=== PATIENT | female | born 1965 | race Caucasian/White ===

== ENCOUNTER 2019-01-01 09:15 | Emergency (ER) | payer MEDICARE, MEDICAID ==
[~2019-01-01] VITALS: Ht 149.9 cm; Wt 70.3 kg
[~2019-01-01 09:15] MED LIST: ACYC200C PO; ASP81TEC PO; ATEN25TA PO; NTR.4SL SL; QUIN1TAB3 PO
--- NOTE | 2019-01-01 09:38 | ED General ---
General Chief Complaint: Respiratory Problems Stated Complaint: SOB,NAUSEA - HAS GAINED 6 LBS SINCE YESTERDAY Source of Information: Patient History of Present Illness Date Seen by Provider: January 01, 2019 Time Seen by Provider: 09:38 Initial Comments Patient presents emergency department for evaluation of shortness of breath and weight gain. Patient says she has gained approximately 20 pounds since July and she said she has gained 6 pounds overnight. She has a history of stage II diastolic congestive heart failure and follows with a electronic page makeup system operator at [facility]. She is on torsemide currently as the furosemide stopped working for her. She said she took 80 mg of her Lasix this morning. She says the shortness of breath can happen at rest and exertion is worse when she lies flat. She was able to walk to a room from the front with no noticeable dyspnea. She has had a heart catheterization in 2012 that showed no signs of ischemia. She says that she has felt achy in all her joints and muscles and tired since yesterday along with nausea. She does have chronic back pain issues and says her back is hurting more as well. She has had no incontinence weakness numbness tingling. She is in no obvious distress with normal vital signs including conduction saturation 100% and a normal blood pressure. Allergies and Home Medications Allergies Coded Allergies: Codeine (Verified Allergy, 04/21/13) meperidine (Verified Allergy, 04/21/13) Home Medications Acyclovir 200 Mg Cap, 200 MG PO BID PRN, (Reported) Aspirin 81 Mg Tabec, 81 MG PO DAILY, (Reported) Atenolol 25 Mg Tablet, 25 MG PO DAILY, (Reported) Nitroglycerin 0.4 Mg Subl, 0.4 MG SL NEEDED, (Reported) for chest pain Quinapril/Hydrochlorothiazide 1 Tab Tablet, 1 TAB PO DAILY, (Reported) Patient Home Medication List Home Medication List Reviewed: Yes Review of Systems Review of Systems Constitutional: No chills, No fever EENTM: No blurred vision Respiratory: No cough; dyspnea on exertion, short of breath Cardiovascular: No chest pain; edema Gastrointestinal: No abdominal pain Genitourinary: No dysuria Musculoskeletal: joint pain, muscle pain Skin: No rash Psychiatric/Neurological: Denies Headache All Other Systems Reviewed Negative Unless Noted: Yes Physical Exam Vital Signs Vital Signs - First Documented 01/01/19 09:22 Temp 97.8 Pulse 89 Resp 20 B/P (MAP) 151/85 (107) Pulse Ox 98 O2 Delivery Room Air Capillary Refill : Height, Weight, BMI Height: '" Weight: 153lbs. oz. 69.069954cs; BMI Method: General Appearance: No Apparent Distress, WD/WN HEENT: PERRL/EOMI Neck: Full Range of Motion Respiratory: Chest Non Tender, No Accessory Muscle Use, No Respiratory Distress , Other (breath sounds slightly diminished but no crackles or wheezing noted) Cardiovascular: Regular Rate, Rhythm, No Gallop, No JVD, No Murmur, Normal Peripheral Pulses, Other (1+ edema in bilateral lower extremities) Gastrointestinal: Non Tender, Soft Back: Normal Inspection, No Vertebral Tenderness Extremity: Normal Capillary Refill Neurologic/Psychiatric: Alert, Oriented x3 Skin: Normal Color, Warm/Dry Progress/Results/Core Measures Suspected Sepsis SIRS Temperature: Pulse: Respiratory Rate: Laboratory Tests 01/01/19 09:27: White Blood Count 6.1 Blood Pressure / Mean: Laboratory Tests 01/01/19 09:27: Creatinine 0.72, INR Comment 0.9, Platelet Count 289, Total Bilirubin 0.4 Results/Orders Lab Results Laboratory Tests Test 01/01/19 09:27 01/01/19 09:53 Range/Units White Blood Count 6.1 4.3-11.0 10^3/uL Red Blood Count 4.40 4.35-5.85 10^6/uL Hemoglobin 13.5 11.5-16.0 G/DL Hematocrit 40 35-52 % Mean Corpuscular Volume 90 80-99 FL Mean Corpuscular Hemoglobin 31 25-34 PG Mean Corpuscular Hemoglobin Concent 34 32-36 G/DL Red Cell Distribution Width 12.4 10.0-14.5 % Platelet Count 289 130-400 10^3/uL Mean Platelet Volume 9.3 7.4-10.4 FL Neutrophils (%) (Auto) 44 42-75 % Lymphocytes (%) (Auto) 46 H 12-44 % Monocytes (%) (Auto) 8 0-12 % Eosinophils (%) (Auto) 1 0-10 % Basophils (%) (Auto) 1 0-10 % Neutrophils # (Auto) 2.7 1.8-7.8 X 10^3 Lymphocytes # (Auto) 2.8 1.0-4.0 X 10^3 Monocytes # (Auto) 0.5 0.0-1.0 X 10^3 Eosinophils # (Auto) 0.1 0.0-0.3 10^3/uL Basophils # (Auto) 0.0 0.0-0.1 10^3/uL Prothrombin Time 12.4 12.2-14.7 SEC INR Comment 0.9 0.8-1.4 Activated Partial Thromboplast Time 26 24-35 SEC Sodium Level 145 135-145 MMOL/L Potassium Level 4.0 3.6-5.0 MMOL/L Chloride Level 104 98-107 MMOL/L Carbon Dioxide Level 21 21-32 MMOL/L Anion Gap 20 H 5-14 MMOL/L Blood Urea Nitrogen 22 H 7-18 MG/DL Creatinine 0.72 0.60-1.30 MG/DL Estimat Glomerular Filtration Rate > 60 BUN/Creatinine Ratio 31 Glucose Level 92 70-105 MG/DL Calcium Level 9.4 8.5-10.1 MG/DL Corrected Calcium 9.2 8.5-10.1 MG/DL Magnesium Level 2.1 1.8-2.4 MG/DL Total Bilirubin 0.4 0.1-1.0 MG/DL Aspartate Amino Transf (AST/SGOT) 15 5-34 U/L Alanine Aminotransferase (ALT/SGPT) 17 0-55 U/L Alkaline Phosphatase 76 40-136 U/L Troponin T 10 <=10 NG/L Pro-B-Type Natriuretic Peptide 225.0 H <75.0 PG/ML Total Protein 6.8 6.4-8.2 GM/DL Albumin 4.3 3.2-4.5 GM/DL Urine Color YELLOW Urine Clarity CLEAR Urine pH 6.0 5-9 Urine Specific [place] <1.005 1.016-1.022 Urine Protein NEGATIVE NEGATIVE Urine Glucose (UA) NEGATIVE NEGATIVE Urine Ketones NEGATIVE NEGATIVE Urine Nitrite NEGATIVE NEGATIVE Urine Bilirubin NEGATIVE NEGATIVE Urine Urobilinogen 0.2 NORMAL MG/DL Urine Leukocyte Esterase TRACE NEGATIVE Urine RBC (Auto) 1+ H NEGATIVE Urine RBC 0-2 /HPF Urine WBC RARE /HPF Urine Squamous Epithelial Cells 0-2 /HPF Urine Crystals NONE /LPF Urine Bacteria NONE /HPF Urine Casts NONE /LPF Urine Mucus NEGATIVE /LPF Urine Culture Indicated NO My Orders Orders - DOUG SNEED DO Chest 1 View Ap/Pa Only (01/01/19 09:38) Ua Culture If Indicated (01/01/19 09:38) Troponin T (01/01/19 09:38) Cbc With Automated Diff (01/01/19 09:38) Comprehensive Metabolic Panel (01/01/19 09:38) Magnesium (01/01/19 09:38) Partial Thromboplastin Time (01/01/19 09:38) Probnp Fs (01/01/19 09:38) Protime With Inr (01/01/19 09:38) Morphine Injection (Morphine Injection (01/01/19 09:47) Ondansetron Injection (Zofran Injectio (01/01/19 10:00) Furosemide Injection (Lasix Injection) (01/01/19 10:00) Ekg Tracing (01/01/19 09:26) Medications Given in ED Current Medications Medications Dose Ordered Sig/Nalini Route Start Time Stop Time Status Last Admin Dose Admin Furosemide 40 mg ONCE ONCE IVP 01/01/19 10:00 01/01/19 10:01 DC 01/01/19 09:57 40 MG Ondansetron HCl 4 mg ONCE ONCE IVP 01/01/19 10:00 01/01/19 10:01 DC 01/01/19 09:58 4 MG Vital Signs/I&O 01/01/19 09:22 Temp 97.8 Pulse 89 Resp 20 B/P (MAP) 151/85 (107) Pulse Ox 98 O2 Delivery Room Air Capillary Refill : Progress Note : Progress Note Patient does not look particularly ill as her vital signs are normal and she has no respiratory distress even with exertion or walking to the x-ray machine and back. Her workup is rather benign as well as she has a normal chest x-ray and her BNP is slightly elevated at 225 which she thinks her baseline is around 150. In my opinion she has a mild CHF exacerbation as well as likely viral syndrome given the diffuse myalgias arthralgias and nausea. Given she appears well with benign workup I told her that she could be treated as an outpatient after getting IV Lasix here. I told her she should contact her electronic page makeup system operator to see if there is any further medication adjustments can be made to help her congestive heart failure or further testing such as an echocardiogram may be indicated. I do not see any reason for emergent transfer or further workup she' ll be discharged in stable condition told to use her albuterol every 4 hours take her Zofran for nausea and continue taking her medications as prescribed. Patient aware and agreeable with plan for discharge and verbalized understanding of the need for short-term follow-up and strict ED return precautions discussed as above. Departure Impression Primary Impression: CHF exacerbation Additional Impression: Viral syndrome Disposition: 01 HOME, SELF-CARE Condition: Stable Departure-Patient Inst. Decision time for Depature: 10:47 Referrals: RAMONA CLEMENT MD (PCP) Primary Care Physician DOUG SNEED DO January 01, 2019 09:38
[2019-01-01 09:46] LABS: BASOPHILS % (AUTO) 1 % (0-10); EOSINOPHILS % (AUTO) 1 % (0-10); HEMATOCRIT 40 % (35-52); HEMOGLOBIN 13.5 G/DL (11.5-16.0); LYMPHOCYTES # (AUTO) 2.8 X 10^3 (1.0-4.0); LYMPHOCYTES % (AUTO) 46 % (12-44); MEAN CORPUSCULAR HEMOGLOBIN 31 PG (25-34); MEAN CORPUSCULAR HGB CONC 34 G/DL (32-36); MEAN CORPUSCULAR VOLUME 90 FL (80-99); MEAN PLATELET VOLUME 9.3 FL (7.4-10.4); MONOCYTES % (AUTO) 8 % (0-12); NEUTROPHILS # (AUTO) 2.7 X 10^3 (1.8-7.8); NEUTROPHILS % (AUTO) 44 % (42-75); PLATELET COUNT 289 10^3/uL (130-400); RED CELL DISTRIBUTION WIDTH 12.4 % (10.0-14.5); WHITE BLOOD COUNT 6.1 10^3/uL (4.3-11.0)
[2019-01-01 09:47] LABS: EOSINOPHILS # (AUTO) 0.1 10^3/uL (0.0-0.3); MONOCYTES # (AUTO) 0.5 X 10^3 (0.0-1.0)
[2019-01-01] MEDS ORDERED: morphine INJ 10 MG/ML 1ML (SYR OR VIAL) IVP STA (09:47)
[2019-01-01 09:55] LABS: INR 0.9 (0.8-1.4); PROTHROMBIN TIME PATIENT 12.4 SEC (12.2-14.7)
[2019-01-01] MEDS ORDERED: ONDANSETRON 4 MG/2 ML (SDV) Z0FRAN IVP ONE (10:00)
[2019-01-01] MEDS ORDERED: FUROSEMIDE 40 MG/4 ML INJ (LASIX) IVP ONE ×2 (10:00→10:45)
--- NOTE | 2019-01-01 10:04 | Diagnostic Imaging Report ---
EXAM: CHEST 1 VIEW AP/PA ONLY INDICATION: Nausea. Shortness of breath. COMPARISON: None FINDINGS: Normal heart size and central pulmonary vascularity. No focal pulmonary opacity, pleural effusion or pneumothorax. No acute osseous findings. Right apex thoracic scoliosis. Partially visualized postoperative changes in the lumbar spine. IMPRESSION: No acute cardiopulmonary findings. Dictated by: Dictated on workstation # [id number]
[2019-01-01 10:07] LABS: BILIRUBIN,URINE NEGATIVE (NEGATIVE); CLARITY,URINE CLEAR; COLOR,URINE YELLOW; GLUCOSE, URINE (UA) NEGATIVE (NEGATIVE); KETONES,URINE NEGATIVE (NEGATIVE); LEUKOCYTE ESTERASE ,URINE TRACE (NEGATIVE); NITRITE,URINE NEGATIVE (NEGATIVE); PROTEIN,URINE NEGATIVE (NEGATIVE); RBC,URINE 0-2 /HPF; SQUAMOUS EPITHELIAL CELL,UR 0-2 /HPF; UROBILINOGEN,URINE 0.2 MG/DL (NORMAL); WBC,URINE RARE /HPF
[2019-01-01 10:14] LABS: BUN/CREATININE RATIO 31; CARBON DIOXIDE 21 MMOL/L (21-32); CHLORIDE 104 MMOL/L (98-107); CREATININE SERUM 0.72 MG/DL (0.60-1.30); GFR ESTIMATED > 60; GLUCOSE 92 MG/DL (70-105); SODIUM 145 MMOL/L (135-145)
[2019-01-01 10:15] LABS: ALANINE AMINOTRANSFERASE 17 U/L (0-55); ALBUMIN 4.3 GM/DL (3.2-4.5); BILIRUBIN,TOTAL 0.4 MG/DL (0.1-1.0); CALCIUM 9.4 MG/DL (8.5-10.1); MAGNESIUM 2.1 MG/DL (1.8-2.4); TOTAL PROTEIN 6.8 GM/DL (6.4-8.2)
[2019-01-01 10:35] LABS: ALKALINE PHOSPHATASE 76 U/L (40-136)
[2019-01-01] MEDS ORDERED: RT-ALBUTEROL/IPRATROPIUM 3 ML (DUONEB) VIAL INH ONE (10:45)
[2019-01-01 11:12] VITALS: BP 121/81
== END 2019-01-01 11:12 | disposition home or self-care (01) ==
LOC: EDUNIT# 09:15 → ER FS 09:19
DX: I50.30 Unspecified diastolic (congestive) heart failure (principal); B34.9 Viral infection, unspecified; Z88.5 Allergy status to narcotic agent; Z88.8 Allergy status to other drugs, medicaments and biological substances; Z79.82 Long term (current) use of aspirin; Z95.9 Presence of cardiac and vascular implant and graft, unspecified
CPT/HCPCS: 36415; 71045; 80053; 81000; 83735; 83880; 84484; 85025; 85610; 85730; 93005

== ENCOUNTER 2019-01-10 20:24 | Emergency (ER) | payer MEDICARE, MEDICAID ==
[~2019-01-10] VITALS: Ht 149.9 cm; Wt 71.7 kg
--- OUTSIDE RECORDS SUMMARY | 2019-01-10 20:30 | XMS REPORT | Clinical Summary ---
Author Author [facility] Organization [facility] Address Unknown Phone Unavailable Care Team Providers Care Cake Puncher Name Role Phone Ralph Lukeryan HOLLI PCP Source Comments Some departments are not documenting in the electronic medical record. If you do not see the information that you expected, contact Release of Information in the Health Information Management department at [phone] for further assistance in locating additional records.[facility] Allergies Comments Active Allergy Reactions Severity Noted Date Codeine HIVES Medium 06/17/2018 Meperidine ANAPHYLAXIS High 06/17/2018 Medications End Date Status Medication Sig Dispensed Refills Start Date Active gabapentin (NEURONTIN) Take two 180 capsule 3 300 mg capsule capsules by 8 mouth three times daily. Active duloxetine DR (CYMBALTA) Take two 60 capsule 5 30 mg capsule capsules by 8 mouth daily. 30mg 1 by mouth daily x 1 week, then 2 by mouth daily. Active pregabalin (LYRICA) 150 Take one 90 capsule 5 201 mg capsule capsule by 8 mouth three times daily. Active furosemide (LASIX) 40 mg Take 40 mg by 0 tablet mouth every morning. Active tamsulosin HCl Take 30 mg by 0 (TAMSULOSIN PO) mouth. Active metoprolol XL (TOPROL XL) Take 50 mg by 0 50 mg extended release mouth twice tablet daily. Active ALPRAZolam (XANAX) 1 mg Take 1 mg by 0 tablet mouth at bedtime as needed for Anxiety. Active diltiazem CD (CARTIA XT) Take 150 mg 0 120 mg capsule by mouth daily. Active acyclovir (ZOVIRAX) 200 Take 200 mg 0 mg capsule by mouth twice daily. Active ASPIRIN PO Take 81 mg by 0 mouth. Active tiZANidine (ZANAFLEX) 4 Take one 90 tablet 1 mg tablet tablet by 9 mouth three times daily as needed. For muscle spasms. Active HYDROcodone/acetaminophen Take one 8 tablet 0 (NORCO) 5/325 mg tablet tablet by 9 mouth every 6 hours as needed for Pain Active Problems Problem Noted Date Failed back syndrome, lumbar 01/07/2019 Thoracic back pain 01/07/2019 Encounters Care Team Description Date Type Specialty Jimmy Lau MD Patient Questions 01/10/2019 Telephone Anesthesia Pain Jimmy Lau MD 01/07/2019 Anesthesia Event Jimmy Lau MD NEVRO SPINAL CORD STIMULATOR IMPLANT 01/07/2019 Surgery Jimmy Lau MD Failed back syndrome, lumbar 01/07/2019 Hospital Encounter Jimmy Lau MD Medication Question 01/07/2019 Telephone Anesthesia Pain Marlene Anika Records Request 01/03/2019 Telephone Cardiology Adrienne Butler Diastolic congestive heart failure, unspecified HF chronicity (HCC) (Primary Dx); Essential hypertension 01/03/2019 Orders Only Cardiology Jimmy Lau MD Care Coordination 12/29/2018 Telephone Anesthesia Pain Anshu Lyon MD General Question 12/16/2018 Telephone Orthopedic Surgery Jimmy Lau MD 12/14/2018 Prep for Case Anesthesia Pain Jimmy Lau MD Failed back syndrome of lumbar spine (Primary Dx) 12/13/2018 Prep for Case Anesthesia Pain Lorena Cotton APRN Encounter for other preprocedural examination 12/10/2018 Hospital Lab Encounter Lorena Cotton APRN 12/10/2018 Hospital Radiology Encounter Lorena Cotton APRN 12/10/2018 Hospital Radiology Encounter Lorena Cotton APRN Failed back syndrome of lumbar spine (Primary Dx); Lumbar radiculopathy; Spinal cord stimulator status; Preop testing; Lumbar spondylosis 12/10/2018 Office Visit Anesthesia Pain Jimmy Lau MD 12/03/2018 Hospital Radiology Encounter Odette Galarza PTSD (post-traumatic stress disorder) (Primary Dx); Encounter for counseling for care management of patient with chronic conditions and complex health needs using nurse-based model 11/05/2018 Office Visit Psychiatry Jimmy Lau MD Failed back syndrome of lumbar spine (Primary Dx); Lumbar radiculopathy 10/27/2018 Orders Only Anesthesia Pain Jimmy Lau MD Failed back syndrome of lumbar spine (Primary Dx); Lumbar radiculopathy 10/22/2018 Office Visit Pain Management from Last 3 Months Family History Medical History Relation Name Comments Melanoma Brother Cirrhosis Father Cancer-Lung Mother Relation Name Status Comments Brother Alive Father Mother Social History Date Tobacco Use Types Packs/Day Years Used Never Smoker Smokeless Tobacco: Never Used Sex Assigned at Date Recorded Not on file Industry Job Start Date Occupation Not on file Not on file Not on file Travel End Travel History Travel Start No recent travel history available. Last Filed Vital Signs Time Taken Vital Sign Reading 01/07/2019 4:30 PM CDT Blood Pressure 104/79 01/07/2019 4:30 PM CDT Pulse 68 01/07/2019 4:30 PM CDT Temperature 36.4 C (97.6 F) 06/17/2018 12:43 PM CDT Respiratory Rate 16 01/07/2019 4:30 PM CDT Oxygen Saturation 98% - Inhaled Oxygen - Concentration 01/07/2019 1:00 PM CDT Weight 70.1 kg (154 lb 9.6 oz) 01/07/2019 1:00 PM CDT Height 149.9 cm (4' 11") 01/07/2019 1:00 PM CDT Body Mass Index 31.23 Plan of Treatment Health Maintenance Due Date Last Done Comments HEPATITIS C SCREENING 1964 PHYSICAL (COMPREHENSIVE) 1971 EXAM HIV SCREENING 1979 DTAP/TDAP VACCINES (1 - 1982 Tdap) CERVICAL CANCER SCREENING 1994 BREAST CANCER SCREENING 2004 COLORECTAL CANCER 2014 SCREENING SHINGLES RECOMBINANT 2014 VACCINE (1 of 2) INFLUENZA VACCINE 05/31/2019 Implants Device Identifier Shelf Expiration Date Model / Serial / Lot Implanted Type Area Manufactur er 07/16/2021 [id number] / [id number] / [id number] Blue Perc Lead Kit - [id number] N/A: Back UNIDENTIFI Implanted: Qty: 2 on 01/07/2019 by ED MFG Jimmy Lau MD 08/12/2021 [id number] / [id number] / [id number] Kit Lead [place] [id number] - [id number] N/A: Back NEVRO Implanted: Qty: 1 on 01/07/2019 by Jimmy Bravo MD N 10/20/2020 [id number] / [id number] / [id number] Ipg Kit - [id number] N/A: Back NEVRO Implanted: Qty: 1 on 01/07/2019 by Jimmy Bravo MD N Procedures Comments Procedure Name Priority Date/Time Associated Diagnosis FLUORO MOBILE IN OR Routine 01/07/2019 3:11 PM CDT PERCUTANEOUS IMPLANTATION 01/07/2019 Failed back syndrome of EPIDURAL NEUROSTIMULATOR 1:59 PM CDT lumbar spine ELECTRODE ARRAY INSERTION/ REPLACEMENT 01/07/2019 Failed back syndrome of SPINAL NEUROSTIMULATOR 1:59 PM CDT lumbar spine 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 BASIC METABOLIC PANEL STAT 01/07/2019 1:45 PM CDT MRSA SCREEN Routine 12/10/2018 Preop testing 9:30 AM CDT T SPINE AP & LAT 2 VIEWS Routine 12/10/2018 Failed back syndrome of 8:58 AM CDT lumbar spine Lumbar radiculopathy Spinal cord stimulator status L SPINE AP & LATERAL Routine 12/10/2018 Failed back syndrome of 8:57 AM CDT lumbar spine Lumbar radiculopathy Spinal cord stimulator status FLUORO MOBILE IN OR Routine 12/03/2018 Thoracic radiculopathy 2:08 PM CDT from Last 3 Months Results * FLUORO MOBILE IN OR (01/07/2019 3:11 PM CDT) Only the most recent of 2 results within the time period is included. Narrative Performed At This order has been auto finalized and does not contain a result. MIRNA NISA Performing Organization Address City/State/Zipcode Phone Number MIRNA PAULA * BASIC METABOLIC PANEL (01/07/2019 1:45 PM CDT) Sodium 139 137 - 147 MMOL/L [facility] Potassium 4.0Comment: SLT HEMOLYSIS 3.5 - 5.1 MMOL/L [facility] Chloride 105 98 - 110 MMOL/L [facility] CO2 26 21 - 30 MMOL/L [facility] Anion Gap 8 3 - 12 [facility] Glucose 90 70 - 100 MG/DL [facility] Blood Urea 20 7 - 25 MG/DL [facility] Nitrogen Creatinine 0.73 0.4 - 1.00 MG/DL [facility] Calcium 9.4 8.5 - 10.6 MG/DL MA[facility] eGFR Non >60 >60 mL/min [facility] Comment: [place] The eGFR is not validated for use in drug dosing adjustments.Continue to use estimated creatinine clearance per dosing reference text.Please contact the Clinical Pharmacist for questions. eGFR >60 >60 mL/min [facility] [place] Comment: The eGFR is not validated for use in drug dosing adjustments.Continue to use estimated creatinine clearance per dosing reference text.Please contact the Clinical Pharmacist for questions. Specimen Blood Performing Organization Address City/State/Zipcode Phone Number [facility] [address] [place] [address] * MRSA SCREEN (12/10/2018 9:30 AM CDT) Battery Name MRSA SCREEN MAIN LAB Specimen NASAL MAIN LAB Description Special NONE MAIN LAB Requests Culture NO MRSA ISOLATED MAIN LAB Report Status FINAL [facility] 12/12/2018 Specimen Nasal Performing Organization Address City/[facility]/Zipcode Phone Number [facility] [address] [place] [address] * T SPINE AP & LAT 2 VIEWS (12/10/2018 8:58 AM CDT) Impressions Performed At Findings/impression: [facility] 1. A left convexity upper thoracic scoliotic curvature measures 42 degrees from T3 to T8. A right convexity thoracolumbar scoliosis measures 21 degrees from T8 to L1. 2. Spinal stimulator electrodes overlie the posterior aspect of the thoracic spinal canal. One electrode has its tip at the level of T2. A second electrode has its tip at the level of T9. Electrodes appear to enter the spinal canal at the T11-12 level. 3. Thoracic vertebral body heights appear well-maintained. Small osteophytes are present involving the mid and lower thoracic spine. Finalized by Torey Orozco M.D. on 12/10/2018 9:45 AM. Dictated by Torey Orozco M.D. on 12/10/2018 9:39 AM. Narrative Performed At Thoracic spine [facility] Clinic data: Failed back syndrome of lumbar spine Two projections of the thoracic spine were obtained. Procedure Note Interface, Radiant Results - 12/10/2018 9:48 AM CDT Thoracic spine Clinic data: Failed back syndrome of lumbar spine Two projections of the thoracic spine were obtained. IMPRESSION Findings/impression: 1. A left convexity upper thoracic scoliotic curvature measures 42 degrees from T3 to T8. A right convexity thoracolumbar scoliosis measures 21 degrees from T8 to L1. 2. Spinal stimulator electrodes overlie the posterior aspect of the thoracic spinal canal. One electrode has its tip at the level of T2. A second electrode has its tip at the level of T9. Electrodes appear to enter the spinal canal at the T11-12 level. 3. Thoracic vertebral body heights appear well-maintained. Small osteophytes are present involving the mid and lower thoracic spine. Finalized by Torey Orozco M.D. on 12/10/2018 9:45 AM. Dictated by Torey Orozco M.D. on 12/10/2018 9:39 AM. Performing Organization Address City/State/Zipcode Phone Number [facility] * L SPINE AP & LATERAL (12/10/2018 8:57 AM CDT) Impressions Performed At Findings/impression: [facility] 1. Posterior surgical construct is noted extending from L3 to S1. Interbody fusion material is present at the L5-S1 level. The L5-S1 level is partially obscured on the lateral projection from the powerpack from the spinal stimulator electrodes. Spinal stimulator electrodes appear to enter the spinal canal at the T11-12 level. 2. Vertebral body heights appear fairly well maintained. 3. The SI joints appear unremarkable. Finalized by Torey Orozco M.D. on 12/10/2018 9:48 AM. Dictated by Torey Orozco M.D. on 12/10/2018 9:45 AM. Narrative Performed At Lumbar spine [facility] CLINICAL DATA: Two projections were obtained. This is made to patient's prior studies. Procedure Note Interface, Radiant Results - 12/10/2018 9:51 AM CDT Lumbar spine CLINICAL DATA: Two projections were obtained. This is made to patient's prior studies. IMPRESSION Findings/impression: 1. Posterior surgical construct is noted extending from L3 to S1. Interbody fusion material is present at the L5-S1 level. The L5-S1 level is partially obscured on the lateral projection from the powerpack from the spinal stimulator electrodes. Spinal stimulator electrodes appear to enter the spinal canal at the T11-12 level. 2. Vertebral body heights appear fairly well maintained. 3. The SI joints appear unremarkable. Finalized by Torey Orozco M.D. on 12/10/2018 9:48 AM. Dictated by Torey Orozco M.D. on 12/10/2018 9:45 AM. Performing Organization Address City/State/Zipcode Phone Number [facility] RES[facility] from Last 3 Months Insurance Type Payer Benefit Subscriber ID Effective Phone Address Plan / Dates Group Medicare MEDICARE MEDICARE xxxxxxxxxx 2018- PART A AND Present B Medicaid [place] [employer] xxxxxxxxxxx 2010- STATE Present HEALTH Advance Directives Patient has advance care planning documents on file. For more information, please contact: [address] [address]
--- OUTSIDE RECORDS SUMMARY | 2019-01-10 20:30 | XMS REPORT | Encounter Summary ---
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] P rocedures FL INSJ/RPLCMT SPI NPGR DIR/INDUXIVE COUPLING FL PRQ IMPLTJ NSTIM ELECTRODE ARRAY EPIDURAL FL PRQ IMPLTJ NSTIM ELECTRODE ARRAY EPIDURAL FL INSJ/RPLCMT SPI NPGR DIR/INDUXIVE COUPLING FL ELEC EMA IMPLT NPGT CPLX SP/PN PRGRMG FL IMPLT NEUROSTIM ELCTR EACH NEVRO SPINAL CORD STIMULATOR IMPLANT PERCUTANEOUS IMPLANTATION EPIDURAL NEUROSTIMULATOR ELECTRODE ARRAY Encounter Details Care Team Description Date Type Department Jimmy Lau MD [address] [place] [address] [phone] 01/07/2019 Anesthesia [facility] [place] [address] [address] Anesthesia Record Responsible Anesthesiologist Anesthesia Start Time Anesthesia Stop Time Procedure Name Marco Stokes MD 01/07/19 1420 01/07/19 1544 NEVRO SPINAL CORD STIMULATOR IMPLANT (N/A Back) Date Time Event Comment 1323 2019 1354 AN Equip Check 1419 Out of Pre Procedure 1420 Anes Start 1420 In Room 1421 An Start Data 1421 Start Supplemental O2 1421 Anesthesia Ready 1440 Proc Start 1541 an stop data 1543 Handoff to RN I completed my SBAR handoff to the receiving nurse. 1544 An Stop Meds Name Total midazolam (VERSED) 1 mg/mL injection 2 mg fentaNYL PF (SUBLIMAZE) injection 100 mcg lidocaine (2%) 200 mg/10mL Injection 60 mg syringe propofol (DIPRIVAN) 200 mg/ 20 mL 90 mg injection (VIAL) propofol (DIPRIVAN) infusion 423.4 mg ceFAZolin (ANCEF) IVP 2 g 2 g phenylephrine (GARCAÍ-SYNEPHRINE) 0.1 mg/mL 100 mcg injection (SYRINGE) ketamine (KETALAR) 10 mg/mL injection 30 mg ondansetron (ZOFRAN) injection 4 mg lactated ringers infusion (1000 mL bag) 600 mL * Name O2 N2O Inspired N2O * No blood administrations on file. Removal Type Details Placement Wounds 01/07/19; 1446; Mid; Surgical Incision 01/07/19 1446 by (NOT for Valerie Liao RN Pressure Injuries) 01/07/19 1658 by Ruth Allen RN Peripheral 01/07/19; 1315; RN; L; Hand; 20 G; No; 01/07/19 1315 by IV 1; Therapy completed; 01/07/19; 1658 Teena Xiong RN documented in this encounter Social History Date Tobacco Use Types Packs/Day Years Used Never Smoker Smokeless Tobacco: Never Used Sex Assigned at Date Recorded Not on file Industry Job Start Date Occupation Not on file Not on file Not on file Travel End Travel History Travel Start No recent travel history available. documented as of this encounter Functional Status Date of Assessment Functional Status Response 06/18/2018 Does the patient have a hearing impairment: No 06/18/2018 Does the patient have a visual impairment: No 06/18/2018 Does the patient have impaired ambulation: No 06/18/2018 Does the patient have an activity of daily living No (ADL) impairment: 06/17/2018 Does the patient have an instrumental activity of No daily living (IADL) impairment: Date of Assessment Cognitive Status Response 06/18/2018 Does the patient have a cognitive impairment: No documented as of this encounter OR Notes * Anesthesia Postprocedure Evaluation - Odilon Oneill MD - 01/07/2019 4: 44 PM CDT Post-Anesthesia Evaluation Name: Millie Ruelas : 1965 Age: 53 y.o. Sex: female Procedure Date: 01/07/2019 Procedure: Procedure(s) with comments: NEVRO SPINAL CORD STIMULATOR IMPLANT - CASE LENGTH 1.25 HOURS, MINGO TABLE, C- ARM, JURGEN REP NOTIFIED PERCUTANEOUS IMPLANTATION EPIDURAL NEUROSTIMULATOR ELECTRODE ARRAY Surgeon: Surgeon(s): Jimmy Lau MD Post-Anesthesia Vitals BP: 100/72 (01/07 1615) Temp: 36.6 C (97.9 F) (01/07 1549) Pulse: 68 (01/07 1630) Respirations: 19 PER MINUTE (01/07 1630) SpO2: 98 % (01/07 1630) O2 Delivery: None (Room Air) (01/07 1630) SpO2 Pulse: 69 (01/07 1630) Post Anesthesia Evaluation Note Evaluation location: pre/post Patient participation: recovered; patient participated in evaluation Level of consciousness: alert Pain score: 2 Pain management: adequate Hydration: normovolemia Temperature: 36.0C - 38.4C Airway patency: adequate Perioperative Events Perioperative events: no Post-op nausea and vomiting: no PONV Postoperative Status Cardiovascular status: hemodynamically stable Respiratory status: spontaneous ventilation Perioperative Events Perioperative Event: No Emergency Case Activation: No * Anesthesia Preprocedure Evaluation - Marco Stokes MD - 01/07/2019 1:21 PM CDT Anesthesia Pre-Procedure Evaluation Name: Millie Ruelas : 1965 Age: 53 y.o. Sex: female Procedure Date: 01/07/2019 Procedure: Procedure(s) with comments: NEVRO SPINAL CORD STIMULATOR IMPLANT - CASE LENGTH 1.25 HOURS, MINGO TABLE, C- ARM, JURGEN REP NOTIFIED PERCUTANEOUS IMPLANTATION EPIDURAL NEUROSTIMULATOR ELECTRODE ARRAY Physical Assessment Vital Signs (last filed in past 24 hours): Temp: 36.4 C (97.5 F) (01/07 1300) Pulse: 64 (01/07 1300) Respirations: 12 PER MINUTE (01/07 1300) O2 Delivery: None (Room Air) (01/07 1300) Height: 149.9 cm (59") (01/07 1300) Weight: 70.1 kg (154 lb 9.6 oz) (01/07 1300) Patient History Allergies Allergen Reactions Demerol [Meperidine] ANAPHYLAXIS Codeine HIVES Current Medications Medication Directions acyclovir (ZOVIRAX) 200 mg capsule Take 200 mg by mouth twice daily. ALPRAZolam (XANAX) 1 mg tablet Take 1 mg by mouth at bedtime as needed for Anxiety. ASPIRIN PO Take 81 mg by mouth. diltiazem CD (CARTIA XT) 120 mg capsule Take 150 mg by mouth daily. duloxetine DR (CYMBALTA) 30 mg capsule Take two capsules by mouth daily. 30mg 1 by mouth daily x 1 week, then 2 by mouth daily. furosemide (LASIX) 40 mg tablet Take 40 mg by mouth every morning. gabapentin (NEURONTIN) 300 mg capsule Take two capsules by mouth three times daily. metoprolol XL (TOPROL XL) 50 mg extended release tablet Take 50 mg by mouth twice daily. pregabalin (LYRICA) 150 mg capsule Take one capsule by mouth three times daily. tamsulosin HCl (TAMSULOSIN PO) Take 30 mg by mouth. tiZANidine (ZANAFLEX) 4 mg tablet Take one tablet by mouth three times daily as needed. For muscle spasms. Review of Systems/Medical History PONV Screening: Female gender and Non-smoker Airway - negative Pulmonary - negative Cardiovascular Exercise tolerance: <4 METS Beta Kyle therapy: Yes Beta blockers within 24 hours: Yes Hypertension, well controlled GI/Hepatic/Renal - negative Neuro/Psych Headaches Psychiatric history Depression Musculoskeletal Back pain (Failed back syndrome of lumbar spine.) Physical Exam Airway Findings Mallampati: II TM distance: >3 FB Neck ROM: full Mouth opening: good Airway patency: adequate Cardiovascular Findings: Negative Pulmonary Findings: Negative Abdominal Findings: Negative Neurological Findings: Negative Diagnostic Tests Hematology: No results found for: HGB, HCT, PLTCT, WBC, NEUT, ANC, LYMPH, ALC, ABSLYMPHCT, NATACHA, AMC, EOSA, ABC, BASOPHILS, MCV, MCH, MCHC, MPV, RDW General Chemistry: No results found for: NA, K, CL, CO2, GAP, BUN, CR, GLU, CA, KETONES, ALBUMIN, LACTIC, OBSCA, MG, TOTBILI, TOTBILCB, PO4 Coagulation: No results found for: PT, PTT, INR Anesthesia Plan ASA score: 3 Induction method: intravenous NPO status: acceptable Informed Consent Anesthetic plan and risks discussed with patient. Use of blood products discussed with patient Blood Consent: consented Plan discussed with: anesthesiologist. documented in this encounter Plan of Treatment Not on filedocumented as of this encounter Visit Diagnoses Not on filedocumented in this encounter Administered Medications Action Date Dose Rate Site Medication Order MAR Action 01/07/2019 2:33 PM CDT 2 g ceFAZolin (ANCEF) IVP 2 g Given 2 g, Intravenous, ONCE, 1 dose, Thu01/07/19 at 1300, Give Pre-Op < 60 minutes prior to first incision. (Given in OR) IV PUSH -- RECONSTITUTE each 1 g vial by adding 10 mL 0.9% NACL, patients < 120 kg, Pre-Op 01/07/2019 3:35 PM CDT 25 mcg fentaNYL citrate PF (SUBLIMAZE) Given injection INTRA-PROCEDURE MED, Starting Thu01/07/19 at 1425, Until Thu01/07/19 at 1551, Anesthesia Intra-op 25 mcg Given 01/07/2019 2:40 PM CDT 50 mcg Given 01/07/2019 2:25 PM CDT 01/07/2019 3:11 PM CDT 10 mg ketamine (KETALAR) injection Given INTRA-PROCEDURE MED, Starting Thu01/07/19 at 1507, Until Thu01/07/19 at 1551, Anesthesia Intra-op 20 mg Given 01/07/2019 3:07 PM CDT 01/07/2019 1:35 PM CDT lactated ringers infusion Given - New INTRA-PROCEDURE MED(CONT), Starting Thu Bag 01/07/19 at 1335, Until Thu01/07/19 at 1551, Anesthesia Intra-op 01/07/2019 2:26 PM CDT 60 mg lidocaine (PF) injection Given INTRA-PROCEDURE MED, Starting Thu01/07/19 at 1426, Until Thu01/07/19 at 1551, Anesthesia Intra-op 01/07/2019 2:18 PM CDT 2 mg midazolam (VERSED) injection Given Intravenous, INTRA-PROCEDURE MED, Starting Thu01/07/19 at 1418, Until Thu01/07/19 at 1551, Anesthesia Intra-op 01/07/2019 3:23 PM CDT 4 mg ondansetron (ZOFRAN) injection Given INTRA-PROCEDURE MED, Starting Thu01/07/19 at 1523, Until Thu01/07/19 at 1551, Anesthesia Intra-op 01/07/2019 2:47 PM CDT 100 mcg phenylephrine in NS injection syringe Given INTRA-PROCEDURE MED, Starting Thu01/07/19 at 1447, Until Thu01/07/19 at 1551, Anesthesia Intra-op 01/07/2019 2:58 PM CDT 80 mcg/kg/min 33.6 mL/hr propofol (DIPRIVAN) infusion Dose/Rate 50 mL, Intravenous, INTRA-PROCEDURE Change MED(CONT), Starting Thu01/07/19 at 1426, Until Thu01/07/19 at 1551, Anesthesia Intra-op 100 mcg/kg/min 42.1 mL/hr Dose/Rate Change 01/07/2019 2:40 PM CDT 80 mcg/kg/min 33.6 mL/hr Given - New Bag 01/07/2019 2:26 PM CDT 01/07/2019 3:28 PM CDT 20 mg propofol (DIPRIVAN) injection Given INTRA-PROCEDURE MED, Starting Thu01/07/19 at 1426, Until Thu01/07/19 at 1551, Anesthesia Intra-op 10 mg Given 01/07/2019 2:40 PM CDT 10 mg Given 01/07/2019 2:39 PM CDT documented in this encounter
--- OUTSIDE RECORDS SUMMARY | 2019-01-10 20:30 | XMS REPORT | Encounter Summary ---
Author Author [facility] Organization [facility] Address Unknown Phone Unavailable Care Team Providers Care Chicken Raiser Name Role Phone RosasLuke sanz HOLLI PCP Reason for Visit * Reason Comments Patient Questions Encounter Details Care Team Description Date Type Department Jimmy Lau MD [address] [facility] [place], [place] [id number] Patient Questions 01/10/2019 Telephone The [facility] [address] [id number] Social History Date Tobacco Use Types Packs/Day [...] impairment: No documented as of this encounter Miscellaneous Notes * Telephone Encounter - Carlos Kruger RN - 01/10/2019 2:27 PM CDT Rec'd response from Dr Lau stating, "Thigh pain is probably nerve irritation from the procedure and should improve over 3-5 days from the implant. Weight gain is unlikely related to the procedure- she should contact her lieutenant general or PCP." Call placed to pt with update. * Telephone Encounter - Carlos Kruger RN - 01/10/2019 9:12 AM CDT Pt called reporting she had SCS implant on Thursday. She had to call the fermentation manager doctor yesterday due to severe pain in her left thigh. She continues to have the thigh pain, and noticed she had 9lb weight gain over night. Reports her abd is distended. She also has a call out to her lieutenant general about the weight gain as she feels it's her heart, but she wants Dr. Calderon opinion as well. Message routed to Dr. Lau. documented in this encounter Plan of Treatment Not on filedocumented as of this encounter Visit Diagnoses Not on filedocumented in this encounter
--- OUTSIDE RECORDS SUMMARY | 2019-01-10 20:30 | XMS REPORT | Encounter Summary ---
Author Author [facility] Organization [facility] Address Unknown Phone Unavailable Care Team Providers Care Air Traffic Control Specialist Name Role Phone RosasLuke sanz SPECIAL SHOPPER PCP Reason for Visit * Auth/Cert Referred By Contact Referred To Contact Status Reason Specialty Diagnoses / Procedures Diagnoses Failed back syndrome of lumbar spine Failed back syndrome of lumbar spine [M96.1] P rocedures ID INSJ/RPLCMT SPI NPGR DIR/INDUXIVE COUPLING ID PRQ IMPLTJ NSTIM ELECTRODE ARRAY EPIDURAL ID PRQ IMPLTJ NSTIM ELECTRODE ARRAY EPIDURAL ID INSJ/RPLCMT SPI NPGR DIR/INDUXIVE COUPLING ID ELEC EMA IMPLT NPGT CPLX SP/PN PRGRMG ID IMPLT NEUROSTIM ELCTR EACH NEVRO SPINAL CORD STIMULATOR IMPLANT PERCUTANEOUS IMPLANTATION EPIDURAL NEUROSTIMULATOR ELECTRODE ARRAY Encounter Details Care Team Description Date Type Department Jimmy Lau MD [address] [place] [address] [phone] Failed back syndrome, lumbar 01/07/2019 [facility] [place] [address] [address] Social History Date Tobacco Use Types Packs/Day Years Used Never Smoker Smokeless Tobacco: Never Used Sex Assigned at Date Recorded Not on file Industry Job Start Date Occupation Not on file Not on file Not on file Travel End Travel History Travel Start No recent travel history available. documented as of this encounter Last Filed Vital Signs Time Taken Vital Sign Reading 01/07/2019 4:30 PM CDT Blood Pressure 104/79 01/07/2019 4:30 PM CDT Pulse 68 01/07/2019 4:30 PM CDT Temperature 36.4 C (97.6 F) - Respiratory Rate - 01/07/2019 4:30 PM CDT Oxygen Saturation 98% - Inhaled Oxygen - Concentration 01/07/2019 1:00 PM CDT Weight 70.1 kg (154 lb 9.6 oz) 01/07/2019 1:00 PM CDT Height 149.9 cm (4' 11") 01/07/2019 1:00 PM CDT Body Mass Index 31.23 documented in this encounter Functional Status Date of Assessment [...] impairment: No documented as of this encounter Discharge Instructions * Patient Instructions* Ruth Allen RN - 01/07/2019 4:05 PM CDT Discharge Instructions: After Your Surgery Youve just had surgery. During surgery, you were given medicine called anesthesia to keep you relaxed and free of pain. After surgery, you may have some pain or nausea. This is common. Here are some tips for feeling better and getting well after surgery. Stay on schedule with your medicine. Going home Your healthcare provider will show you how to take care of yourself when you go home. He or she will also answer your questions. Have an adult family member or friend drive you home. For the first 24 hours after your surgery: Do not drive or use heavy equipment. Do not make important decisions or sign legal papers. Do not drink alcohol. Have someone stay with you, if needed. He or she can watch for problems and help keep you safe. Be sure to go to all follow-up visits with your healthcare provider. And rest after your surgery for as long as your healthcare provider tells you to. Coping with pain If you have pain after surgery, pain medicine will help you feel better. Take it as told, before pain becomes severe. Also, ask your healthcare provider or pharmacist about other ways to control pain. This might be with heat, ice, or relaxation. And follow any other instructions your surgeon or nurse gives you. Tips for taking pain medicine To get the best relief possible, remember these points: Pain medicines can upset your stomach. Taking them with a little food may help. Most pain relievers taken by mouth need at least 20 to 30 minutes to start to work. Taking medicine on a schedule can help you remember to take it. Try to time your medicine so that you can take it before starting an activity. This might be before you get dressed, go for a walk, or sit down for dinner. Constipation is a common side effect of pain medicines. Call your healthcare provider before taking any medicines such as laxatives or stool softeners to help ease constipation. Also ask if you should skip any foods. Drinkinglots of fluids andeating foodssuch as fruits and vegetables that are high in fiber can also help. Remember, do not take laxatives unless your surgeon has prescribed them. Drinking alcohol and taking pain medicine can cause dizziness and slow your breathing. It can even be deadly. Do not drink alcohol while taking pain medicine. Pain medicine can make you react more slowly to things. Do not drive or run machinery while taking pain medicine. Your healthcare providermay tell you to take acetaminophen to help ease your pain. Ask him or her how much you are supposed to take each day. Acetaminophen or other pain relievers may interact with your prescription medicines or other kofk-qli-ztfrbmy (OTC) medicines. Some prescription medicines have acetaminophen and other ingredients.Using both prescription and OTC acetaminophenfor paincan cause you to overdose. Readthe labels on your OTC medicineswith care. This will help youto clearly know the list of ingredients, how much to take, and anywarnings. It may also help you not take too muchacetaminophen.If you have questions or do not understand the information, ask your pharmacist or healthcare provider to explain it to you before you take the OTC medicine. Managing nausea Some people have an upset stomach after surgery. This is often because of anesthesia, pain, or pain medicine, or the stress of surgery. These tips will help you handle nausea and eat healthy foods as you get better. If you were on a special food plan before surgery, ask your healthcare provider if you should follow it while you get better. These tips may help: Do not push yourself to eat. Your body will tell you when to eat and how much. Start off with clear liquids and soup. They are easier to digest. Next try semi-solid foods, such as mashed potatoes, applesauce, and gelatin, as you feel ready. Slowly move to solid foods. Dont eat fatty, rich, or spicy foods at first. Do not force yourself to have 3 large meals a day. Instead eat smaller amounts more often. Take pain medicines with a small amount of solid food, such as crackers or toast, to avoid nausea. Call your surgeon if You still have pain an hour after taking medicine. The medicine may not be strong enough. You feel too sleepy, dizzy, or groggy. The medicine may be too strong. You have side effects like nausea, vomiting, or skin changes, such as rash, itching, or hives. If you have obstructive sleep apnea You were given anesthesia medicine during surgery to keep you comfortable and free of pain. After surgery, you may have more apnea spells because of this medicine and other medicines you were given. The spells may last longer than usual. At home: Keep using the continuous positive airway pressure (CPAP) device when you sleep. Unless your healthcare provider tells you not to, use it when you sleep, day or night. CPAP is a common device used to treat obstructive sleep apnea. Talk with your provider before taking any pain medicine, muscle relaxants, or sedatives. Your provider will tell you about the possible dangers of taking these medicines. Date Last Reviewed: 07/31/201619994193-3361 [employer]. [address] [place] [address], [place] [address]. All rights reserved. This information is not intended as a substitute for professional medical care. Always follow your healthcare professional's instructions. documented in this encounter Medications at Time of Discharge Start Date End Date Medication Sig Dispensed Refills acyclovir (ZOVIRAX) 200 Take 200 mg 0 mg capsule by mouth twice daily. ALPRAZolam (XANAX) 1 mg Take 1 mg by 0 tablet mouth at bedtime as needed for Anxiety. ASPIRIN PO Take 81 mg by 0 mouth. diltiazem CD (CARTIA XT) Take 150 mg 0 120 mg capsule by mouth daily. 06/30/[address] (CYMBALTA) Take two 60 capsule 5 30 mg capsule capsules by mouth daily. 30mg 1 by mouth daily x 1 week, then 2 by mouth daily. furosemide (LASIX) 40 mg Take 40 mg by 0 tablet mouth every morning. 06/17/2018 gabapentin (NEURONTIN) Take two 180 capsule 3 300 mg capsule capsules by mouth three times daily. 01/07/2019 HYDROcodone/acetaminophen Take one 8 tablet 0 (NORCO) 5/325 mg tablet tablet by mouth every 6 hours as needed for Pain metoprolol XL (TOPROL XL) Take 50 mg by 0 50 mg extended release mouth twice tablet daily. 08/23/2018 pregabalin (LYRICA) 150 Take one 90 capsule 5 mg capsule capsule by mouth three times daily. tamsulosin HCl Take 30 mg by 0 (TAMSULOSIN PO) mouth. 10/22/2018 tiZANidine (ZANAFLEX) 4 Take one 90 tablet 1 mg tablet tablet by mouth three times daily as needed. For muscle spasms. documented as of this encounter H&P Notes * Jimmy Lau MD - 01/07/2019 12:10 PM CDT Surgical History and Physical Examination Name: Millie Ruelas Admission Date: 01/07/2019 Assessment/Plan: Principal Problem: Failed back syndrome, lumbar Active Problems: Thoracic back pain 53 yo female with back pain due to failed back syndrome. -To OR for Nevro SCS implant, upper and mid thoracic leads - Consent signed, placed in chart - F/u in 7-10 days for staple removal, device activation __ Primary Care Physician: Luke Rosas Verified Chief Complaint: Back pain History of Present Illness: Millie Ruelas is a 53 y.o. female has mid and low back pain related to failed back syndrome. She has had 2 lumbar fusions. Her pain has been severe and functionally limiting. She has failed several medications, injections, and sessions of physical therapy. She had a spinal cord stimulator trial with 95% improvement in pain as well as functional improvement. Medical History: Diagnosis Date Diastolic congestive heart failure (HCC) 2012 Essential hypertension Headache Scoliosis Skin cancer Surgical History: Procedure Laterality Date SPINAL FUSION 2017 had two one in 2017 and 2018 BREAST BIOPSY 26 cyst in the breast HAND SURGERY TONSILLECTOMY TUBAL LIGATION Family History Problem Relation Age of Onset Cancer-Lung Mother Cirrhosis Father Melanoma Brother Social History Socioeconomic History Marital status: Spouse name: Not on file Number of children: Not on file Years of education: Not on file Highest education level: Not on file Occupational History Not on file Social Needs Financial resource strain: Not on file Food insecurity: Worry: Not on file Inability: Not on file Transportation needs: Medical: Not on file Non-medical: Not on file Tobacco Use Smoking status: Never Smoker Smokeless tobacco: Never Used Substance and Sexual Activity Alcohol use: Not on file Drug use: Not on file Sexual activity: Not on file Lifestyle Physical activity: Days per week: Not on file Minutes per session: Not on file Stress: Not on file Relationships Social connections: Talks on phone: Not on file Gets together: Not on file Attends catholic service: Not on file Active member of club or organization: Not on file Attends meetings of clubs or organizations: Not on file Relationship status: Not on file Intimate partner violence: Fear of current or ex partner: Not on file Emotionally abused: Not on file Physically abused: Not on file Forced sexual activity: Not on file Other Topics Concern Not on file Social History Narrative Not on file Immunizations (includes history and patient reported): There is no immunization history on file for this patient. Allergies: Demerol [meperidine] and Codeine Medications: Medications Prior to Admission Medication Sig acyclovir (ZOVIRAX) 200 mg capsule Take 200 [...] as needed. For muscle spasms. Review of Systems: A 14 point review of systems was negative except for: back pain. Physical Exam: Vital Signs: Last Filed In 24 Hours Vital Signs: 24 Hour Range BP: 115/78 (01/07 1300) Temp: 36.4 C (97.5 F) (01/07 1300) Pulse: 64 (01/07 1300) Respirations: 12 PER MINUTE (01/07 1300) SpO2: 99 % (01/07 1300) O2 Delivery: None (Room Air) (01/07 1300) Height: 149.9 cm (59") (01/07 1300) BP: (115)/(78) Temp: [36.4 C (97.5 F)] Pulse: [64] Respirations: [12 PER MINUTE] SpO2: [99 %] O2 Delivery: None (Room Air) General: Alert, cooperative, no acute distress. HEENT: Normocephalic, atraumatic. Neck: Supple. Lungs: Unlabored respirations, bilateral and equal chest excursion. Heart: Regular rate by palpation of pulse. Skin: Warm and dry to touch. Abdomen: Nondistended. Musculoskeletal: Lumbar scar. There is tenderness throughout the thoracic and lumbar spine. There is pain with lumbar extension. There is mild pain with lumbar flexion. No sacroiliac joint tenderness. Neurological: Strength 5/5 in the bilateral lower extremities. Sensation to light touch is is diminished throughout the entire right lower extremity but appears normal on the left. Reflexes are 2+ in bilateral patellar and achilles tendons. Straight leg raise is negative bilaterally. Lab/Radiology/Other Diagnostic Tests: Pertinent labs reviewed Pertinent radiology reviewed. Jimmy Lau MD Pager [phone] documented in this encounter Miscellaneous Notes * Discharge Instructions - Ruth Allen RN - 01/07/2019 4:57 PM CDT Discharge instructions reviewed with patient and patient's . Patient's will be driving her home, and he will be with her through the night. No questions or concerns at this time. All belongings returned. IV removed prior to discharge. * Operative Report (Direct Entry) - Jimmy Lau MD - 01/07/2019 3:42 PM CDT OPERATIVE REPORT Name: Millie Ruelas is a 53 y.o. female : 1965 DATE OF OPERATION: 01/07/2019 Surgeon(s) and Role: * Jimmy Lau MD - Primary Preoperative Diagnosis: Failed back syndrome of lumbar spine [M96.1] Post-op Diagnosis * Failed back syndrome of lumbar spine [M96.1] Procedure(s): NEVRO SPINAL CORD STIMULATOR IMPLANT PERCUTANEOUS IMPLANTATION EPIDURAL NEUROSTIMULATOR ELECTRODE ARRAY Anesthesia Type: MAC Description and Findings of Operative Procedure: After obtaining informed consent, the patient was brought to the operative suite and placed in prone position. Skin was prepped with chlorhexadine, then draped in a sterile fashion. IV cefazolin was given for antibiotic prophylaxis. Sedation was induced per anesthesia. Local anesthetic was infiltrated in the lumbar region. A vertical incision was made at the needle entry sites and dissected to the lumbodorsal fascia. A 14g Tuohy needle was inserted into the T12/L1 interspace using a left paramedian approach guided by AP and lateral fluoroscopic assistance. The epidural space was identified by a loss of resistance technique. An octad spinal cord stimulator lead was inserted through the needle and noted to be in the midline posterior epidural space by fluoroscopy. The lead was then advanced to the top of the T1 vertebral body using live fluoroscopy. Using a similar approach, a second Tuohy needle was inserted at T12/L1 and a second lead was advanced within the epidural space to the top of the T8 vertebral body. The needles were removed and the leads were anchored to the fascia with a Nevro anchoring system and 0 Ethibond. Fluoroscopy revealed no movement of the original lead positions. A horizontal incision was then made in the left posterior flank and dissected down to the fascia. A pocket was bluntly dissected at this site. Both incisions were copiously irrigated with an antibiotic solution and hemostasis was obtained. The leads were tunneled subcutaneously to the pocket site and connected to a [employer] spinal cord stimulator generator. Once adequate electrical contact was confirmed by the device rental representative, the generator was placed in the pocket. The incisions were closed in a staged manner using 2- 0 Vicryl and jose. Dressings were applied. The patient was awakened and transported to PACU in stable condition. She will discharge home and follow up in 1 week. Estimated Blood Loss: 10 ml Specimen(s) Removed/Disposition: * No specimens in log * Attestation: I performed this procedure without the involvement of a resident. Jimmy Lau MD Pager [phone] documented in this encounter Plan of Treatment Not on filedocumented as of this encounter Procedures Comments Procedure Name Priority Date/Time Associated Diagnosis FLUORO MOBILE IN OR Routine 01/07/2019 3:11 PM CDT PERCUTANEOUS IMPLANTATION 01/07/2019 Failed back syndrome of EPIDURAL NEUROSTIMULATOR 1:59 PM CDT lumbar spine ELECTRODE ARRAY INSERTION/ REPLACEMENT 01/07/2019 Failed back syndrome of SPINAL NEUROSTIMULATOR 1:59 PM CDT lumbar spine PULSE GENERATOR/ BAR TURNER BASIC METABOLIC PANEL STAT 01/07/2019 1:45 PM CDT documented in this encounter Results * FLUORO MOBILE IN OR (01/07/2019 3:11 PM CDT) Narrative Performed At This order has been auto finalized and does not contain a result. HECTORBHARGAVI PAULA Performing Organization Address City/State/Zipcode Phone Number MIRNA PAULA * BASIC METABOLIC PANEL (01/07/2019 1:45 PM CDT) Sodium 139 137 - 147 MMOL/L [facility] Potassium 4.0Comment: SLT HEMOLYSIS 3.5 - 5.1 MMOL/L [facility] Chloride 105 98 - 110 MMOL/L [facility] CO2 26 21 - 30 MMOL/L [facility] Anion Gap 8 3 - 12 [facility] Glucose 90 70 - 100 MG/DL [facility] Blood Urea 20 7 - 25 MG/DL [facility] Nitrogen Creatinine 0.73 0.4 - 1.00 MG/DL [facility] Calcium 9.4 8.5 - 10.6 MG/DL [facility] eGFR Non >60 >60 mL/min [facility] Comment: [place] The eGFR is not validated for use in drug dosing adjustments.Continue to use estimated creatinine clearance per dosing reference text.Please contact the Clinical Pharmacist for questions. eGFR >60 >60 mL/min [facility] [place] Comment: The eGFR is not validated for use in drug dosing adjustments.Continue to use estimated creatinine clearance per dosing reference text.Please contact the Clinical Pharmacist for questions. Specimen Blood Performing Organization Address City/State/Zipcode Phone Number [facility] [address] [place] [address] documented in this encounter Visit Diagnoses Diagnosis Failed back syndrome, lumbar - Primary Postlaminectomy syndrome, lumbar region Chronic bilateral thoracic back pain documented in this encounter Administered Medications Action Date Dose Rate Site Medication Order MAR Action 01/07/2019 4:31 PM CDT 25 mcg fentaNYL citrate PF (SUBLIMAZE) Given injection 25 mcg 25 mcg, Intravenous, EVERY 5 MIN PRN, Starting Thu01/07/19 at 1457, Until Thu01/07/19 at 1902, Pain Injectable, For Pain Score < 4, Maximum total dose of 200 mcg Hold for RR < 10, PACU (only) 25 mcg Given 01/07/2019 4:12 PM CDT 25 mcg Given 01/07/2019 4:04 PM CDT haloperidol (HALDOL) injection 1 mg 1 mg, Intravenous, ONCE PRN, 1 dose, Starting Thu01/07/19 at 1457, Until Thu01/07/19 at 1902, Other..., Nausea and Vomiting, Second line agent, give if first line agent ineffective. DO NOT ADMINISTER if given intraoperatively., PACU (only) 01/07/2019 1:34 PM CDT 1,000 mL 20 mL/hr lactated ringers infusion Given - New 1,000 mL, 1,000 mL, Intravenous, at 20 Bag mL/hr, ONCE, 1 dose, Thu01/07/19 at 1300, Pre-Op 01/07/2019 1:34 PM CDT 2 mL lidocaine PF 1% (10 mg/mL) injection Given 0.1-2 mL 0.1-2 mL, Injection, NEEDED, Starting Thu01/07/19 at 1354, Until Thu01/07/19 at 1902, Other..., for IV insertion, Pre-Op 01/07/2019 3:56 PM CDT 10 mg oxyCODONE (ROXICODONE, OXY-IR) tablet Given 5-10 mg 5-10 mg, Oral, ONCE PRN, 1 dose, Starting Thu01/07/19 at 1457, Until Thu01/07/19 at 1556, Pain PO, For Pain Score <4, PACU (only) documented in this encounter
--- OUTSIDE RECORDS SUMMARY | 2019-01-10 20:30 | XMS REPORT | Encounter Summary ---
Author Author [facility] Organization [facility] Address Unknown Phone Unavailable Care Team Providers Care Slab Depiler Operator Name Role Phone RosasLuke sanz SLAG MOTOR OPERATOR PCP Reason for Visit * Auth/Cert Referred By Contact Referred To Contact Status Reason Specialty Diagnoses / Procedures Diagnoses Failed back syndrome of lumbar spine Failed back syndrome of lumbar spine [M96.1] P rocedures TN INSJ/RPLCMT SPI NPGR DIR/INDUXIVE COUPLING TN PRQ IMPLTJ NSTIM ELECTRODE ARRAY EPIDURAL TN PRQ IMPLTJ NSTIM ELECTRODE ARRAY EPIDURAL TN INSJ/RPLCMT SPI NPGR DIR/INDUXIVE COUPLING TN ELEC EMA IMPLT NPGT CPLX SP/PN PRGRMG TN IMPLT NEUROSTIM ELCTR EACH NEVRO SPINAL CORD STIMULATOR IMPLANT PERCUTANEOUS IMPLANTATION EPIDURAL NEUROSTIMULATOR ELECTRODE ARRAY Encounter Details Care Team Description Date Type Department Jimmy Lau MD [address] [place] [address] NEVRO SPINAL CORD STIMULATOR IMPLANT 01/07/2019 Surgery [facility] [place] [address] [address] Social History Date Tobacco Use Types Packs/Day [...] interact with your prescription medicines or other efos-yfs-qcqmcaj (OTC) medicines. Some prescription medicines have acetaminophen [...] of taking these medicines. Date Last Reviewed: 07/31/201619990061-6042 [employer]. [address] [place] [address], [place] [address]. All rights reserved. This information is not [...] file Gets together: Not on file Attends baptism service: Not on file Active member of [...] Pertinent radiology reviewed. Jimmy Lau MD Pager [phone] documented in this encounter Miscellaneous Notes * [...] the pocket site and connected to a [employer] Sen[employer] spinal cord stimulator generator. Once adequate electrical contact was confirmed by the device sales representative [employer], the generator was placed in the pocket. [...] of a resident. Jimmy Lau MD Pager [phone] documented in this encounter Plan of Treatment Not on filedocumented as of this encounter Procedures Comments Procedure Name Priority Date/Time Associated Diagnosis FLUORO MOBILE IN OR Routine 01/07/2019 3:11 PM CDT PERCUTANEOUS IMPLANTATION 01/07/2019 Failed back syndrome of EPIDURAL NEUROSTIMULATOR 1:59 PM CDT lumbar spine ELECTRODE ARRAY INSERTION/ REPLACEMENT 01/07/2019 Failed back syndrome of SPINAL NEUROSTIMULATOR 1:59 PM CDT lumbar spine PULSE GENERATOR/ GREY TENDER BASIC METABOLIC PANEL STAT 01/07/2019 1:45 PM CDT documented in this encounter Results * FLUORO MOBILE IN OR (01/07/2019 3:11 PM CDT) Narrative Performed At This order has been auto finalized and does not contain a result. HECTORBHARGAIV PAULA Performing Organization Address City/State/Zipcode Phone Number [...] >60 >60 mL/min [facility] Comment: [place] The eGFR is not validated for use in drug dosing adjustments.Continue to use estimated creatinine clearance per dosing reference text.Please contact the Clinical Pharmacist for questions. eGFR >60 >60 mL/min [facility] [place] Comment: The eGFR is not validated for use in drug dosing adjustments.Continue to use estimated creatinine clearance per dosing reference text.Please contact the Clinical Pharmacist for questions. Specimen Blood Performing Organization Address City/State/Zipcode Phone Number [facility] [address] [place] [address] documented in this encounter Visit Diagnoses Diagnosis Failed back syndrome of lumbar spine Postlaminectomy syndrome, lumbar region documented in this encounter Administered Medications Action Date Dose Rate Site Medication Order MAR Action 01/07/2019 3:28 PM CDT 10 mL bupivacaine (MARCAINE) 0.5 % injection Given INTRA-PROCEDURE MED, Starting Thu01/07/19 at 1528, Until Thu01/07/19 at 1545, Intra-op 01/07/2019 4:31 PM CDT 25 mcg fentaNYL [...] 1 dose, Thu01/07/19 at 1300, Pre-Op 01/07/2019 3:28 PM CDT 10 mL lidocaine 1%/EPINEPHrine 1:100,000 Given injection INTRA-PROCEDURE MED, Starting Thu01/07/19 at 1528, Until Thu01/07/19 at 1545, Intra-op 01/07/2019 1:34 PM CDT 2 mL lidocaine PF 1% (10 mg/mL) injection Given 0.1-2 mL 0.1-2 mL, Injection, NEEDED, Starting Thu01/07/19 at 1354, Until Thu01/07/19 at 1902, Other..., for IV insertion, Pre-Op 01/07/2019 2:54 PM CDT 1,000 mL ortho irrigation 1 L bottle Given 1,000 mL, INTRA-PROCEDURE MED, Starting Thu01/07/19 at 1454, Until Thu01/07/19 at 1545, Intra-op 01/07/2019 3:56 PM CDT 10 mg oxyCODONE (ROXICODONE, OXY-IR) tablet Given 5-10 mg 5-10 mg, Oral, ONCE PRN, 1 dose, Starting Thu01/07/19 at 1457, Until Thu01/07/19 at 1556, Pain PO, For Pain Score <4, PACU (only) documented in this encounter
--- OUTSIDE RECORDS SUMMARY | 2019-01-10 20:30 | XMS REPORT | Encounter Summary ---
Author [facility] Address Unknown Phone Unavailable Care Team Providers Care Endocrinology Nurse Name Role Phone RosasLuke sanz HOLLI PCP Reason for Visit * Reason Comments Medication Question Encounter Details Care Team Description Date Type Department Jimmy Lau MD 4000 [facility] [place], [place] [id number] Medication Question 01/07/2019 Telephone [facility] [address] [address] Social History Date Tobacco Use [...] impairment: No documented as of this encounter Plan of Treatment Not on filedocumented as of this encounter Visit Diagnoses Not on filedocumented in this encounter
--- OUTSIDE RECORDS SUMMARY | 2019-01-10 20:31 | XMS REPORT | Encounter Summary ---
Author Author [facility] Organization [facility] Address Unknown Phone Unavailable Care Team Providers Care Sustainable Products Marketing Manager Name Role Phone India Pearce MD PCP Unavailable Reason for Visit * Reason Comments General Question Encounter Details Care Team Description Date Type Department Anshu Lyon MD 4000 [place] [address] General Question 12/16/2018 Telephone [facility] [address] [address] Social History Date Tobacco Use Types Packs/Day [...] encounter Miscellaneous Notes * Telephone Encounter - Angelika Stacy RN - 12/16/2018 3:32 PM CDT Patient called asking if it was okay it she could ride a bike. Informed patient it would be okay, but make sure the bike is properly fitted so she uses proper body mechanics. Patient also asked if it was okay if she rides on the roller coasters at [employer]. RN encouraged patient to not ride any roller coasters. documented in this encounter Plan of Treatment Not on filedocumented as of this encounter Visit Diagnoses Not on filedocumented in this encounter
--- OUTSIDE RECORDS SUMMARY | 2019-01-10 20:31 | XMS REPORT | Encounter Summary ---
Author Author [facility] Organization [facility] Address Unknown Phone Unavailable Care Team Providers Care Desolderer Name Role Phone India Pearce MD PCP Unavailable Encounter Details Care Team Description Date Type Department Lorena Cotton, HOLLI 4000 [facility] Williams Yun MD [facility] [place] [address] Encounter for other preprocedural examination 12/10/2018 Hospital [facility] En[facility] [address] [address] Social History Date Tobacco Use Types Packs/Day [...] impairment: No documented as of this encounter Medications at Time of Discharge [...] capsule capsules by mouth three times daily. metoprolol XL (TOPROL XL) Take 50 mg [...] muscle spasms. documented as of this encounter Plan of Treatment Not on filedocumented as of this encounter Procedures Comments Procedure Name Priority Date/Time Associated Diagnosis MRSA SCREEN Routine 12/10/2018 Preop testing 9:30 AM CDT documented in this encounter Results * MRSA SCREEN (12/10/2018 9:30 AM CDT) Battery Name MRSA SCREEN [facility] Specimen NASAL MAIN LAB Description Special NONE [facility] Requests Culture NO MRSA ISOLATED [facility] Report Status FINAL [facility] 12/12/2018 Specimen Nasal Performing Organization Address City/State/Zipcode Phone Number MAIN LAB [address] [place] [address] documented in this encounter Visit Diagnoses Diagnosis Preop testing Preoperative examination, unspecified documented in this encounter
--- OUTSIDE RECORDS SUMMARY | 2019-01-10 20:31 | XMS REPORT | Encounter Summary ---
Author Author [facility] Organization [facility] Address Unknown Phone Unavailable Care Team Providers Care Leather Tacker Name Role Phone India Pearce MD PCP Unavailable Reason for Referral * Pain Authorization (Routine) Referred By Contact Referred To Contact Status Reason Specialty Diagnoses / Procedures Lorena Cotton APRN 4000 Carlitos Munroe MD [facility] [place] [address] Bhg Spn Anes Pain Cl [address] [address] No Auth Needed Anesthesia Pain Diagnoses Failed back syndrome of lumbar spine Lumbar radiculopathy Lumbar spondylosis P rocedures SPINAL CORD STIMULATOR IMPLANT Reason for Visit * Reason Comments Wound Check lead pull Pain * Pain Authorization (Routine) Referred By Contact Referred To Contact Status Reason Specialty Diagnoses / Procedures Jimmy Lau MD 4000 [facility] Williams Yun [facility] [place] [address] Bhg Spn Anes Pain Cl [address] [address] No Auth Needed Anesthesia Pain Diagnoses Failed back syndrome of lumbar spine Lumbar radiculopathy P rocedures [facility] AMB SPINE ELECT ANAL PRGM NEUROSTIM Encounter Details Care Team Description Date Type Department Lorena Cotton APRN 4000 Carlitos Munroe MD [facility] [place] [address] [phone] Failed back syndrome of lumbar spine (Primary Dx); Lumbar radiculopathy; Spinal cord stimulator status; Preop testing; Lumbar spondylosis 12/10/2018 Office Visit [facility] [address] [address] Social History Date Tobacco Use Types Packs/Day Years Used Never Smoker Smokeless Tobacco: Never Used Sex Assigned at Date Recorded Not on file Industry Job Start Date Occupation Not on file Not on file Not on file Travel End Travel History Travel Start No recent travel history available. documented as of this encounter Last Filed Vital Signs Time Taken Vital Sign Reading 12/10/2018 8:27 AM CDT Blood Pressure 122/85 12/10/2018 8:27 AM CDT Pulse 70 - Temperature - - Respiratory Rate - - Oxygen Saturation - - Inhaled Oxygen - Concentration 12/10/2018 8:27 AM CDT Weight 59 kg (130 lb) 12/10/2018 8:27 AM CDT Height 152.4 cm (5') 12/10/2018 8:27 AM CDT Body Mass Index 25.39 documented in this encounter Functional Status Date [...] impairment: No documented as of this encounter Progress Notes * Lornea Cotton APRN - 12/10/2018 8:30 AM CDT SPINE [facility]ENTER CLINIC NOTE Subjective SUBJECTIVE: Following up after SCS trial Animal Treatment Investigator: Nevro High Frequency (HF-10) Duration of trial: 7 days Location of pain: mid back and low back/buttock pain Improvement in pain: 95% Improvement in function: Yes Reduction of pain medication: Yes Side effects/complications: none Patient comments: Patient reports 100% relief of mid back pain, yet she has had slight pain in middle of low back which would radiate to bilateral buttock region. Patient states she had moderate soreness around puncture site for POS 0. Patient states she previously taking Tylenol several times a day, she reports taking Tylenol once for site pain. Denies recent fevers, chills, site drainage or warmth. Nicotine use: No Hemoglobin A1C (if applicable): None - no hx of DM History of surgical infections: No - yet difficult healing related to use of dissolvable sutures Review of Systems Constitutional: Negative. HENT: Negative. Eyes: Negative. Respiratory: Negative. Cardiovascular: Negative. Gastrointestinal: Negative. Endocrine: Negative. Genitourinary: Negative. Musculoskeletal: Negative. Skin: Negative. Allergic/Immunologic: Negative. Neurological: Negative. Hematological: Negative. Psychiatric/Behavioral: Negative. Current Outpatient Medications: acyclovir (ZOVIRAX) 200 mg capsule, Take 200 mg by mouth twice daily., Disp : , Rfl: ALPRAZolam (XANAX) 1 mg tablet, Take 1 mg by mouth at bedtime as needed for Anxiety., Disp: , Rfl: ASPIRIN PO, Take 81 mg by mouth., Disp: , Rfl: diltiazem CD (CARTIA XT) 120 mg capsule, Take 150 mg by mouth daily., Disp : , Rfl: duloxetine DR (CYMBALTA) 30 mg capsule, Take two capsules by mouth daily. 30mg 1 by mouth daily x 1 week, then 2 by mouth daily., Disp: 60 capsule, Rfl: 5 furosemide (LASIX) 40 mg tablet, Take 40 mg by mouth every morning., Disp: , Rfl: gabapentin (NEURONTIN) 300 mg capsule, Take two capsules by mouth three times daily., Disp: 180 capsule, Rfl: 3 metoprolol XL (TOPROL XL) 50 mg extended release tablet, Take 50 mg by mouth twice daily., Disp: , Rfl: pregabalin (LYRICA) 150 mg capsule, Take one capsule by mouth three times daily., Disp: 90 capsule, Rfl: 5 tamsulosin HCl (TAMSULOSIN PO), Take 30 mg by mouth., Disp: , Rfl: tiZANidine (ZANAFLEX) 4 mg tablet, Take one tablet by mouth three times daily as needed. For muscle spasms., Disp: 90 tablet, Rfl: 1 Allergies Allergen Reactions Demerol [Meperidine] ANAPHYLAXIS Codeine HIVES Physical Exam General: Alert, oriented, no acute distress Resp: Non labored breathing Skin: lead insertion site CDI, leads x 2 pulled without difficulty and contacts intact Vitals: 12/10/18 0827 BP: 122/85 Pulse: 70 Weight: 59 kg (130 lb) Height: 152.4 cm (60") Pain Score: Zero Body mass index is 25.39 kg/m. IMPRESSION: 1. Failed back syndrome of lumbar spine 2. Lumbar radiculopathy 3. Spinal cord stimulator status PLAN: X rays at end of trial with lead position at T1 and T9 vertebral bodies. Patient desires permanent implant: Yes 1. Dressing removed, leads pulled, area cleansed with chloroprep. Bandage applied over site. 2. Instructed pt ok to shower if no oozing or redness at site after 2 hours. Instructed to call if any sx of infection including fevers, swelling, drainage, increased pain, inflammation or warmth to site. 3. MRSA swab obtained, no hx of DM. 4. Follow-up as needed. documented in this encounter Plan of Treatment Order Schedule Name Priority Associated Diagnoses Ordered: 12/10/2018 SPINAL CORD STIMULATOR IMPLANT Routine Failed back syndrome of lumbar spine Lumbar radiculopathy Lumbar spondylosis documented as of this encounter Results * MRSA SCREEN (12/10/2018 9:30 AM CDT) Battery Name MRSA SCREEN MAIN LAB Specimen NASAL MAIN LAB Description Special NONE MAIN LAB Requests Culture NO MRSA ISOLATED [facility] Report Status FINAL MAIN LAB 12/12/2018 Specimen Nasal Performing Organization Address City/State/Zipcode Phone Number MAIN LAB [address] [place] [address] * T SPINE AP & LAT 2 [...] AM. Performing Organization Address City/State/Zipcode Phone Number [facility] RESULTS * L SPINE AP & LATERAL [...] Address City/State/Zipcode Phone Number [facility] RAD RESULTS documented in this encounter Visit Diagnoses Diagnosis Failed back syndrome of lumbar spine - Primary Postlaminectomy syndrome, lumbar region Lumbar radiculopathy Thoracic or lumbosacral neuritis or radiculitis, unspecified Spinal cord stimulator status Other postprocedural status Preop testing Preoperative examination, unspecified Lumbar spondylosis Lumbosacral spondylosis without myelopathy documented in this encounter
--- OUTSIDE RECORDS SUMMARY | 2019-01-10 20:31 | XMS REPORT | Encounter Summary ---
Author Author [facility] Organization [facility] Address Unknown Phone Unavailable Care Team Providers Care Special Systems Technician Name Role Phone India Pearce MD PCP Unavailable Reason for Visit * Reason Comments Care Coordination Encounter Details Care Team Description Date Type Department Jimmy Lau MD 4000 [place], [place] [id number] Care Coordination 12/29/[address] [facility] [address] [id number] Social History Date Tobacco Use Types Packs/Day [...] Telephone Encounter - Carlos Kruger RN - 12/29/2018 9:14 AM CDT Pt called reporting she just saw her math professor and they were asking if pt needed cardiac clearance. They already provided cardiac clearance for the trial. Pt is being treated for Stage 2 diastolic dysfunction and CHF. Advised pt that the clearance provided prior to trial should be all Dr. Lau needs. documented in this encounter Plan of Treatment Not on filedocumented as of this encounter Visit Diagnoses Not on filedocumented in this encounter
--- OUTSIDE RECORDS SUMMARY | 2019-01-10 20:31 | XMS REPORT | Encounter Summary ---
Author Author [facility] Organization [facility] Address Unknown Phone Unavailable Care Team Providers Care Sole Painter Name Role Phone India Pearce MD PCP Unavailable Encounter Details Care Team Description Date Type Department Lorena Cotton APRN 4000 [facility] Williams Yun MD [facility] [place] [address] 12/10/2018 Hospital [facility] [address] [address] Social History Date Tobacco Use [...] Comments Procedure Name Priority Date/Time Associated Diagnosis L SPINE AP & LATERAL Routine 12/10/2018 Failed back syndrome of 8:57 AM CDT lumbar spine Lumbar radiculopathy Spinal cord stimulator status documented in this encounter Results * L SPINE AP & LATERAL (12/10/2018 [...] of lumbar spine Postlaminectomy syndrome, lumbar region Lumbar radiculopathy Thoracic or lumbosacral neuritis or radiculitis, unspecified Spinal cord stimulator status Other postprocedural status documented in this encounter
--- OUTSIDE RECORDS SUMMARY | 2019-01-10 20:31 | XMS REPORT | Encounter Summary ---
Author Author [facility] Organization [facility] Address Unknown Phone Unavailable Care Team Providers Care Button Station Worker Name Role Phone India Pearce MD PCP Unavailable Luke Rosas APRN PCP Encounter Details Care Team Description Date Type Department Jimmy Lau MD 4000 [facility] Spine [place], [place] [phone] 12/14/2018 Prep for Case [facility] [address] [id number] Social History Date Tobacco Use Types Packs/Day [...]
--- OUTSIDE RECORDS SUMMARY | 2019-01-10 20:31 | XMS REPORT | Encounter Summary ---
Author Author [facility] Organization [facility] Address Unknown Phone Unavailable Care Team Providers Care Oil And Gas Recruiter Name Role Phone India Pearce MD PCP Unavailable Reason for Visit * Reason Comments Records Request Encounter Details Care Team Description Date Type Department Anika Rosario Records Request 01/03/2019 Telephone The [address] [address] Social History Date Tobacco Use [...] encounter Miscellaneous Notes * Telephone Encounter - Anika Rosario - 01/03/2019 2:31 PM CDT 01/03/19 - Records have been requested per staff message below. libertad ----- Message from Adrienne Butler sent at 01/03/2019 1:33 PM CDT ----- Regarding: Med Rec Req Good Afternoon, Please request records from Dutch Alonso MD - / Fax - . Patient is scheduled to see Dr. Severino at on 02/21/19. Thank you. documented in this encounter Plan of Treatment Not on filedocumented as of this encounter Visit Diagnoses Not on filedocumented in this encounter
--- OUTSIDE RECORDS SUMMARY | 2019-01-10 20:31 | XMS REPORT | Encounter Summary ---
Author Author [facility] Organization [facility] Address Unknown Phone Unavailable Care Team Providers Care Supervisory Cbp Officer Name Role Phone India Pearce MD PCP Unavailable Encounter Details Care Team Description Date Type Department Jimmy Lau MD 4000 [place] [address] 12/03/2018 Hospital [facility] [address] [address] Social History Date Tobacco Use Types Packs/Day [...] Associated Diagnosis FLUORO MOBILE IN OR Routine 12/03/2018 Thoracic radiculopathy 2:08 PM CDT documented in this encounter Results * FLUORO MOBILE IN OR (12/03/2018 2:08 PM CDT) Narrative Performed At This order has been auto finalized and does not contain a result. MIRNA PAULA Performing Organization Address City/State/Zipcode Phone Number MIRNA NISA documented in this encounter Visit Diagnoses Diagnosis Thoracic radiculopathy Thoracic or lumbosacral neuritis or radiculitis, unspecified documented in this encounter
--- OUTSIDE RECORDS SUMMARY | 2019-01-10 20:31 | XMS REPORT | Encounter Summary ---
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 easy to understand Associations: Intact Thought Content: Neg for delusions, phobias, and preoccupations. Perception: Neg for AH, VH. Insight/Judgement: fair/fair Orientation: Alert/ oriented x 3 Recent and Remote Memory: Grossly intact Attention span and concentration: Intact Language: Unremarkable Fund of knowledge and vocabulary: Good Suicidal Ideation: Denied IMPRESSIONS: Millie Ruelas is a 53 y.o. female presenting with chronic pain and current comorbid health problems. She denied lifetime substance abuse. She also endorsed current symptoms of anxiety and depression with a history of PTSD. She currently takes Xanax and Cymbalta for symptom management. She reported having a good support system. Patient demonstrated a realistic outlook regarding procedure and expected pain reduction. Furthermore, she has a good understanding of the risks and benefits of the procedure. Given this information, the patient appears to be a GOOD candidate for surgery. Diagnostic Impression: PTSD Medical Diagnosis: 1. Failed back syndrome of lumbar spine 2. Lumbar radiculopathy Plan/Recommendations: 1. Encourage patient to review educational materials provided by [facility] and the following website: [email or web address] 2. Referral to [facility]'s primary care to establish medical care with a primary care physician. The proposed treatment plan was discussed with the patient/guardian who was provided the opportunity to ask questions and make suggestions regarding alternative treatment. Thank you for the opportunity to be involved with this patients care. Alyssa Smith, PhD Licensed Psychologist Director of Psycho Diagnostic Evaluations for Medical Interventions [facility] 1385 TOTAL TIME BY Alyssa Smith, PhD: 120 minutes, 105 minutes related to assessment Billing Minutes Units CPT 61277 0 0 CPT 08577 0 0 CPT 11445 60 1 CPT 45502 45 1 CPT 60272 0 0 CPT 86975 0 0 CPT 86856 0 0 CPT 81338 0 0 CPT 69059 0 0 CPT 79297 0 0 documented in this encounter Miscellaneous Notes * Addendum Note - Alyssa Smith, PhD - 11/05/2018 10:00 AM STRAIGHTENER HAND Addended by: ALYSSA SMITH on: 12/05/2018 02:03 PM Modules accepted: Level of Service * Addendum Note - Odette Woody - 11/05/2018 10:00 AM STRAIGHTENER HAND Addended by: ODETTE WOODY on: 11/23/2018 10:49 AM Modules accepted: Orders documented in this encounter Plan of Treatment Order Schedule Name Priority Associated Diagnoses Ordered: 11/23/2018 AMB REFERRAL TO INTERNAL MEDICINE Routine Encounter for counseling for care management of patient with chronic conditions and complex health needs using nurse-based model documented as of this encounter Visit Diagnoses Diagnosis PTSD (post-traumatic stress disorder) - Primary Posttraumatic stress disorder Encounter for counseling for care management of patient with chronic conditions and complex health needs using nurse-based model documented in this encounter
--- OUTSIDE RECORDS SUMMARY | 2019-01-10 20:31 | XMS REPORT | Encounter Summary ---
Author Author [facility] Organization [facility] Address Unknown Phone Unavailable Care Team Providers Care Contact Worker Name Role Phone India Pearce MD PCP Unavailable Luke Rosas APRN PCP Encounter Details Care Team Description Date Type Department Jimmy Lau MD [address] [place], [place] [id number] Failed back syndrome of lumbar spine (Primary Dx) 12/13/2018 Prep for Case [facility] [address] [address] Social History Date Tobacco Use Types Packs/Day [...] filedocumented as of this encounter Visit Diagnoses Diagnosis Failed back syndrome of lumbar spine - Primary Postlaminectomy syndrome, lumbar region documented in this encounter
--- OUTSIDE RECORDS SUMMARY | 2019-01-10 20:31 | XMS REPORT | Encounter Summary ---
Author Author [facility] Organization [facility] Address Unknown Phone Unavailable Care Team Providers Care Nursing Agency Manager Name Role Phone India Pearce MD PCP Unavailable Encounter Details Care Team Description Date Type Department Lorena Cotton APRN 4000 [facility] Williams Yun MD [facility] [place] [address] 12/10/2018 Hospital [facility] Encounter Health System [address] [address] Social History Date Tobacco Use [...] Comments Procedure Name Priority Date/Time Associated Diagnosis T SPINE AP & LAT 2 VIEWS Routine 12/10/2018 Failed back syndrome of 8:58 AM CDT lumbar spine Lumbar radiculopathy Spinal cord stimulator status documented in this encounter Results * T SPINE AP & LAT 2 [...]
--- OUTSIDE RECORDS SUMMARY | 2019-01-10 20:31 | XMS REPORT | Encounter Summary ---
Author Author [facility] Organization [facility] Address Unknown Phone Unavailable Care Team Providers Care Ventilation Worker Name Role Phone India Pearce MD PCP Unavailable Reason for Referral * Consult, Test & Treat (Routine) Referred By Contact Referred To Contact Status Reason Specialty Diagnoses / Procedures Luke Rosas, TOOL MACHINE SHOP SUPERVISOR [address] [place] [address] [facility] [address] [address] Closed Specialty Services Cardiology Diagnoses Required Diastolic congestive heart failure, unspecified HF chronicity (HCC) Essential hypertension Encounter Details Care Team Description Date Type Department Adrienne Butler Diastolic congestive heart failure, unspecified HF chronicity (HCC) (Primary Dx); Essential hypertension 01/03/2019 Orders Only CVM REFERRAL Social History Date Tobacco Use Types Packs/Day [...] as of this encounter Plan of Treatment Order Schedule Name Priority Associated Diagnoses Ordered: 01/03/2019 AMB REFERRAL TO ADULT CARDIOLOGY Routine Diastolic congestive heart failure, unspecified HF chronicity (HCC) Essential hypertension documented as of this encounter Visit Diagnoses Diagnosis Diastolic congestive heart failure, unspecified HF chronicity (HCC) - Primary Essential hypertension Unspecified essential hypertension documented in this encounter
--- OUTSIDE RECORDS SUMMARY | 2019-01-10 20:32 | XMS REPORT ---
Author Author Migration, Doctor Organization [facility] Address Unknown Phone Unavailable Care Team Providers Care Sports Psychologist Name Role Phone Migration, Doctor Unavailable Unavailable PROBLEMS Type Condition ICD9-CM Code [id number] Code Onset Dates Condition Status SNOMED Code Problem Anxiety F41.9 Active 82994209 Problem Lumbar disc disease M51.9 Active 983274898 Problem Urinary retention R33.9 Active 790924168 Problem Nausea R11.0 Active 848286790 Problem Essential hypertension I10 Active 90533082 Problem IBS (irritable bowel syndrome) K58.9 Active 61158655 Problem Scoliosis of lumbar spine, unspecified scoliosis type M41.9 Active 094986274 Problem Diastolic congestive heart failure, unspecified HF chronicity I50.30 Active 010452970 Problem Angina pectoris I20.9 Active 524372958 Problem Sciatic nerve pain, left M54.32 Active 72885754 Problem Sciatic nerve pain, right M54.31 Active 64394128 ALLERGIES No Information ENCOUNTERS Encounter Location Date Diagnosis [address] [address] Nov, Anxiety F41.[address] [address] Nov, [address] [address] Nov, Skin nodule R22.9 and Anxiety F41.[address] [address] Nov, [address] [address] Nov, Skin nodule R22.9 ; Anxiety F41.9 and Chronic prescription benzodiazepine use Z79.[address] [address] Oct, Anxiety F41.[address] [address] Oct, [address] [address] Oct, Anxiety F41.[address] [address] Oct, [facility] [address] [address] Oct, [facility] [id number] [place] [address] Oct, IBS (irritable bowel syndrome) K58.[address] [address] Oct, IBS (irritable bowel syndrome) K58.[address] [address] Oct, Nausea R11.[address] [address] Oct, [place] [address], [place] [address] Oct, Anxiety F41.[address] [address] Oct, General medical examination Z00.00 ; Diastolic congestive heart failure, unspecified HF chronicity I50.30 ; Angina pectoris I20.9 ; Sciatic nerve pain, right M54.31 ; Sciatic nerve pain, left M54.32 ; Scoliosis of lumbar spine, unspecified scoliosis type M41.9 ; Anxiety F41.9 ; Urinary retention R33.9 and Essential hypertension I10 [facility] [address] [place] [address] Oct, Sciatic nerve pain, right M54.31 and Sciatic nerve pain, left M54.32 [facility] [address] [facility] [id number] [address] Mar, Lumbar disc disease M51.9 [facility] [address], [place] [address] Feb, [facility] [address], [place] [address] Feb, [place] [address] [id number] [address] Feb, [facility] [id number] [place] [address] December, Essential hypertension I10 ; Lumbar disc disease M51.9 ; Chest pain, unspecified type R07.9 ; Anxiety F41.9 and Scoliosis of lumbar spine , unspecified scoliosis type M41.9 [facility] [id number] [place] [address] May, [facility] [id number] [place] [address] Jan, Other acute gastritis with hemorrhage K29.01 and Essential hypertension I10 [facility] [id number] [place] [address] Jan, [facility] [id number] [place] [address] Jul, [facility] [id number] [place] [address] Jul, [facility] [id number] [place] [address] Jul, [facility] [address] Feb, [facility] [address], [place] [address] December, [facility] [id number] [address] December, [facility] [id number] [place] [address] December, [facility] [address] [address] Nov, [facility] [address] [place] [address] Nov, [facility] [place] [facility] [address] [id number] [place] [address] Oct, [facility] [place] [facility] [address] [id number] [place] [address] Oct, [facility] [place] [facility] [address] [id number] [place] [address] Jul, [facility] [place] [facility] [address] [id number] [place] [address] Jul, [facility] [place] [facility] [address] [id number] [place] [address] Jul, [facility] [place] [facility] [address] [id number] [place] [address] Jul, [facility] [place] [facility] [address] [id number] [place] [address] Jul, [facility] [place] [facility] [address] [id number] [place] [address] Jul, [facility] [place] [facility] [address] [id number] [place] [address] Jul, [facility] [place] [facility] [address] [id number] [place] [address] Jul, [facility] [place] [facility] [address] [id number] [place] [address] Jul, [facility] [place] [facility] [address] [id number], [place] [address] Jul, [facility] [place] [facility] [address] [id number] [place] [address] Jul, [facility] [place] [facility] [address] [id number] [place] [address] Jul, [facility] [place] [facility] [address] [id number] [place] [address] Jul, [facility] [place] [facility] [address] [id number], [place] [address] Jul, [facility] [place] [facility] [address] [id number] [place] [address] 20 May, 2014 [facility] [place] [facility] [address] [id number] [place] [address] 20 May, 2014 [facility] [place] [facility] [address] [id number] [place] [address] 20 May, 2014 [facility] [place] [facility] [address] [id number] [place] [address] 20 May, 2014 [facility] [place] [facility] [address] [id number] [place] [address] 16 May, 2014 [facility] [place] [facility] [address] [id number] [place] [address] 16 May, 2013 [facility] [place] [facility] [address] [id number] [place] [address] 16 May, 2014 [facility] [place] [facility] [address] [id number] [place] [address] 16 May, 2014 [facility] [place] [facility] [address] [id number] [place] [address] 15 May, 2014 [facility] [place] [facility] [address] [id number] [place] [address] 15 May, 2014 [facility] [place] [facility] [address] [id number], [place] [address] 13 May, 2014 [facility] [place] [facility] [address] [id number], [place] [address] 13 May, 2014 [facility] [place] [facility] [address] [id number] [place] [address] 24 May, 2014 [facility] [place] [facility] [address] [id number] [place] [address] 24 May, 2013 [facility] [place] [facility] [address] [id number] [place] [address] 11 May, 2014 [facility] [place] [facility] [address] [id number] [place] [address] 10 May, 2014 [facility] [place] [facility] [address] [id number] [place] [address] 10 May, 2014 [facility] [place] [facility] [address] [id number] [place] [address] Jan, [facility] [place] [facility] [address] [id number] [place] [address] Jan, [facility] [place] [facility] [address] [id number] [place] [address] Jan, [facility] [place] [facility] [address] [id number] [place] [address] Jan, [facility] [place] [facility] [address] [id number] [place] [address] Jan, [facility] [place] [facility] [address] [id number] [place] [address] Jan, [facility] [place] [facility] [address] [id number] [place] [address] Jan, [facility] [place] [facility] [address] [id number] [place] [address] December, [facility] [place] [facility] [address] [id number] [place] [address] December, [facility] [place] [facility] [address] [id number] [place] [address] December, [facility] [place] [facility] [address] [id number] [place] [address]- [address] December, [facility] [place] [facility] [address] [id number] [place] [address] Nov, [facility] [place] [facility] [address] [id number] [place] [address] Nov, [facility] [place] [facility] [address] [id number] [place] [address] Jul, [facility] [address] [id number] [place] [address] Jul, [facility] [place] [facility] [address] [id number] [place] [address] Jul, [facility] [place] [facility] [address] [id number] [place] [address] Jul, [facility] [place] [facility] [address] [id number] [place] [address]- [address] May, [facility] [place] [facility] [address] [id number] [place] [address] Mar, [facility] [place] [facility] [address] [id number] [place] [address] Mar, [facility] [place] [facility] [address] [id number] [place] [address] Mar, [facility] [place] [facility] [address] [id number] [place] [address] Nov, [facility] [place] [facility] [address] [id number] [place] [address] Aug, [facility] [place] [facility] [address] [id number] [place] [address]- [address] Jul, [facility] [place] [facility] [address] [id number], [place] [address] Jul, [facility] [place] [facility] [address] [id number], [place] [address] Jul, [facility] [place] [facility] [address] [id number] [place] [address] Jul, [facility] [place] [facility] [address] [id number], [place] [address] 15 Jul, 2012 [facility] [place] [facility] [address] [id number] [place] [address]- [address] 15 Jul, 2012 [facility] [place] [facility] [address] [facility] [id number], [place] [address] Feb, [facility] [id number], [place] [address] Feb, [facility] [id number], [place] [address] Feb, [facility] [address], [place] [address] December, [facility] [address], [place] [address] Aug, [facility] [address], [place] [address] Jul, [facility] [address], [place] [address] Jul, [facility] [address], [place] [address] Jul, IMMUNIZATIONS No Known Immunizations SOCIAL HISTORY Never Assessed REASON FOR VISIT EMR-[facility] PLAN OF CARE VITAL SIGNS MEDICATIONS Unknown Medications RESULTS No Results PROCEDURES No Known procedures INSTRUCTIONS MEDICATIONS ADMINISTERED No Known Medications MEDICAL (GENERAL) HISTORY Type Description Date Medical History hypertension Medical History scoliosis Medical History breast biopsy Surgical History breast biopsy-right 07/2015 Surgical History carpal tunnel bilateral 10/16-01/13 Surgical History partial hysterectomy 1996 Surgical History tonsillectomy Surgical History Spinal fusion surgery 2x 11/2017 Hospitalization History pneumonia 08/2015 Hospitalization History childbirth x 3
--- OUTSIDE RECORDS SUMMARY | 2019-01-10 20:32 | XMS REPORT | Encounter Summary ---
Author Author [facility] Organization [facility] Address Unknown Phone Unavailable Care Team Providers Care Instructor Substitute Cosmetology Name Role Phone India Pearce MD PCP Unavailable Reason for Visit * Reason Comments Back Pain Encounter Details Care Team Description Date Type Department Jimmy Lau MD [address] [facility] [place] [address] Failed back syndrome of lumbar spine (Primary Dx); Lumbar radiculopathy 10/22/2018 Office Visit [facility] [address] [place] [address] Social History Date Tobacco Use Types Packs/Day Years Used Never Smoker Smokeless Tobacco: Never Used Sex Assigned at Date Recorded Not on file Industry Job Start Date Occupation Not on file Not on file Not on file Travel End Travel History Travel Start No recent travel history available. documented as of this encounter Last Filed Vital Signs Time Taken Vital Sign Reading 10/22/2018 10:49 AM ENTERPRISE ARCHITECT MANAGER Blood Pressure 144/89 10/22/2018 10:49 AM ENTERPRISE ARCHITECT MANAGER Pulse 75 10/22/2018 10:49 AM ENTERPRISE ARCHITECT MANAGER Temperature 36.7 C (98.1 F) - Respiratory Rate - - Oxygen Saturation - - Inhaled Oxygen - Concentration 10/22/2018 10:49 AM ENTERPRISE ARCHITECT MANAGER Weight 66.8 kg (147 lb 3.2 oz) 10/22/2018 10:49 AM ENTERPRISE ARCHITECT MANAGER Height 151.1 cm (4' 11.5") 10/22/2018 10:49 AM ENTERPRISE ARCHITECT MANAGER Body Mass Index 29.23 documented in this encounter Functional Status Date [...] as of this encounter Progress Notes * Jimmy Lau MD - 10/22/2018 10:30 AM ENTERPRISE ARCHITECT MANAGER Date of Service: 10/22/2018 Subjective: Millie Ruelas is a 53 y.o. female. History of Present Illness Millie Ruelas returns today for ongoing pain in the mid back in the bilateral low back. There is occasional radiation to the lower extremities as well. She has had 2 previous lumbar fusions. She has significant scoliosis of the thoracic spine as well. She states that her pain is a constant, aching, stabbing, sharp pain. Her average pain level is 8 out of 10. She actually voluntarily stopped all opioids last year. They were not helping anymore. She has been on several muscle relaxants, gabapentin, Lyrica, and duloxetine. She remains on duloxetine but has not noticed any pain relief with it and is wondering if it is causing suicidal ideation as well as weight gain. She saw Dr. Lyon who recommended exhausting all options outside of surgery considering the extent of surgery that her spine would require. Review of Systems Constitutional: Positive for chills, diaphoresis and fatigue. Respiratory: Positive for shortness of breath. Cardiovascular: Positive for leg swelling. Gastrointestinal: Positive for nausea. Genitourinary: Positive for hematuria. Musculoskeletal: Positive for neck pain and neck stiffness. Hematological: Bruises/bleeds easily. Psychiatric/Behavioral: Positive for sleep disturbance and suicidal ideas. All other systems reviewed and are negative. Objective: acyclovir (ZOVIRAX) 200 mg capsule Take 200 [...] times daily as needed. For muscle spasms. Vitals: 10/22/18 1049 BP: 144/89 Pulse: 75 Temp: 36.7 C (98.1 F) TempSrc: Oral Weight: 66.8 kg (147 lb 3.2 oz) Height: 151.1 cm (59.5") Body mass index is 29.23 kg/m. Physical Exam General: Alert, cooperative, no acute distress. HEENT: [...] tendons. Straight leg raise is negative bilaterally. Assessment and Plan: 1. Failed back syndrome of lumbar spine 2. Lumbar radiculopathy Millie Ruelas has ongoing thoracic and low back pain with occasional radiation to lower extremities in the setting of previous lumbar surgery. She has failed local medications, physical therapy, and epidural steroid injections. Dr. Lyon has recommended exhausting all options outside of spine surgery. I think her remaining interventional option would be a spinal cord stimulator trial. I think she would require 1-lead covering the T9-T10 junction as well as one lead higher up around T1 to help with her thoracic back pain. We will call her to arrange a psychological evaluation and a trial in the near future. Given her reports of suicidal ideation and weight gain as well as lack of pain relief with duloxetine, I recommended tapering off of this gradually. She denied any active intent to harm herself or anyone else today. I provided prescription for tizanidine to see if this may help with some pain in the meantime until we get a trial performed. RPRISE ARCHITECT MANAGER documented in this encounter Plan of Treatment Not on filedocumented as of this encounter Visit Diagnoses Diagnosis Failed back syndrome of lumbar spine - Primary Postlaminectomy syndrome, lumbar region Lumbar radiculopathy Thoracic or lumbosacral neuritis or radiculitis, unspecified documented in this encounter
--- OUTSIDE RECORDS SUMMARY | 2019-01-10 20:32 | XMS REPORT | Encounter Summary ---
Author Author [facility] Organization [facility] Address Unknown Phone Unavailable Care Team Providers Care Can Carrier Name Role Phone India Pearce MD PCP Unavailable Reason for Referral * Pain Authorization (Routine) Referred By Contact Referred To Contact Status Reason Specialty Diagnoses / Procedures Jimmy Lau MD [address] [place] [address] Bhg Spn Anes Pain Cl [address] [address] No Auth Needed Anesthesia Pain Diagnoses Failed back syndrome of lumbar spine Lumbar radiculopathy P rocedures KU AMB SPINE ELECT ANAL PRGM NEUROSTIM Encounter Details Care Team Description Date Type Department Jimmy Lau MD [address] [place] [address] [phone] Failed back syndrome of lumbar spine (Primary Dx); Lumbar radiculopathy 10/27/2018 Orders Only [facility] [address] [address] Social History Date Tobacco Use Types Packs/Day [...] Treatment Order Schedule Name Priority Associated Diagnoses Expected: 10/27/2018, Expires: 01/25/2019 KU AMB SPINE ELECT ANAL PRGM NEUROSTIM Routine Failed back syndrome of lumbar spine Lumbar radiculopathy documented as of this encounter Visit Diagnoses Diagnosis Failed back syndrome of lumbar spine - Primary Postlaminectomy syndrome, lumbar region Lumbar radiculopathy Thoracic or lumbosacral neuritis or radiculitis, unspecified documented in this encounter
--- OUTSIDE RECORDS SUMMARY | 2019-01-10 20:32 | XMS REPORT ---
Author Author Migration, Doctor Organization [facility] Address Unknown Phone Unavailable Care Team Providers Care Hand Spring Former Name Role Phone Migration, Doctor Unavailable Unavailable PROBLEMS Type Condition ICD9-CM Code FWS04-ZO Code Onset Dates Condition Status SNOMED Code Problem Anxiety F41.9 Active 82362453 Problem Lumbar disc disease M51.9 Active 867460114 Problem Urinary retention R33.9 Active 644651203 Problem Nausea R11.0 Active 137574725 Problem Essential hypertension I10 Active 73247970 Problem IBS (irritable bowel syndrome) K58.9 Active 31480410 Problem Scoliosis of lumbar spine, unspecified scoliosis type M41.9 Active 938641363 Problem Diastolic congestive heart failure, unspecified HF chronicity I50.30 Active 887847911 Problem Angina pectoris I20.9 Active 050322174 Problem Sciatic nerve pain, left M54.32 Active 15928430 Problem Sciatic nerve pain, right M54.31 Active 16770332 ALLERGIES No Information ENCOUNTERS Encounter Location Date Diagnosis [address] [address] Nov, [address] [address] Nov, Essential hypertension I10 [address] [address] Nov, Anxiety F41.[address] [address] Nov, [address] [address] Nov, Skin nodule R22.9 and Anxiety F41.[address] [address] Nov, [address] [address] Nov, Skin nodule R22.9 ; Anxiety F41.9 and Chronic prescription benzodiazepine use Z79.[address] [address] Oct, Anxiety F41.[address] [address] Oct, [address] [address] Oct, Anxiety F41.[address] [address] 14 Oct, 2018 [facility] [address] [place] [address] 14 Oct, [address] [address] Oct, IBS (irritable bowel syndrome) K58.[address] [address] Oct, IBS (irritable bowel syndrome) K58.[address] [address] Oct, Nausea R11.[address] [address] Oct, [place] [id number] [place] [address] Oct, Anxiety F41.[address] [address] Oct, General medical examination Z00.00 ; Diastolic congestive heart failure, unspecified HF chronicity I50.30 ; Angina pectoris I20.9 ; Sciatic nerve pain, right M54.31 ; Sciatic nerve pain, left M54.32 ; Scoliosis of lumbar spine, unspecified scoliosis type M41.9 ; Anxiety F41.9 ; Urinary retention R33.9 and Essential hypertension I10 [facility] [address] [facility] [place] [address] Oct, Sciatic nerve pain, right M54.31 and Sciatic nerve pain, left M54.32 [facility] [id number] [address] Mar, Lumbar disc disease M51.9 [facility] [address] [place] [address] Feb, [facility] [address] [address] Feb, [facility] [id number] [place] [address] Feb, [facility] [id number] [place] [address] December, Essential hypertension I10 ; Lumbar disc disease M51.9 ; Chest pain, unspecified type R07.9 ; Anxiety F41.9 and Scoliosis of lumbar spine , unspecified scoliosis type M41.9 [facility] [id number] [place] [address] May, [facility] [id number] [place] [address] Jan, Other acute gastritis with hemorrhage K29.01 and Essential hypertension I10 [facility] [id number] [place] [address] Jan, [facility] [id number] [place] [address] Jul, [facility] [id number] [place] [address] Jul, [facility] [address] [address] Jul, [facility] [address] [place] [address]- [address] Feb, [facility] [address] [address] December, [facility] [id number] [place] [address] December, [facility] [address] [address] December, [facility] [address] [address] [place] [address] 14 Nov, 2014 [facility] [address] [id number] [place] [address] Nov, [facility] [place] [facility] [address] [id number] [place] [address] Oct, [facility] [place] [facility] [address] [id number] [place] [address] Oct, [facility] [place] [facility] [address] [id number] [place] [address] Jul, [facility] [place] [facility] [address] [id number] [place] [address] Jul, [facility] [place] [facility] [address] [id number] [place] [address] Jul, [facility] [place] [facility] [address] [id number] [place] [address] Jul, [facility] [place] [facility] [address] [id number] [place] [address] Jul, [facility] [place] [facility] [address] [id number] [place] [address] Jul, [facility] [place] [facility] [address] [id number] [place] [address] Jul, [facility] [place] [facility] [address] [id number] [place] [address] Jul, [facility] [place] [facility] [address] [id number] [place] [address]- 4468 Jul, [facility] [place] [facility] [address] [id number] [place] [address] 1767 Jul, [facility] [place] [facility] [address] [id number] [place] [address] Jul, [facility] [place] [facility] [address] [id number] [place] [address] Jul, [facility] [place] [facility] [address] [id number] [place] [address] 09[address] Jul, [facility] [place] [facility] [address] [id number] [place] [address]- 1164 Jul, [facility] [place] [facility] [address] [id number] [place] [address]- 285[address] May, [facility] [place] [facility] [address] [id number] [place] [address] 4[address] May, [facility] [place] [facility] [address] [id number] [place] [address]- 0362 May, [facility] [place] [facility] [address] [id number] [place] [address] May, [facility] [place] [facility] [address] [id number] [place] [address]- 7329 16 May, 2014 [facility] [place] [facility] [address] [id number] [place] [address]- [address] 16 May, 2014 [facility] [place] [facility] [address] [id number] [place] [address]- 6098 16 May, 2014 [facility] [place] [facility] [address] [id number], [place] [address] 16 May, 2014 [facility] [place] [facility] [address] [id number], [place] [address]58 15 May, 2014 [facility] [place] [facility] [address] [id number], [place] [address]- 7288 15 May, 2014 [facility] [place] [facility] [address] [id number] [place] [address]- 5[address] 13 May, 2014 [facility] [place] [facility] [address] [id number] [place] [address]- 0374 13 May, 2014 [facility] [place] [facility] [address] [id number], [place] [address]- [address]841 24 May, 2014 [facility] [place] [facility] [address] [id number], [place] [address]- 6637 24 May, 2014 [facility] [place] [facility] [address] [id number] [place] [address]- 3551 11 May, 2014 [facility] [place] [facility] [address] [id number] [place] [address]- 5901 May, [facility] [place] [facility] [address] [id number] [place] [address]- 6161 May, [facility] [place] [facility] [address] [id number] [place] [address]- 7613 Jan, [facility] [place] [facility] [address] [id number] [place] [address]- 2308 Jan, [facility] [place] [facility] [address] [id number] [place] [address]- 9896 Jan, [facility] [place] [facility] [address] [id number] [place] [address]- 1220 Jan, [facility] [place] [facility] [address] [id number] [place] [address]- 8661 Jan, [facility] [place] [facility] [address] [id number] [place] [address]- 8923 Jan, [facility] [place] [facility] [address] [id number] [place] [address]- 6163 Jan, [facility] [place] [facility] [address] [id number] [place] [address]- 7089 December, [facility] [place] [facility] [address] [id number] [place] [address]- 2682 December, [facility] [place] [facility] [address] [id number] [place] [address]- 9457 December, [facility] [place] [facility] [address] [id number] [place] [address]- 1043 December, [facility] [place] [facility] [address] [id number] [place] [address]- 1248 Nov, [facility] [place] [facility] [address] [id number] [place] [address]- 7525 18 Nov, 2013 [facility] [address] [id number] [place] [address]- 5344 Jul, [facility] [place] [facility] [address] [id number] [place] [address] Jul, [facility] [address] [id number] [place] [address]- 7922 Jul, [facility] [place] [facility] [address] [id number] [place] [address]- 7725 Jul, [facility] [address] [id number] [place] [address]- 4271 May, [facility] [place] [facility] [address] [id number] [place] [address]- 4334 Mar, [facility] [place] [facility] [address] [id number] [place] [address]- 0089 Mar, [facility] [address] [id number] [place] [address]- 9934 Mar, [facility] [address] [id number] [place] [address]- 3361 Nov, [facility] [address] [id number] [place] [address]- 2990 Aug, [facility] [address] [id number] [place] [address]- 4500 Jul, [facility] [address] [id number] [place] [address]- 9093 Jul, [facility] [place] [facility] [address] [id number] [place] [address]- 3966 Jul, [facility] [place] [facility] [address] [id number] [place] [address]- 7176 Jul, [facility] [place] [facility] [address] [id number] [place] [address]- 4780 Jul, [facility] [id number], [place] [address]- 6638 Jul, [facility] [address], [place] [address]- 4156 Feb, [facility] [id number], [place] [address]- 0245 Feb, [facility] [address], [place] [address]- 3281 Feb, [facility] [address], [place] [address]- 8424 December, [facility] [address] [place] [address]- 0[address] Aug, [facility] [address], [place] [address]- 3096 Jul, [facility] [address], [place] [address]- 20[address] Jul, [facility] [id number], [place] [address]- 4547 Jul, IMMUNIZATIONS No Known Immunizations SOCIAL HISTORY Never Assessed REASON FOR VISIT [facility] PLAN OF CARE VITAL SIGNS MEDICATIONS Unknown [...]
--- OUTSIDE RECORDS SUMMARY | 2019-01-10 20:32 | XMS REPORT ---
Author Author Migration, Doctor Organization [facility] Address Unknown Phone Unavailable Care Team Providers Care Firebrick Layer Name Role Phone Migration, Doctor Unavailable Unavailable PROBLEMS Type Condition ICD9-CM Code [id number] Code Onset Dates Condition Status SNOMED Code Problem Anxiety F41.9 Active 03427568 Problem Lumbar disc disease M51.9 Active 053890937 Problem Urinary retention R33.9 Active 959305849 Problem Nausea R11.0 Active 818417011 Problem Essential hypertension I10 Active 40743471 Problem IBS (irritable bowel syndrome) K58.9 Active 04191375 Problem Scoliosis of lumbar spine, unspecified scoliosis type M41.9 Active 847911014 Problem Diastolic congestive heart failure, unspecified HF chronicity I50.30 Active 970538121 Problem Angina pectoris I20.9 Active 357608731 Problem Sciatic nerve pain, left M54.32 Active 64872275 Problem Sciatic nerve pain, right M54.31 Active 64091257 ALLERGIES No Information ENCOUNTERS Encounter Location Date Diagnosis [address] [address] December, [id number] [place] [address] Nov, Screening mammogram, encounter for Z12.31 [facility] [address] [place] [address] Nov, Insect bite (nonvenomous) of right shoulder, initial encounter S40.261A ; Tick bite W57.XXXA and Diastolic congestive heart failure, unspecified HF chronicity I50.30 [id number] [place] [address] Nov, Anxiety F41.9 [facility] [address] [facility] [id number], [place] [address] Nov, [id number] [place] [address] Nov, [id number] [place] [address] 16 Nov, 2018 [facility] I10 [facility] [id number] [place] [address] Nov, Anxiety F41.9 [facility] [address] [place] [address] Nov, [facility] [place] [address] [address] Nov, Skin nodule R22.9 and Anxiety F41.[address] [facility] [address] [address] Nov, [facility] [place] [address] [address] Nov, Skin nodule R22.9 ; Anxiety F41.9 and Chronic prescription benzodiazepine use Z79.899 [facility] [address] [place] [address] Oct, Anxiety F41.9 [facility] [address] Oct, [facility] [address] Oct, Anxiety F41.9 [facility] [address] Oct, [facility] [address] [address] Oct, [facility] [address] [place] [address] Oct, IBS (irritable bowel syndrome) K58.[address] [facility] [address] [address] Oct, IBS (irritable bowel syndrome) K58.[address] [facility] [address] [address] Oct, Nausea R11.0 [facility] [id number] [place] [address] Oct, [facility] [address] [address] Oct, Anxiety F41.[address] [facility] [address] [address] Oct, General medical examination Z00.00 ; Diastolic congestive heart failure, unspecified HF chronicity I50.30 ; Angina pectoris I20.9 ; Sciatic nerve pain, right M54.31 ; Sciatic nerve pain, left M54.32 ; Scoliosis of lumbar spine, unspecified scoliosis type M41.9 ; Anxiety F41.9 ; Urinary retention R33.9 and Essential hypertension I10 [facility] [place] [facility] [address] [facility] [place] [address] Oct, Sciatic nerve pain, right M54.31 and Sciatic nerve pain, left M54.32 [facility] [id number] [place] [address] Mar, Lumbar disc disease M51.9 [id number] [place] [address] Feb, [facility] [address] [address] Feb, [facility] [id number] [place] [address] Feb, [facility] [id number] [place] [address] December, Essential hypertension I10 ; Lumbar disc disease M51.9 ; Chest pain, unspecified type R07.9 ; Anxiety F41.9 and Scoliosis of lumbar spine , unspecified scoliosis type M41.9 [facility] [id number] [place] [address] May, [facility] [id number] [place] [address] Jan, Other acute gastritis with hemorrhage K29.01 and Essential hypertension I10 [facility] [address] [address] Jan, [facility] [id number] [place] [address] Jul, [facility] [address] [address] Jul, [facility] [address] [id number] [place] [address] Jul, [facility] [place] [facility] [address] [id number] [place] [address] Feb, [facility] [place] [facility] [address] [facility] [id number] [place] [address] December, [facility] [place] [facility] [address] [id number] [place] [address] December, [facility] [place] [facility] [address] [id number] [place] [address] December, [facility] [place] [facility] [address] [facility] [id number] [place] [address] Nov, [facility] [place] [facility] [id number] [address] Nov, [facility] [place] [facility] [address] [facility] [id number] [place] [address] Oct, [facility] [place] [facility] [id number] [place] [address] Oct, [facility] [place] [facility] [address] [facility] [id number] [place] [address] Jul, [facility] [place] [facility] [address] [id number] [place] [address] Jul, [facility] [place] [facility] [address] [facility] [id number] [place] [address] Jul, [facility] [place] [facility] [address] [id number] [place] [address] Jul, [facility] [place] [facility] [address] [facility] [id number] [place] [address] Jul, [facility] [place] [facility] [address] [facility] [id number] [place] [address] Jul, [facility] [place] [facility] [address] [id number] [place] [address] Jul, [facility] [place] [facility] [address] [id number] [place] [address] Jul, [facility] [place] [facility] [address] [id number] [place] [address]- 12[address] Jul, [facility] [place] [facility] [address] [id number] [place] [address] Jul, [facility] [place] [facility] [address] [id number] [place] [address]- 95[address] Jul, [facility] [place] [facility] [address] [id number] [place] [address] Jul, [facility] [place] [facility] [address] [id number] [place] [address]- [address] Jul, [facility] [place] [facility] [address] [id number] [place] [address] 29[address] Jul, [facility] [place] [facility] [address] [id number] [place] [address] May, [facility] [place] [facility] [address] [id number] [place] [address]- [address] May, [facility] [place] [facility] [address] [id number] [place] [address]- 4660 May, [facility] [place] [facility] [address] [id number] [place] [address]- 49[address] May, [facility] [place] [facility] [address] [id number] [place] [address]- 6765 May, [facility] [place] [facility] [address] [id number] [place] [address]- 8589 May, [facility] [place] [facility] [address] [id number] [place] [address]- 7[address] May, [facility] [place] [facility] [address] [id number] [place] [address]- [address] 16 May, 2014 [facility] [place] [facility] [address] [id number] [place] [address]- [address]78 15 May, 2014 [facility] [place] [facility] [address] [id number] [place] [address]- 48[address] 15 May, 2014 [facility] [place] [facility] [address] [id number] [place] [address]- 64[address] 13 May, 2014 [facility] [place] [facility] [address] [id number] [place] [address]- 7620 13 May, 2014 [facility] [place] [facility] [address] [id number] [place] [address]- 5835 24 May, 2014 [facility] [place] [facility] [address] [id number] [place] [address]- [address] 24 May, 2014 [facility] [place] [facility] [address] [id number] [place] [address]- 6436 11 May, 2014 [facility] [place] [facility] [address] [id number] [place] [address]- [address] 10 May, 2014 [facility] [place] [facility] [address] [id number] [place] [address]- 3070 10 May, 2014 [facility] [place] [facility] [address] [id number] [place] [address]- 6434 19 Jan, 2014 [facility] [place] [facility] [address] [id number], [place] [address]- [address] 19 Jan, 2014 [facility] [place] [facility] [address] [id number], [place] [address]- [address] 16 Jan, 2014 [facility] [place] [facility] [address] [id number] [place] [address]- 40[address] 16 Jan, 2014 [facility] [place] [facility] [address] [id number], [place] [address]- [address] 11 Jan, 2014 [facility] [place] [facility] [address] [id number] [place] [address]- 4248 09 Jan, 2014 [facility] [place] [facility] [address] [id number] [place] [address]- 4281 Jan, [facility] [address] [id number] [place] [address]- 2195 December, [facility] [address] [id number] [place] [address]- 6[address] December, [facility] [address] [id number] [place] [address]- 8047 December, [facility] [address] [id number] [place] [address]- 3616 December, [facility] [address] [id number] [place] [address]- 1436 Nov, [facility] [address] [id number] [place] [address]- 8977 Nov, [facility] [address] [id number] [place] [address]- 7210 Jul, [facility] [address] [id number] [place] [address]- 5368 Jul, [facility] [address] [id number] [place] [address]- 2573 Jul, [facility] [address] [id number] [place] [address]- 8064 Jul, [facility] [address] [id number] [place] [address]- 6199 May, [facility] [address] [id number] [place] [address]- 0245 Mar, [facility] [address] [id number] [place] [address]- 0569 Mar, [facility] [place] [facility] [address] [id number] [place] [address]- 5801 Mar, [facility] [address] [id number] [place] [address]- 5865 Nov, [facility] [address] [id number], [place] [address]- [address]87 Aug, [facility] [address] [facility] [id number], [place] [address]- [address]106 Jul, [facility] [address] [facility] [id number], [place] [address]- [address] Jul, [facility] [address] [facility] [id number], [place] [address]- 7936 Jul, [facility] [address] [id number], [place] [address]- 4[address] Jul, [facility] [address] [facility] [id number], [place] [address]- [address] Jul, [facility] [address] [facility] [id number], [place] [address]- 6547 Jul, [facility] [address] [facility] [id number], [place] [address]- 4832 Feb, [facility] [address] [facility] [id number], [place] [address]- 8710 Feb, [facility] [address] [id number], [place] [address]- 490[address] Feb, [facility] [address] [id number], [place] [address]- [address]166 December, [facility] [address] [facility] [id number], [place] [address]- 8215 Aug, [facility] [address] [facility] [id number], [place] [address]- 2756 Jul, [facility] [address] [facility] [id number], [place] [address]- [address] Jul, [facility] [address] [id number], [place] [address]- [address] Jul, IMMUNIZATIONS No Known Immunizations SOCIAL HISTORY Never Assessed REASON FOR VISIT EMR-Fermín PLAN OF CARE VITAL SIGNS MEDICATIONS Unknown [...]
--- OUTSIDE RECORDS SUMMARY | 2019-01-10 20:33 | XMS REPORT ---
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 Name Role Phone Migration, Doctor Unavailable Unavailable PROBLEMS Type Condition ICD9-CM Code UBM24-HX Code Onset Dates Condition Status SNOMED Code Problem Anxiety F41.9 Active 34586039 Problem Lumbar disc disease M51.9 Active 463565056 Problem Urinary retention R33.9 Active 623625812 Problem Nausea R11.0 Active 375583419 Problem Essential hypertension I10 Active 86943911 Problem IBS (irritable bowel syndrome) K58.9 Active 14125756 Problem Scoliosis of lumbar spine, unspecified scoliosis type M41.9 Active 704794113 Problem Diastolic congestive heart failure, unspecified HF chronicity I50.30 Active 768130684 Problem Angina pectoris I20.9 Active 956988181 Problem Sciatic nerve pain, left M54.32 Active 06988803 Problem Sciatic nerve pain, right M54.31 Active 49568987 ALLERGIES No Information ENCOUNTERS Encounter Location Date Diagnosis [address] [address] Oct, Anxiety F41.[address] [address] 28 Oct, [address] [address] 26 Oct, 2018 Anxiety F41.[address] [address] 14 Oct, 2018 [facility] [address] [facility] [id number] [place] [address] 14 Oct, [address] [address] Oct, IBS (irritable bowel syndrome) K58.[address] [address] Oct, IBS (irritable bowel syndrome) K58.[address] [address] Oct, Nausea R11.0 [facility] [place] [address] [place] [address] Oct, [facility] [id number] [address] Oct, Anxiety F41.9 [facility] [address] [place] [address] Oct, General medical examination Z00.00 ; Diastolic congestive heart failure, unspecified HF chronicity I50.30 ; Angina pectoris I20.9 ; Sciatic nerve pain, right M54.31 ; Sciatic nerve pain, left M54.32 ; Scoliosis of lumbar spine, unspecified scoliosis type M41.9 ; Anxiety F41.9 ; Urinary retention R33.9 and Essential hypertension I10 [facility] [address] [place] [address] Oct, Sciatic nerve pain, right M54.31 and Sciatic nerve pain, left M54.32 [place] [id number] [place] [address] Mar, Lumbar disc disease M51.9 [place] [id number] [address] Feb, [facility] [id number] [place] [address] Feb, [place] [id number] [place] [address] Feb, [place] [id number] [place] [address] December, Essential hypertension I10 ; Lumbar disc disease M51.9 ; Chest pain, unspecified type R07.9 ; Anxiety F41.9 and Scoliosis of lumbar spine , unspecified scoliosis type M41.9 [facility] [id number] [place] [address] May, [facility] [id number] [address] Jan, Other acute gastritis with hemorrhage K29.01 and Essential hypertension I10 [facility] [address] [id number] [place] [address] Jan, [facility] [place] [address] [facility] [id number] [place] [address] Jul, [facility] [address] [facility] [id number] [place] [address] 37[address] Jul, [facility] [address] [id number] [place] [address] 3199 Jul, [facility] [address] [id number] [place] [address] Feb, [facility] [place] [address] [facility] [id number] [place] [address] 8[address] December, [facility] [address] [place] [address] December, [facility] [address] [facility] [id number] [place] [address] 7309 December, [facility] [address] [place] [address] 365[address] Nov, [facility] [address] [place] [address] Nov, [facility] [address] [place] [address] Oct, [facility] [address] [facility] [id number] [place] [address] 2057 Oct, [facility] [address] [id number] [place] [address] Jul, [facility] [address] [facility] [id number] [place] [address] 6011 Jul, [facility] [address] [id number] [address] Jul, [facility] [place] [facility] [address] [id number] [place] [address] 4233 Jul, [facility] [place] [facility] [address] [id number] [place] [address] 2090 Jul, [facility] [place] [facility] [address] [id number] [place] [address]- 7255 Jul, [facility] [place] [facility] [address] [id number] [place] [address]- 7584 Jul, [facility] [place] [facility] [address] [id number] [place] [address]- 6433 Jul, [facility] [place] [facility] [address] [id number] [place] [address]- 3610 Jul, [facility] [place] [facility] [address] [id number] [place] [address]- 5630 Jul, [facility] [place] [facility] [address] [id number] [place] [address]- 7849 Jul, [facility] [place] [facility] [address] [id number] [place] [address]- 4753 Jul, [facility] [place] [facility] [address] [id number] [place] [address]- 4423 Jul, [facility] [place] [facility] [address] [id number] [place] [address]- 2664 Jul, [facility] [place] [facility] [address] [id number] [place] [address]- 9849 May, [facility] [place] [facility] [address] [id number] [place] [address]- 4959 May, [facility] [place] [facility] [address] [id number] [place] [address]- 6181 May, [facility] [place] [facility] [address] [id number] [place] [address]- 7040 May, [facility] [place] [facility] [address] [id number] [place] [address]- 3518 16 May, 2014 [facility] [place] [facility] [address] [id number] [place] [address]- 4103 16 May, 2014 [facility] [place] [facility] [address] [id number] [place] [address]- 5438 16 May, 2014 [facility] [place] [facility] [address] [id number] [place] [address]- 0202 16 May, 2014 [facility] [place] [facility] [address] [id number] [place] [address]- 1935 15 May, 2014 [facility] [place] [facility] [address] [id number] [place] [address]- 7505 15 May, 2014 [facility] [place] [facility] [address] [id number] [place] [address]- 7341 13 May, 2014 [facility] [place] [facility] [address] [id number] [place] [address]- 6540 13 May, 2014 [facility] [place] [facility] [address] [id number] [place] [address]- 8636 24 May, 2014 [facility] [place] [facility] [address] [id number] [place] [address]- 7761 24 May, 2014 [facility] [place] [facility] [address] [id number] [place] [address]- 3514 11 May, 2014 [facility] [place] [facility] [address] [id number] [place] [address]- 3783 10 May, 2014 [facility] [place] [facility] [address] [id number] [place] [address]- 7702 10 May, 2014 [facility] [place] [facility] [address] [id number] [place] [address]- 8645 19 Jan, 2014 [facility] [place] [facility] [address] [id number] [place] [address]- 0783 19 Jan, 2014 [facility] [place] [facility] [address] [id number] [place] [address]- 2753 16 Jan, 2014 [facility] [place] [facility] [address] [id number] [place] [address]- 7671 16 Jan, 2014 [facility] [address] [id number] [place] [address]- 7347 Jan, [facility] [place] [facility] [address] [id number] [place] [address]- 5937 Jan, [facility] [address] [id number] [place] [address]- 2645 Jan, [facility] [address] [id number] [place] [address]- 9845 December, [facility] [address] [id number] [place] [address]- 2392 December, [facility] [address] [id number] [place] [address]- 7416 December, [facility] [address] [id number] [place] [address]- 9843 December, [facility] [address] [id number] [place] [address]- 1388 Nov, [facility] [address] [id number] [place] [address]- 3401 Nov, [facility] [address] [id number] [place] [address]- 6287 Jul, [facility] [place] [facility] [address] [id number] [place] [address]- 7444 19 Jul, 2013 [facility] [address] [id number] [place] [address]- 1947 Jul, [facility] [place] [facility] [address] [id number] [place] [address]- 4265 18 Jul, 2013 [facility] [place] [facility] [address] [id number] [place] [address]- 1938 15 May, 2013 [facility] [place] [facility] [address] [id number] [place] [address]- 7626 Mar, [facility] [address] [id number] [place] [address]- 1580 Mar, [facility] [place] [facility] [address] [id number] [place] [address]- 0852 Mar, [facility] [place] [facility] [address] [id number] [place] [address]- 3500 Nov, [facility] [place] [facility] [address] [id number] [place] [address]- 1721 Aug, [facility] [place] [facility] [address] [id number] [place] [address]- 1066 Jul, [facility] [place] [facility] [address] [id number] [place] [address]- 7101 Jul, [facility] [place] [facility] [address] [id number] [place] [address]- 0886 Jul, [facility] [place] [facility] [address] [id number] [place] [address]- 8679 Jul, [facility] [place] [facility] [address] [id number] [place] [address]- 7376 Jul, [facility] [place] [facility] [address] [id number] [place] [address]- 0481 Jul, [facility] [place] [facility] [address] [id number] [place] [address]- 5163 Feb, [facility] [place] [facility] [address] [id number] [place] [address]- 2272 Feb, [facility] [place] [facility] [address] [id number] [place] [address]- 8312 Feb, [facility] [place] [facility] [address] [id number] [place] [address]- 3896 December, [facility] [place] [facility] [address] [id number] [place] [address]- 8094 Aug, [facility] [place] [facility] [address] [id number] [address]- 9506 Jul, [facility] [address] [facility] [id number] [place] [address]- 6816 Jul, [facility] [address] [facility] [id number] [place] [address]- 3457 Jul, IMMUNIZATIONS No Known Immunizations SOCIAL HISTORY Never Assessed REASON FOR VISIT EMR-[facility] PLAN OF CARE VITAL SIGNS MEDICATIONS Medication Instructions Dosage Frequency Start Date End Date Duration Status Aspirin 81 mg 1 tablet by Oral route 1 time per day Mar, Active Naproxen 500 mg take 1 tablet (500 mg) by oral route 2 times per day with food Jan, Active Hydrocodone-Acetaminophen 5-325 mg take 1 tablet by Oral route 2 times per day as needed for pain May, Active Calcet Petites 200 mg calcium -250 unit 1 Tablet by Oral route 1 time per day May, Active Xanax 1 mg 1 tablet by Oral route 1 time per day Oct, Active Nitroglycerin 0.[address] 1 tablet by Sublingual route every 5 minutes for chest pain; Max 3 tabs in 15 min PRN Mar, Active Atenolol 50 mg take 1 tablet by Oral route 1 time per day Oct, Active RESULTS No Results PROCEDURES No Known procedures [...]
--- OUTSIDE RECORDS SUMMARY | 2019-01-10 20:33 | XMS REPORT ---
Author Author CORTEZ DYE Organization [facility] Address [address] [place] [address] Care Team Providers Care Housekeeping Attendant Name Role Phone CORTEZ DYE Unavailable PROBLEMS Type Condition ICD9-CM Code XRX92-GC Code Onset Dates Condition Status SNOMED Code Problem Anxiety F41.9 Active 81391121 Problem Essential hypertension I10 Active 17264426 Problem Lumbar disc disease M51.9 Active 751703707 Problem Scoliosis of lumbar spine, unspecified scoliosis type M41.9 Active 569435407 ALLERGIES Substance Reaction Event Type Date Status Demerol hypotension and anaphylaxix Drug Allergy Mar, Active Codeine Sulfate itching and hives Drug Allergy Mar, Active ENCOUNTERS Encounter Location Date Diagnosis [place] [id number] [place] [address]- 9552 Mar, Lumbar disc disease M51.9 [facility] [id number] [place] [address] 25581- 0453 Feb, [place] [id number] [place] [address] 83273- 8306 Feb, [place] [id number] [place] [address] 05547- 0459 Feb, [place] [id number] [place] [address] 05585- 4951 December, Essential hypertension I10 ; Lumbar disc disease M51.9 ; Chest pain, unspecified type R07.9 ; Anxiety F41.9 and Scoliosis of lumbar spine , unspecified scoliosis type M41.9 [facility] [id number] [place] [address] 64576- 5299 May, [facility] [id number] [place] [address] 78427- 5517 Jan, Other acute gastritis with hemorrhage K29.01 and Essential hypertension I10 [facility] [address] [id number] [place] [address]- 1252 Jan, [facility] [place] [address] [id number] [place] [address]- 8786 Jul, [facility] [address] [facility] [id number] [place] [address], [place] [address]- 4823 Jul, [facility] [address] [id number] [address] [place] [address], [place] [address]- 8609 Jul, [facility] [id number] [place] [address], [place] [address]- 9791 Feb, [facility] [id number] [place] [address], [place] [address]- 5502 December, [facility] [id number] [place] [address], [place] [address]- 8130 December, [facility] [address] [facility] [id number] [place] [address]- 1482 December, [facility] [id number] [place] [address], [place] [address]- 9850 Nov, [facility] [address] [id number] [place] [address]- 5266 Nov, [facility] [address] [place] [address]- 9959 Oct, [facility] [address] [facility] [id number] [place] [address]- 0641 Oct, [facility] [address] 6178 Jul, [facility] [address] [facility] [id number] [place] [address]- 5742 Jul, [facility] [address] [address] 9935 Jul, [facility] [place] [facility] [address] [id number] [place] [address]- 4151 Jul, [facility] [place] [facility] [address] [id number] [place] [address]- 8372 Jul, [facility] [place] [facility] [address] [id number] [place] [address]- 4530 Jul, [facility] [place] [facility] [address] [id number] [place] [address]- 2219 Jul, [facility] [place] [facility] [address] [id number] [place] [address]- 5376 Jul, [facility] [place] [facility] [address] [id number] [place] [address]- 7576 Jul, [facility] [place] [facility] [address] [id number] [place] [address]- 8407 Jul, [facility] [place] [facility] [address] [id number] [place] [address]- 9710 Jul, [facility] [place] [facility] [address] [id number] [place] [address]- 2054 Jul, [facility] [place] [facility] [address] [id number] [place] [address]- 3551 Jul, [facility] [place] [facility] [address] [id number] [place] [address]- 7553 Jul, [facility] [place] [facility] [address] [id number], [place] [address]- 9034 May, [facility] [place] [facility] [address] [id number] [place] [address]- 5976 May, [facility] [place] [facility] [address] [id number] [place] [address]- 7788 May, [facility] [place] [facility] [address] [id number] [place] [address]- 4438 May, [facility] [place] [facility] [address] [id number] [place] [address]- 3484 16 May, 2014 [facility] [place] [facility] [address] [id number] [place] [address]- 4497 16 May, 2014 [facility] [place] [facility] [address] [id number] [place] [address]- 0463 16 May, 2014 [facility] [place] [facility] [address] [id number] [place] [address]- 8405 16 May, 2014 [facility] [place] [facility] [address] [id number] [place] [address]- 0836 15 May, 2014 [facility] [place] [facility] [address] [id number] [place] [address]- 7846 15 May, 2014 [facility] [place] [facility] [address] [id number] [place] [address]- 3189 13 May, 2014 [facility] [place] [facility] [address] [id number] [place] [address]- 3712 13 May, 2014 [facility] [place] [facility] [address] [id number] [place] [address]- 2346 24 May, 2013 [facility] [place] [facility] [address] [id number] [place] [address]- 1198 24 May, 2013 [facility] [place] [facility] [address] [id number] [place] [address]- 0791 11 May, 2013 [facility] [place] [facility] [address] [id number] [place] [address]- 5654 10 May, 2013 [facility] [place] [facility] [address] [id number], [place] [address]- 0256 10 May, 2013 [facility] [place] [facility] [address] [id number] [place] [address]- 2142 19 Jan, 2014 [facility] [place] [facility] [address] [id number] [place] [address]- 6577 19 Jan, 2014 [facility] [place] [facility] [address] [id number], [place] [address]- 1048 16 Jan, 2014 [facility] [place] [facility] [address] [id number] [place] [address]- 3793 16 Jan, 2014 [facility] [place] [facility] [address] [id number] [place] [address]- 6048 Jan, [facility] [place] [facility] [address] [id number] [place] [address]- 6362 Jan, [facility] [place] [facility] [address] [id number] [place] [address]- 9397 Jan, [facility] [place] [facility] [address] [id number] [place] [address]- 3654 December, [facility] [place] [facility] [address] [id number] [place] [address]- 4440 December, [facility] [place] [facility] [address] [id number] [place] [address]- 7017 December, [facility] [place] [facility] [address] [id number] [place] [address]- 8935 December, [facility] [place] [facility] [address] [id number] [place] [address]- 8589 Nov, [facility] [place] [facility] [address] [id number] [place] [address]- 4821 Nov, [facility] [place] [facility] [address] [id number] [place] [address]- 9725 Jul, [facility] [place] [facility] [address] [id number] [place] [address]- 6365 19 Jul, 2013 [facility] [place] [facility] [address] [id number] [place] [address]- 9579 18 Jul, 2013 [facility] [place] [facility] [address] [id number] [place] [address]- 1901 18 Jul, 2013 [facility] [place] [facility] [address] [id number] [place] [address]- 4014 15 May, 2013 [facility] [place] [facility] [address] [id number] [place] [address] Mar, [facility] [address] [id number] [place] [address] Mar, [facility] [place] [facility] [address] [id number] [place] [address] Mar, [facility] [place] [facility] [address] [id number] [place] [address] Nov, [facility] [place] [facility] [address] [id number] [place] [address] Aug, [facility] [place] [facility] [address] [id number] [place] [address] Jul, [facility] [place] [facility] [address] [id number] [place] [address] Jul, [facility] [place] [facility] [address] [id number] [place] [address] Jul, [facility] [place] [facility] [address] [id number] [place] [address] Jul, [facility] [place] [facility] [address] [id number] [place] [address] Jul, [facility] [place] [facility] [address] [id number] [place] [address] Jul, [facility] [place] [facility] [address] [id number] [place] [address] Feb, [facility] [place] [facility] [address] [id number], [place] [address] Feb, [facility] [place] [facility] [address] [id number] [place] [address] Feb, [facility] [place] [facility] [address] [id number] [place] [address] December, [facility] [place] [facility] [address] [id number] [place] [address] Aug, [facility] [place] [facility] [address] [facility] [id number] [place] [address] Jul, [facility] [address] [facility] [id number] [place] [address] Jul, [facility] [address] [facility] [id number] [place] [address] Jul, IMMUNIZATIONS No Known Immunizations SOCIAL HISTORY Never Assessed REASON FOR VISIT Pain Management per Jeffry ---[facility] PLAN OF CARE Activity Details Follow Up pt will call Reason: VITAL SIGNS Height 58 in 2018-04-27 Weight 134.4 lbs 2018-04-27 Temperature 97.8 degrees Fahrenheit 2018-04-27 Heart Rate 72 bpm 2018-04-27 Respiratory Rate 18 2018-04-27 BMI 28.09 kg/m2 2018-04-27 Blood pressure systolic 110 mmHg 2018-04-27 Blood pressure diastolic 68 mmHg 2018-04-27 MEDICATIONS Medication Instructions Dosage Frequency Start Date End Date Duration Status Aspirin 81 mg 1 tablet by Oral route 1 time per day Mar, Active Calcet Petites 200 mg calcium -250 unit 1 Tablet by Oral route 1 time per day May, Active Spironolactone 25 MG Orally Once a day 1 tablet 24h Active Nitroglycerin [address] 1 tablet by Sublingual route every 5 minutes for chest pain; Max 3 tabs in 15 min PRN Mar, 30 days Active Xanax 1 mg 1 tablet by Oral route 1 time per day Oct, Active Hydrocodone-Acetaminophen 7.5-325 MG Orally every 6 hrs 1 tablet as needed 6h Active Furosemide 40 MG Orally Once a day 1 tablet 24h Active RESULTS No Results PROCEDURES Procedure Date Ordered Result Body Site [facility] VISIT ESTABLISHED PATIENT Apr 27, 2018 INSTRUCTIONS MEDICATIONS ADMINISTERED No Known Medications MEDICAL [...]
--- OUTSIDE RECORDS SUMMARY | 2019-01-10 20:33 | XMS REPORT ---
Author Author Migration, Doctor Organization [facility] Address Unknown Phone Unavailable Care Team Providers Care Blood Typer Name Role Phone Migration, Doctor Unavailable Unavailable PROBLEMS Type Condition ICD9-CM Code YYQ85-OM Code Onset Dates Condition Status SNOMED Code Problem Anxiety F41.9 Active 89487946 Problem Lumbar disc disease M51.9 Active 599576353 Problem Urinary retention R33.9 Active 882464048 Problem Nausea R11.0 Active 034519813 Problem Essential hypertension I10 Active 04786062 Problem IBS (irritable bowel syndrome) K58.9 Active 20878690 Problem Scoliosis of lumbar spine, unspecified scoliosis type M41.9 Active 599037167 Problem Diastolic congestive heart failure, unspecified HF chronicity I50.30 Active 373055109 Problem Angina pectoris I20.9 Active 094257608 Problem Sciatic nerve pain, left M54.32 Active 77604049 Problem Sciatic nerve pain, right M54.31 Active 75850071 ALLERGIES No Information ENCOUNTERS Encounter Location Date Diagnosis [address] [address] Nov, Anxiety F41.[address] [address] Nov, [address] [address] Nov, Skin nodule R22.9 and Anxiety F41.[address] [address] Nov, [address] [address] Nov, Skin nodule R22.9 ; Anxiety F41.9 and Chronic prescription benzodiazepine use Z79.[address] [address] Oct, Anxiety F41.[address] [address] Oct, [address] [address] Oct, Anxiety F41.[address] [address] Oct, [facility] [address] [address] Oct, [facility] [id number] [place] [address] Oct, IBS (irritable bowel syndrome) K58.[address] [address] Oct, IBS (irritable bowel syndrome) K58.[address] [address] Oct, Nausea R11.[address] [address] Oct, [place] [id number], [place] [address] Oct, Anxiety F41.[address] [address] Oct, General medical examination Z00.00 ; Diastolic congestive heart failure, unspecified HF chronicity I50.30 ; Angina pectoris I20.9 ; Sciatic nerve pain, right M54.31 ; Sciatic nerve pain, left M54.32 ; Scoliosis of lumbar spine, unspecified scoliosis type M41.9 ; Anxiety F41.9 ; Urinary retention R33.9 and Essential hypertension I10 [facility] [address] [place] [address] Oct, Sciatic nerve pain, right M54.31 and Sciatic nerve pain, left M54.32 [facility] [address] [facility] [id number] [address] Mar, Lumbar disc disease M51.9 [facility] [address], [place] [address] Feb, [facility] [address], [place] [address] Feb, [place] [id number] [address] Feb, [facility] [id number] [place] [address] December, Essential hypertension I10 ; Lumbar disc disease M51.9 ; Chest pain, unspecified type R07.9 ; Anxiety F41.9 and Scoliosis of lumbar spine , unspecified scoliosis type M41.9 [facility] [id number] [place] [address] May, [facility] [id number] [place] [address] Jan, Other acute gastritis with hemorrhage K29.01 and Essential hypertension I10 [facility] [id number] [place] [address] Jan, [facility] [id number] [place] [address] Jul, [facility] [id number] [place] [address] 3089 Jul, [facility] [id number] [place] [address] Jul, [facility] [address] [address] Feb, [facility] [address], [place] [address] December, [facility] [id number], [place] [address] December, [facility] [id number] [place] [address]- 5[address] December, [facility] [address] [address] Nov, [facility] [id number] [place] [address] 75[address]19- [address] Nov, [facility] [place] [facility] [address] [id number] [place] [address] 37[address] Oct, [facility] [place] [facility] [address] [id number] [place] [address] 89[address] Oct, [facility] [place] [facility] [address] [id number] [place] [address] Jul, [facility] [place] [facility] [address] [id number] [place] [address] 7[address] Jul, [facility] [place] [facility] [address] [id number] [place] [address]- 1188 Jul, [facility] [place] [facility] [address] [id number] [place] [address]- 2490 Jul, [facility] [place] [facility] [address] [id number] [place] [address]- 5759 Jul, [facility] [place] [facility] [address] [id number] [place] [address] 6[address] Jul, [facility] [place] [facility] [address] [id number] [place] [address]- 5[address] Jul, [facility] [place] [facility] [address] [id number] [place] [address]- 00[address] Jul, [facility] [place] [facility] [address] [id number] [place] [address] 4110 Jul, [facility] [place] [facility] [address] [id number], [place] [address] Jul, [facility] [place] [facility] [address] [id number] [place] [address]- 8142 Jul, [facility] [place] [facility] [address] [id number] [place] [address]- 5155 Jul, [facility] [place] [facility] [address] [id number] [place] [address]- 1240 Jul, [facility] [place] [facility] [address] [id number], [place] [address] Jul, [facility] [place] [facility] [address] [id number] [place] [address]- 1021 20 May, 2014 [facility] [place] [facility] [address] [id number] [place] [address]- 7600 20 May, 2014 [facility] [place] [facility] [address] [id number] [place] [address]- 2385 20 May, 2014 [facility] [place] [facility] [address] [id number] [place] [address]- 7996 20 May, 2014 [facility] [place] [facility] [address] [id number] [place] [address]- 5584 16 May, 2014 [facility] [place] [facility] [address] [id number] [place] [address]- 8060 16 May, 2013 [facility] [place] [facility] [address] [id number] [place] [address]- 0590 16 May, 2014 [facility] [place] [facility] [address] [id number] [place] [address]- 8104 16 May, 2014 [facility] [place] [facility] [address] [id number] [place] [address]- 9391 15 May, 2014 [facility] [place] [facility] [address] [id number] [place] [address]- 0726 15 May, 2014 [facility] [place] [facility] [address] [id number], [place] [address] 20[address] 13 May, 2014 [facility] [place] [facility] [address] [id number], [place] [address]- 1036 13 May, 2014 [facility] [place] [facility] [address] [id number] [place] [address]- 5500 24 May, 2014 [facility] [place] [facility] [address] [id number] [place] [address]- 0559 24 May, 2013 [facility] [place] [facility] [address] [id number] [place] [address]- 0191 11 May, 2014 [facility] [place] [facility] [address] [id number] [place] [address]- 6556 10 May, 2014 [facility] [place] [facility] [address] [id number] [place] [address]- 4063 10 May, 2014 [facility] [place] [facility] [address] [id number] [place] [address]- 8331 Jan, [facility] [place] [facility] [address] [id number] [place] [address]- 1378 Jan, [facility] [place] [facility] [address] [id number] [place] [address]- 0104 Jan, [facility] [place] [facility] [address] [id number] [place] [address]- 8677 Jan, [facility] [place] [facility] [address] [id number] [place] [address]- 3997 Jan, [facility] [place] [facility] [address] [id number] [place] [address]- 6272 Jan, [facility] [place] [facility] [address] [id number] [place] [address]- 7706 Jan, [facility] [place] [facility] [address] [id number] [place] [address]- 6253 December, [facility] [place] [facility] [address] [id number] [place] [address]- 0996 December, [facility] [place] [facility] [address] [id number] [place] [address]- 8140 December, [facility] [place] [facility] [address] [id number] [place] [address]- 9463 December, [facility] [place] [facility] [address] [id number] [place] [address]- 7670 Nov, [facility] [place] [facility] [address] [id number] [place] [address]- 1416 Nov, [facility] [place] [facility] [address] [id number] [place] [address]- 2999 Jul, [facility] [address] [id number] [place] [address]- 0145 Jul, [facility] [place] [facility] [address] [id number] [place] [address]- 3132 Jul, [facility] [place] [facility] [address] [id number] [place] 0091 Jul, [facility] [place] [facility] [address] [id number] [place] [address]- 3529 May, [facility] [place] [facility] [address] [id number] [place] [address]- 5958 Mar, [facility] [place] [facility] [address] [id number] [place] [address]- 2130 Mar, [facility] [place] [facility] [address] [id number] [place] [address]- 3189 Mar, [facility] [place] [facility] [address] [id number] [place] [address]- 1419 Nov, [facility] [place] [facility] [address] [id number] [place] [address]- 6375 Aug, [facility] [place] [facility] [address] [id number] [place] [address]- 1168 Jul, [facility] [place] [facility] [address] [id number], [place] [address]- 4625 Jul, [facility] [place] [facility] [address] [id number], [place] [address]- 5555 Jul, [facility] [place] [facility] [address] [id number] [place] [address]- 4919 Jul, [facility] [place] [facility] [address] [id number], [place] [address]- 1907 15 Jul, 2012 [facility] [place] [facility] [address] [id number] [place] [address]- 7428 15 Jul, 2012 [facility] [place] [facility] [address] [facility] [id number], [place] [address]- 1941 Feb, [facility] [id number], [place] [address]- 7771 Feb, [facility] [id number], [place] [address]- 6990 Feb, [facility] [address], [place] [address]- 2554 December, [facility] [address], [place] [address]- 5125 Aug, [facility] [address], [place] [address]- 6086 Jul, [facility] [address], [place] [address]- 2539 Jul, [facility] [address], [place] [address]- 1802 Jul, IMMUNIZATIONS No Known Immunizations SOCIAL HISTORY Never Assessed REASON FOR VISIT EMR-[facility] PLAN OF CARE VITAL SIGNS [...]
--- OUTSIDE RECORDS SUMMARY | 2019-01-10 20:33 | XMS REPORT ---
Author Author Migration, Doctor Organization [facility] Address Unknown Phone Unavailable Care Team Providers Care Assistant Associate Full Professor Name Role Phone Migration, Doctor Unavailable Unavailable PROBLEMS Type Condition ICD9-CM Code GVN12-SD Code Onset Dates Condition Status SNOMED Code Problem Anxiety F41.9 Active 81016299 Problem Lumbar disc disease M51.9 Active 852273806 Problem Urinary retention R33.9 Active 941614499 Problem Nausea R11.0 Active 800780221 Problem Essential hypertension I10 Active 34770595 Problem IBS (irritable bowel syndrome) K58.9 Active 60428640 Problem Scoliosis of lumbar spine, unspecified scoliosis type M41.9 Active 247254405 Problem Diastolic congestive heart failure, unspecified HF chronicity I50.30 Active 741451778 Problem Angina pectoris I20.9 Active 205078222 Problem Sciatic nerve pain, left M54.32 Active 49736212 Problem Sciatic nerve pain, right M54.31 Active 05810195 ALLERGIES No Information ENCOUNTERS Encounter Location Date Diagnosis [address] [address] Oct, Anxiety F41.[address] [address] 28 Oct, [address] [address] 26 Oct, 2018 Anxiety F41.[address] [address] 14 Oct, 2018 [facility] [address] [facility] [id number] [place] [address]- [address] 14 Oct, [address] [address] Oct, IBS (irritable bowel syndrome) K58.[address] [address] Oct, IBS (irritable bowel syndrome) K58.[address] [address] Oct, Nausea R11.0 [facility] [address] [place] [address] Oct, [facility] [id number] [place] [address] Oct, Anxiety F41.9 [facility] [address] [place] [address] Oct, General medical examination Z00.00 ; Diastolic congestive heart failure, unspecified HF chronicity I50.30 ; Angina pectoris I20.9 ; Sciatic nerve pain, right M54.31 ; Sciatic nerve pain, left M54.32 ; Scoliosis of lumbar spine, unspecified scoliosis type M41.9 ; Anxiety F41.9 ; Urinary retention R33.9 and Essential hypertension I10 [facility] [address] [place] [address] Oct, Sciatic nerve pain, right M54.31 and Sciatic nerve pain, left M54.32 [place] [id number] [place] [address] Mar, Lumbar disc disease M51.9 [place] [address] [id number] [place] [address]- 1096 Feb, [facility] [id number] [place] [address]- 5003 Feb, [place] [id number] [place] [address]- 0408 Feb, [place] [id number] [place] [address] 2020[address]- 3968 December, Essential hypertension I10 ; Lumbar disc disease M51.9 ; Chest pain, unspecified type R07.9 ; Anxiety F41.9 and Scoliosis of lumbar spine , unspecified scoliosis type M41.9 [facility] [id number] [place] [address]- 6294 May, [facility] [id number] [place] [address]- 7464 Jan, Other acute gastritis with hemorrhage K29.01 and Essential hypertension I10 [facility] [address] [id number] [place] [address]- 7541 Jan, [facility] [address] [facility] [id number] [place] [address]- 7667 Jul, [facility] [address] [facility] [id number] [place] [address]- 9766 Jul, [facility] [address] [id number] [place] [address]- 9239 Jul, [facility] [address] [place] [id number] [place] [address]- 4695 Feb, [facility] [address] [facility] [id number] [place] [address]- 2853 December, [facility] [id number] [place] [address]- 0393 December, [facility] [address] [facility] [id number] [place] [address]- 5219 December, [facility] [id number] [place] [address]- 4690 Nov, [facility] [id number] [place] [address]- 9515 Nov, [facility] [id number] [place] [address]- 0866 Oct, [facility] [address] [facility] [id number] [place] [address]- 0694 Oct, [facility] [id number] [place] [address]- 9957 Jul, [facility] [address] [facility] [id number] [place] [address]- 6376 Jul, [facility] [id number] 9591 Jul, [facility] [place] [facility] [address] [id number] [place] [address]- 6840 Jul, [facility] [place] [facility] [address] [id number] [place] [address]- 4659 Jul, [facility] [place] [facility] [address] [id number] [place] [address]- 6046 Jul, [facility] [place] [facility] [address] [id number] [place] [address]- 0902 Jul, [facility] [place] [facility] [address] [id number] [place] [address]- 3328 Jul, [facility] [place] [facility] [address] [id number] [place] [address]- 9188 Jul, [facility] [place] [facility] [address] [id number] [place] [address]- 6652 Jul, [facility] [place] [facility] [address] [id number] [place] [address]- 4796 Jul, [facility] [place] [facility] [address] [id number] [place] [address]- 0148 Jul, [facility] [place] [facility] [address] [id number] [place] [address]- 8750 Jul, [facility] [place] [facility] [address] [id number] [place] [address]- 4208 Jul, [facility] [place] [facility] [address] [id number] [place] [address]- 0223 May, [facility] [place] [facility] [address] [id number] [place] [address]- 7275 May, [facility] [place] [facility] [address] [id number] [place] [address]- 3249 May, [facility] [place] [facility] [address] [id number] [place] [address]- 6930 May, [facility] [place] [facility] [address] [id number] [place] [address]- 1329 16 May, 2014 [facility] [place] [facility] [address] [id number] [place] [address]- 9182 16 May, 2014 [facility] [place] [facility] [address] [id number] [place] [address]- 4776 16 May, 2014 [facility] [place] [facility] [address] [id number] [place] [address]- 1155 16 May, 2014 [facility] [place] [facility] [address] [id number] [place] [address]- 6150 15 May, 2014 [facility] [place] [facility] [address] [id number] [place] [address]- 0883 15 May, 2014 [facility] [place] [facility] [address] [id number] [place] [address]- 9951 13 May, 2014 [facility] [place] [facility] [address] [id number] [place] [address]- 8447 13 May, 2014 [facility] [place] [facility] [address] [id number] [place] [address]- 3636 24 May, 2014 [facility] [place] [facility] [address] [id number] [place] [address]- 7868 24 May, 2014 [facility] [place] [facility] [address] [id number] [place] [address]- 3308 11 May, 2014 [facility] [place] [facility] [address] [id number] [place] [address]- 9123 10 May, 2014 [facility] [place] [facility] [address] [id number] [place] [address]- 0418 10 May, 2014 [facility] [place] [facility] [address] [id number] [place] [address]- 1947 19 Jan, 2014 [facility] [place] [facility] [address] [id number] [place] [address]- 3333 19 Jan, 2014 [facility] [place] [facility] [address] [id number] [place] [address]- 2819 16 Jan, 2014 [facility] [place] [facility] [address] [id number] [place] [address]- 7192 16 Jan, 2014 [facility] [address] [id number] [place] [address]- 1779 Jan, [facility] [place] [facility] [address] [id number] [place] [address]- 8654 Jan, [facility] [address] [id number] [place] [address]- 0724 Jan, [facility] [address] [id number] [place] [address]- 3749 December, [facility] [address] [id number] [place] [address]- 9559 December, [facility] [address] [id number] [place] [address]- 9021 December, [facility] [address] [id number] [place] [address] December, [facility] [address] [id number] [place] [address] Nov, [facility] [address] [id number] [place] [address] Nov, [facility] [address] [id number] [place] [address] Jul, [facility] [place] [facility] [address] [id number] [place] [address] 19 Jul, 2013 [facility] [address] [id number] [place] [address] Jul, [facility] [place] [facility] [address] [id number] [place] [address] 18 Jul, 2013 [facility] [place] [facility] [address] [id number] [place] [address] 15 May, 2013 [facility] [place] [facility] [address] [id number] [place] [address] Mar, [facility] [address] [id number] [place] [address] Mar, [facility] [place] [facility] [address] [id number] [place] [address] Mar, [facility] [place] [facility] [address] [id number] [place] [address] Nov, [facility] [place] [facility] [address] [id number] [place] [address] Aug, [facility] [place] [facility] [address] [id number] [place] [address] Jul, [facility] [place] [facility] [address] [id number] [place] [address] Jul, [facility] [place] [facility] [address] [id number] [place] [address] Jul, [facility] [place] [facility] [address] [id number] [place] [address] Jul, [facility] [place] [facility] [address] [id number] [place] [address] Jul, [facility] [place] [facility] [address] [id number] [place] [address] Jul, [facility] [place] [facility] [address] [id number] [place] [address] Feb, [facility] [place] [facility] [address] [id number] [place] [address] Feb, [facility] [place] [facility] [address] [id number] [place] [address] Feb, [facility] [place] [facility] [address] [id number] [place] [address] December, [facility] [place] [facility] [address] [id number] [place] [address] Aug, [facility] [place] [facility] [address] [id number] [address] Jul, [facility] [address] [facility] [id number] [place] [address] Jul, [facility] [address] [facility] [id number] [place] [address] Jul, IMMUNIZATIONS No Known Immunizations SOCIAL HISTORY [...]
--- OUTSIDE RECORDS SUMMARY | 2019-01-10 20:34 | XMS REPORT ---
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 Name Role Phone DOUG GREEN Unavailable PROBLEMS Type Condition ICD9-CM Code UHW00-TR Code Onset Dates Condition Status SNOMED Code Problem Anxiety F41.9 Active 55365695 Problem Essential hypertension I10 Active 31761174 Problem Lumbar disc disease M51.9 Active 505615064 Problem Scoliosis of lumbar spine, unspecified scoliosis type M41.9 Active [id number] ALLERGIES No Information ENCOUNTERS Encounter Location Date Diagnosis [facility] [id number] [place] [address] 95391- 9249 Mar, Lumbar disc disease M51.9 [facility] [id number] [place] [address] 48881- 9084 Feb, [facility] [id number] [place] [address] 46400- 1389 Feb, [facility] [id number] [place] [address] 38369- 4849 Feb, [facility] [id number] [place] [address] 23020- 9027 December, Essential hypertension I10 ; Lumbar disc disease M51.9 ; Chest pain, unspecified type R07.9 ; Anxiety F41.9 and Scoliosis of lumbar spine , unspecified scoliosis type M41.9 [facility] [id number] [place] [address] 13614- 1496 May, [facility] [id number] [place] [address] 91827- 3053 Jan, Other acute gastritis with hemorrhage K29.01 and Essential hypertension I10 [facility] [id number] [place] [address] 7693 Jan, [facility] [address] [id number] [place] [address]- 8662 Jul, [facility] [address] [id number] [place] [address] Jul, [facility] [address] [id number] [place] [address]- 7521 Jul, [facility] [address] [id number] [place] [address]- 6500 Feb, [facility] [address] [id number] [place] [address]- 6179 December, [facility] [address] [id number] [place] [address]- 4630 December, [facility] [address] [id number] [place] [address]- 5733 December, [facility] [address] [id number] [place] [address]- 3545 Nov, [facility] [address] [id number] [place] [address]- 2412 Nov, [facility] [address] [id number] [place] [address]- 9591 Oct, [facility] [address] [id number] [place] [address]- 0405 Oct, [facility] [address] [id number] [place] [address]- 3749 Jul, [facility] [place] [facility] [address] [id number] [place] 4510 Jul, [facility] [place] [facility] [address] [id number] [place] [address]- 7439 Jul, [facility] [place] [facility] [address] [id number] [place] [address]- 9628 Jul, [facility] [place] [facility] [address] [id number] [place] [address]- 1076 Jul, [facility] [place] [facility] [address] [id number] [place] [address]- 5933 Jul, [facility] [place] [facility] [address] [id number] [place] [address]- 6741 Jul, [facility] [place] [facility] [address] [id number] [place] [address]- 5802 Jul, [facility] [place] [facility] [address] [id number] [place] [address]- 9947 Jul, [facility] [place] [facility] [address] [id number] [place] [address]- 5488 Jul, [facility] [place] [facility] [address] [id number] [place] [address]- 6843 Jul, [facility] [place] [facility] [address] [id number] [place] [address]- 0498 Jul, [facility] [place] [facility] [address] [id number] [place] [address]- 8479 Jul, [facility] [place] [facility] [address] [id number] [place] [address]- 9292 Jul, [facility] [place] [facility] [address] [id number] [place] [address]- 4790 May, [facility] [place] [facility] [address] [id number] [place] [address]- 7712 May, [facility] [place] [facility] [address] [id number] [place] [address]- 6790 May, [facility] [place] [facility] [address] [id number] [place] [address]- 3196 May, [facility] [place] [facility] [address] [id number] [place] [address]- 9536 May, [facility] [place] [facility] [address] [id number] [place] [address]- 8843 16 May, 2014 [facility] [place] [facility] [address] [id number] [place] [address]- 0163 16 May, 2014 [facility] [place] [facility] [address] [id number] [place] [address]- 7911 16 May, 2014 [facility] [place] [facility] [address] [id number] [place] [address]- 7669 15 May, 2014 [facility] [place] [facility] [address] [id number] [place] [address]- 8307 15 May, 2014 [facility] [place] [facility] [address] [id number] [place] [address]- 0938 13 May, 2014 [facility] [place] [facility] [address] [id number] [place] [address]- 7959 13 May, 2014 [facility] [place] [facility] [address] [id number] [place] [address]- 0781 24 May, 2014 [facility] [place] [facility] [address] [id number] [place] [address]- 3906 24 May, 2013 [facility] [place] [facility] [address] [id number] [place] [address]- 3364 11 May, 2014 [facility] [place] [facility] [address] [facility] [id number] [place] [address]- 3807 10 May, 2014 [facility] [place] [facility] [address] [id number] [place] [address]- 8997 10 May, 2014 [facility] [place] [facility] [address] [id number] [place] [address]- 2166 19 Jan, 2014 [facility] [place] [facility] [address] [id number] [place] [address]- 9680 19 Jan, 2014 [facility] [place] [facility] [address] [facility] [id number] [place] [address]- 1975 16 Jan, 2014 [facility] [place] [facility] [address] [id number] [place] [address]- 5681 16 Jan, 2014 [facility] [place] [facility] [address] [id number] [place] [address]- 3344 Jan, [facility] [place] [facility] [address] [id number] [place] [address]- 9513 Jan, [facility] [place] [facility] [address] [id number] [place] [address]- 3433 Jan, [facility] [place] [facility] [address] [id number] [place] [address]- 6037 December, [facility] [place] [facility] [address] [id number] [place] [address]- 7588 December, [facility] [place] [facility] [address] [id number] [place] [address]- 4483 December, [facility] [place] [facility] [address] [id number] [place] [address]- 1665 December, [facility] [place] [facility] [address] [id number] [place] [address]- 0975 Nov, [facility] [place] [facility] [address] [id number] [place] [address]- 8983 Nov, [facility] [place] [facility] [address] [id number] [place] [address]- 3289 Jul, [facility] [place] [facility] [address] [id number] [place] [address]- 8491 Jul, [facility] [place] [facility] [address] [id number] [place] [address]- 3127 Jul, [facility] [place] [facility] [address] [id number] [place] [address]- 3934 18 Jul, 2013 [facility] [place] [facility] [address] [id number] [place] 7917 15 May, 2013 [facility] [place] [facility] [address] [id number] [place] [address]- 3825 Mar, [facility] [place] [facility] [address] [id number] [place] [address]- 1302 Mar, [facility] [address] [id number] [place] [address]- 4528 Mar, [facility] [place] [facility] [address] [id number] [place] [address]- 8557 Nov, [facility] [place] [facility] [address] [id number] [place] [address]- 9567 Aug, [facility] [place] [facility] [address] [id number] [place] [address]- 4081 Jul, [facility] [place] [facility] [address] [id number] [place] [address]- 3740 Jul, [facility] [place] [facility] [address] [id number] [place] [address]- 6896 Jul, [facility] [place] [facility] [address] [id number] [place] [address]- 2743 Jul, [facility] [place] [facility] [address] [id number] [place] [address]- 5807 Jul, [facility] [place] [facility] [address] [id number] [place] [address]- 5529 Jul, [facility] [place] [facility] [address] [id number] [place] [address]- 6758 Feb, [facility] [place] [facility] [address] [id number] [place] [address]- 3033 Feb, [facility] [place] [facility] [address] [id number] [place] [address]- 4613 Feb, [facility] [place] [facility] [address] [id number] [place] [address]- 3708 December, [facility] [place] [facility] [address] [id number] [place] [address]- 9800 Aug, [facility] [place] [facility] [address] [id number] [place] [address]- 4324 Jul, [facility] [place] [facility] [address] [facility] [id number] [place] [address]- 4623 Jul, [facility] [address] [facility] [id number] [place] [address]- 3536 Jul, IMMUNIZATIONS No Known Immunizations SOCIAL HISTORY Never Assessed REASON FOR VISIT Referral to Pain Management PLAN OF CARE VITAL SIGNS MEDICATIONS No Known Medications RESULTS No Results PROCEDURES No Known [...]
--- OUTSIDE RECORDS SUMMARY | 2019-01-10 20:34 | XMS REPORT ---
Author Author CORTEZ DYE Organization [facility] Address [address] [place] [address] Care Team Providers Care Wool Grader Name Role Phone CORTEZ DYE Unavailable PROBLEMS Type Condition ICD9-CM Code MOO92-EH Code Onset Dates Condition Status SNOMED Code Problem Anxiety F41.9 Active 59223255 Problem Essential hypertension I10 Active 38279242 Problem Lumbar disc disease M51.9 Active 948226186 Problem Scoliosis of lumbar spine, unspecified scoliosis type M41.9 Active 758202097 ALLERGIES No Information ENCOUNTERS Encounter Location Date Diagnosis [facility] [id number] [place] [address] 17201- 1107 Mar, Lumbar disc disease M51.9 [facility] [id number] [place] [address] 39818- 0849 Feb, [facility] [address] [address]- 8340 Feb, [facility] [id number] [place] [address] 86218- 7659 Feb, [facility] [id number] [place] [address] 92921- 0558 December, Essential hypertension I10 ; Lumbar disc disease M51.9 ; Chest pain, unspecified type R07.9 ; Anxiety F41.9 and Scoliosis of lumbar spine , unspecified scoliosis type M41.9 [facility] [id number] [place] [address] 77162- 6612 May, [facility] [id number] [place] [address] 54858- 1357 Jan, Other acute gastritis with hemorrhage K29.01 and Essential hypertension I10 [facility] [address] [id number] [place] [address]- 4559 Jan, [facility] [address] [id number] [place] [address]- 8894 Jul, [facility] [place] [facility] [address] [id number] [place] [address] Jul, [facility] [place] [facility] [address] [id number] [place] [address]- 0297 Jul, [facility] [place] [facility] [address] [id number] [place] [address]- 3829 Feb, [facility] [place] [facility] [address] [id number] [place] [address]- 5234 December, [facility] [place] [facility] [address] [id number] [place] [address]- 0632 December, [facility] [place] [facility] [address] [id number] [place] [address]- 1899 December, [facility] [address] [id number] [place] [address]- 8306 Nov, [facility] [place] [facility] [address] [id number] [place] [address]- 2363 Nov, [facility] [address] [facility] [id number] [place] [address]- 4566 Oct, [facility] [place] [facility] [address] [id number] [place] [address]- 1153 Oct, [facility] [place] [facility] [address] [id number] [place] [address]- 1724 Jul, [facility] [place] [facility] [address] [id number] [place] 1658 Jul, [facility] [place] [facility] [address] [id number] [place] [address]- 9733 Jul, [facility] [place] [facility] [address] [id number] [place] [address]- 5243 Jul, [facility] [place] [facility] [address] [id number] [place] [address]- 3493 Jul, [facility] [place] [facility] [address] [id number] [place] [address]- 2534 Jul, [facility] [place] [facility] [address] [id number] [place] [address]- 5365 Jul, [facility] [place] [facility] [address] [id number] [place] [address]- 9317 Jul, [facility] [place] [facility] [address] [id number] [place] [address]- 0439 Jul, [facility] [place] [facility] [address] [id number] [place] [address]- 6292 Jul, [facility] [place] [facility] [address] [id number] [place] [address]- 5661 Jul, [facility] [place] [facility] [address] [id number] [place] [address]- 5077 Jul, [facility] [place] [facility] [address] [id number] [place] [address]- 3649 Jul, [facility] [place] [facility] [address] [id number], [place] [address]- 4256 Jul, [facility] [place] [facility] [address] [id number] [address]- 4956 May, [facility] [place] [facility] [address] [id number], [place] [address]- 7917 May, [facility] [place] [facility] [address] [id number] [place] [address]- 4354 May, [facility] [place] [facility] [address] [id number] [place] [address]- 1085 May, [facility] [place] [facility] [address] [id number] [address]- 1295 May, [facility] [place] [facility] [address] [id number] [address]- 3766 16 May, 2014 [facility] [place] [facility] [address] [id number] [place] [address]- 1862 16 May, 2014 [facility] [place] [facility] [address] [id number] [place] [address]- 5559 16 May, 2014 [facility] [place] [facility] [address] [id number] [place] [address]- 5244 15 May, 2014 [facility] [place] [facility] [address] [id number] [place] [address]- 8530 15 May, 2014 [facility] [place] [facility] [address] [id number] [place] [address]- 6978 13 May, 2014 [facility] [place] [facility] [address] [id number] [place] [address]- 7279 13 May, 2014 [facility] [place] [facility] [address] [id number] [place] [address]- 9554 24 May, 2014 [facility] [place] [facility] [address] [id number] [place] [address]- 1476 24 May, 2014 [facility] [place] [facility] [address] [id number] [place] [address]- 3566 11 May, 2014 [facility] [place] [facility] [address] [id number] [place] [address]- 0534 10 May, 2014 [facility] [place] [facility] [address] [id number], [place] [address]- 1552 10 May, 2014 [facility] [place] [facility] [address] [id number][place] [address]- 4594 19 Jan, 2014 [facility] [place] [facility] [address] [id number] [place] [address]- 8583 19 Jan, 2014 [facility] [place] [facility] [address] [id number] [place] [address]- 5548 16 Jan, 2014 [facility] [place] [facility] [address] [id number] [place] [address]- 6531 16 Jan, 2014 [facility] [place] [facility] [address] [id number] [place] [address]- 3164 Jan, [facility] [place] [facility] [address] [id number] [place] [address]- 5594 Jan, [facility] [place] [facility] [address] [id number] [place] [address]- 5856 Jan, [facility] [place] [facility] [address] [id number] [place] [address]- 4162 December, [facility] [place] [facility] [address] [id number] [place] [address]- 8547 December, [facility] [place] [facility] [address] [id number] [place] [address]- 9894 December, [facility] [place] [facility] [address] [id number] [place] [address]- 8846 December, [facility] [place] [facility] [address] [id number] [place] [address]- 2495 Nov, [facility] [place] [facility] [address] [id number] [place] [address]- 6972 Nov, [facility] [place] [facility] [address] [id number] [place] [address]- 4370 Jul, [facility] [place] [facility] [address] [id number] [place] [address]- 8467 Jul, [facility] [place] [facility] [address] [id number] [place] [address]- 1789 Jul, [facility] [place] [facility] [address] [id number] [place] [address]- 4072 18 Jul, 2013 [facility] [place] [facility] [address] [id number] [place] [address]- 7637 May, [facility] [place] [facility] [address] [id number] [place] [address]- 0438 Mar, [facility] [place] [facility] [address] [id number] [place] [address]- 0168 Mar, [facility] [place] [facility] [address] [id number] [place] [address]- 2500 Mar, [facility] [place] [facility] [address] [id number] [place] [address]- 6359 Nov, [facility] [place] [facility] [address] [id number] [place] [address]- 4757 Aug, [facility] [place] [facility] [address] [id number] [place] [address]- 7456 Jul, [facility] [place] [facility] [address] [id number] [place] [address]- 2636 Jul, [facility] [place] [facility] [address] [id number] [place] [address]- 7467 Jul, [facility] [place] [facility] [address] [id number] [place] [address]- 2774 Jul, [facility] [place] [facility] [address] [id number] [place] [address]- 4164 Jul, [facility] [place] [facility] [address] [id number] [place] [address]- 2189 Jul, [facility] [place] [facility] [address] [id number] [place] [address]- 2188 Feb, [facility] [place] [facility] [address] [id number] [place] [address]- 9568 Feb, [facility] [place] [facility] [address] [id number], [place] [address]- 5167 Feb, [facility] [place] [facility] [address] [id number] [place] [address]- 4476 December, [facility] [place] [facility] [address] [id number] [place] [address]- 4104 Aug, [facility] [place] [facility] [address] [id number] [place] [address]- 7471 Jul, [facility] [place] [facility] [address] [facility] [id number] [place] [address]- 9708 Jul, [facility] [address] [facility] [id number] [place] [address]- 6840 Jul, IMMUNIZATIONS No Known Immunizations SOCIAL HISTORY Never Assessed REASON FOR VISIT Appointment PLAN OF CARE VITAL SIGNS MEDICATIONS No [...]
--- OUTSIDE RECORDS SUMMARY | 2019-01-10 20:34 | XMS REPORT ---
Author Author CRISTIAN WHITTEN Organization [employer] Address Unknown Phone Unavailable Care Team Providers Care Stringer Up Soldering Machine Name Role Phone CRISTIAN WHITTEN CP Unavailable Allergies No Known Allergies Problems Problem Type Condition Code Onset Dates Condition Status Problem Chest pain, unspecified 786.50 Active Problem Other and unspecified angina pectoris 413.9 Active Problem Shortness of breath 786.05 Active Problem Unspecified essential hypertension 401.9 Active Problem Pain in joint, ankle and foot 719.47 Active Problem Carpal tunnel syndrome 354.0 Active Problem Anxiety state, unspecified 300.00 Active Problem Loss of height 781.91 Active Problem Scoliosis (and kyphoscoliosis), idiopathic 737.30 Active Problem Hypoglycemia, unspecified 251.2 Active Problem Routine general medical examination at health care facility V70.0 Active Medications No Known Medications Results No Known Results Summary Purpose [employer] Submission
--- OUTSIDE RECORDS SUMMARY | 2019-01-10 20:34 | XMS REPORT ---
Author Author DOUG GREEN Organization [facility] Address [address] [place] [address] Care Team Providers Care Fish Bin Tender Name Role Phone DOUG GREEN Unavailable PROBLEMS Type Condition ICD9-CM Code AHE06-UX Code Onset Dates Condition Status SNOMED Code Problem Anxiety F41.9 Active 29407507 Problem Essential hypertension I10 Active 23047817 Problem Lumbar disc disease M51.9 Active 630407075 Problem Scoliosis of lumbar spine, unspecified scoliosis type M41.9 Active 586376318 ALLERGIES Substance Reaction Event Type Date Status Demerol hypotension and anaphylaxix Drug Allergy December, Active Codeine Sulfate itching and hives Drug Allergy December, Active ENCOUNTERS Encounter Location Date Diagnosis [place] [id number] [place] [address] 58806- 5125 Feb, [facility] [id number] [place] [address] 22353- 3899 Feb, [facility] [id number] [place] [address] 12441- 9228 Feb, [facility] [id number] [place] [address] 37728- 2843 December, Essential hypertension I10 ; Lumbar disc disease M51.9 ; Chest pain, unspecified type R07.9 ; Anxiety F41.9 and Scoliosis of lumbar spine , unspecified scoliosis type M41.9 [facility] [id number] [place] [address] 26910- 3894 May, [facility] [id number] [place] [address] 71728- 2174 Jan, Other acute gastritis with hemorrhage K29.01 and Essential hypertension I10 [facility] [id number] [place] [address] 74826- 8634 Jan, [facility] [place] [facility] [address] [id number] [place] [address]- 1575 Jul, [facility] [place] [facility] [address] [id number] [place] [address] Jul, [facility] [place] [facility] [address] [id number] [place] [address]- 3529 Jul, [facility] [place] [facility] [address] [id number] [place] [address]- 8582 Feb, [facility] [place] [facility] [address] [id number] [place] [address]- 5837 December, [facility] [place] [facility] [address] [id number] [place] [address]- 8202 December, [facility] [place] [facility] [address] [id number] [place] [address]- 1159 December, [facility] [place] [facility] [address] [id number] [place] [address]- 9730 Nov, [facility] [place] [facility] [address] [id number] [place] [address]- 9757 Nov, [facility] [place] [facility] [address] [id number] [place] [address]- 0510 Oct, [facility] [place] [facility] [address] [id number] [place] [address]- 6823 Oct, [facility] [place] [facility] [address] [id number] [place] [address]- 4099 Jul, [facility] [place] [facility] [address] [id number] [place] [address]- 9783 Jul, [facility] [place] [facility] [address] [id number] [place] [address]- 2162 Jul, [facility] [place] [facility] [address] [id number] [place] [address]- 0348 Jul, [facility] [place] [facility] [address] [id number] [place] [address]- 6465 Jul, [facility] [place] [facility] [address] [id number] [place] [address]- 3898 Jul, [facility] [place] [facility] [address] [id number] [place] [address]- 1743 Jul, [facility] [place] [facility] [address] [id number] [place] [address]- 0282 Jul, [facility] [place] [facility] [address] [id number] [place] [address]- 6794 Jul, [facility] [place] [facility] [address] [id number] [place] [address]- 1989 Jul, [facility] [place] [facility] [address] [id number] [place] [address]- 8364 Jul, [facility] [place] [facility] [address] [id number] [place] [address]- 6863 Jul, [facility] [place] [facility] [address] [id number] [place] [address]- 7762 Jul, [facility] [place] [facility] [address] [id number] [place] [address]- 8360 Jul, [facility] [place] [facility] [address] [id number] [place] [address]- 4654 May, [facility] [place] [facility] [address] [id number] [place] [address]- 8768 May, [facility] [place] [facility] [address] [id number] [place] [address]- 4680 May, [facility] [place] [facility] [address] [id number] [place] [address]- 0087 May, [facility] [place] [facility] [address] [id number] [place] [address]- 5136 May, [facility] [place] [facility] [address] [id number] [place] [address]- 3342 16 May, 2014 [facility] [place] [facility] [address] [id number] [place] [address]- 4502 16 May, 2014 [facility] [place] [facility] [address] [id number] [place] [address]- 2174 16 May, 2014 [facility] [place] [facility] [address] [id number] [place] [address]- 0246 15 May, 2014 [facility] [place] [facility] [address] [id number] [place] [address]- 0826 15 May, 2014 [facility] [place] [facility] [address] [id number] [place] [address]- 8682 13 May, 2014 [facility] [place] [facility] [address] [id number] [place] [address]- 6124 13 May, 2014 [facility] [place] [facility] [address] [id number] [place] [address]- 1409 24 May, 2014 [facility] [place] [facility] [address] [id number] [place] [address]- 0532 24 May, 2014 [facility] [place] [facility] [address] [id number] [place] [address]- 0452 11 May, 2014 [facility] [place] [facility] [address] [id number] [place] [address]- 7931 10 May, 2014 [facility] [place] [facility] [address] [id number], [place] [address]- 1268 10 May, 2014 [facility] [place] [facility] [address] [id number], [place] [address]- 0292 19 Jan, 2014 [facility] [place] [facility] [address] [id number] [place] [address]- 6558 19 Jan, 2014 [facility] [place] [facility] [address] [id number], [place] [address]- 4627 16 Jan, 2014 [facility] [place] [facility] [address] [id number], [place] [address]- 8885 16 Jan, 2014 [facility] [place] [facility] [address] [id number] [place] [address]- 4542 Jan, [facility] [address] [id number] [place] [address]- 7761 Jan, [facility] [place] [facility] [address] [id number] [place] [address]- 1665 Jan, [facility] [place] [facility] [address] [id number] [place] [address]- 4028 December, [facility] [place] [facility] [address] [id number] [place] [address]- 7929 December, [facility] [place] [facility] [address] [id number] [place] [address]- 9772 December, [facility] [place] [facility] [address] [id number] [place] [address]- 8200 December, [facility] [address] [id number] [place] [address]- 2115 Nov, [facility] [place] [facility] [address] [id number] [place] [address]- 9752 Nov, [facility] [place] [facility] [address] [id number] [place] [address]- 4583 Jul, [facility] [place] [facility] [address] [id number] [place] [address]- 1679 Jul, [facility] [place] [facility] [address] [id number] [place] [address]- 8847 Jul, [facility] [place] [facility] [address] [id number] [place] [address]- 3732 18 Jul, 2013 [facility] [place] [facility] [address] [id number] [place] [address]- 8724 15 May, 2013 [facility] [place] [facility] [address] [id number] [place] [address]- 5320 Mar, [facility] [place] [facility] [address] [id number] [place] [address]- 7974 Mar, [facility] [place] [facility] [address] [id number] [place] [address]- 7060 Mar, [facility] [place] [facility] [address] [id number] [place] [address]- 0493 Nov, [facility] [place] [facility] [address] [id number] [place] [address]- 0271 Aug, [facility] [place] [facility] [address] [id number] [place] [address]- 1407 Jul, [facility] [address] [id number] [place] [address]- 6977 Jul, [facility] [place] [facility] [address] [id number] [place] [address]- 1046 Jul, [facility] [place] [facility] [address] [id number] [place] [address]- 9916 Jul, [facility] [place] [facility] [address] [id number] [place] [address]- 6758 Jul, [facility] [place] [facility] [address] [id number] [place] [address]- 5888 Jul, [facility] [place] [facility] [address] [id number] [place] [address]- 4031 Feb, [facility] [place] [facility] [address] [id number] [place] [address]- 8866 Feb, [facility] [place] [facility] [address] [id number] [place] [address]- 2517 Feb, [facility] [place] [facility] [address] [id number] [place] [address]- 5755 December, [facility] [place] [facility] [address] [id number] [place] [address]- 6529 Aug, [facility] [place] [facility] [address] [id number] [place] [address]- 1355 Jul, [facility] [place] [facility] [address] [id number] [place] [address]- 1346 Jul, [facility] [address] [facility] [id number] [place] [address]- 2734 Jul, IMMUNIZATIONS No Known Immunizations SOCIAL HISTORY Never Assessed REASON FOR VISIT Establish Care WB-MA, PT had spinal fusion surgery in November 2017 PLAN OF CARE Activity Details Follow Up 4 Weeks Reason: VITAL SIGNS Height 58 in 2018-01-28 Weight 128.4 lbs 2018-01-28 Temperature 98.3 degrees Fahrenheit 2018-01-28 Heart Rate 54 bpm 2018-01-28 Respiratory Rate 18 2018-01-28 Oximetry on room air:97 % 2018-01-28 BMI 26.83 kg/m2 2018-01-28 Blood pressure systolic 106 mmHg 2018-01-28 Blood pressure diastolic 66 mmHg 2018-01-28 MEDICATIONS Medication Instructions Dosage Frequency Start Date End Date Duration Status Spironolactone 25 MG Orally Once a day 1 tablet 24h Active Furosemide 40 MG Orally Once a day 1 tablet 24h Active Oxycodone-Acetaminophen 10-325 MG Orally every 6 hrs as needed for pain 1 tablet as needed Active Aspirin 81 mg 1 tablet by Oral route 1 time per day Mar, Active Xanax 1 mg 1 tablet by Oral route 1 time per day Oct, Active Calcet Petites 200 mg calcium -250 unit 1 Tablet by Oral route 1 time per day May, Active Nitroglycerin 0.[address] 1 tablet by Sublingual route every 5 minutes for chest pain; Max 3 tabs in 15 min PRN Mar, 30 days Active RESULTS No Results PROCEDURES Procedure Date Ordered Result Body Site [facility] VISIT ESTABLISHED PATIENT January 28, 2018 INSTRUCTIONS MEDICATIONS ADMINISTERED No Known Medications [...]
--- OUTSIDE RECORDS SUMMARY | 2019-01-10 20:34 | XMS REPORT ---
Author Author DOUG GREEN Organization [facility] Address [address] [place] [address] Care Team Providers Care Test Center Manager Name Role Phone DOUG GREEN Unavailable PROBLEMS Type Condition ICD9-CM Code QQR89-WA Code Onset Dates Condition Status SNOMED Code Problem Anxiety F41.9 Active 03747540 Problem Essential hypertension I10 Active 59206529 Problem Lumbar disc disease M51.9 Active 690161201 Problem Scoliosis of lumbar spine, unspecified scoliosis type M41.9 Active 453484083 ALLERGIES No Information ENCOUNTERS Encounter Location Date Diagnosis [facility] [id number] [place] [address] 01633- 8086 Mar, Lumbar disc disease M51.9 [facility] [id number] [place] [address] 68964- 1065 Feb, [facility] [id number] [place] [address] 12491- 1428 Feb, [facility] [id number] [place] [address] 94080- 5916 Feb, [facility] [id number] [place] [address] 20529- 6046 December, Essential hypertension I10 ; Lumbar disc disease M51.9 ; Chest pain, unspecified type R07.9 ; Anxiety F41.9 and Scoliosis of lumbar spine , unspecified scoliosis type M41.9 [facility] [id number] [place] [address] 91475- 7928 May, [facility] [id number] [place] [address] 46339- 2280 Jan, Other acute gastritis with hemorrhage K29.01 and Essential hypertension I10 [facility] [id number] [address]- 6998 Jan, [facility] [address] [id number] [place] [address]- 3714 Jul, [facility] [address] [id number] [place] [address]155 Jul, [facility] [address] [id number] [place] [address]- 3283 Jul, [facility] [address] [id number] [place] [address]- 6116 Feb, [facility] [address] [id number] [place] [address]- 4744 December, [facility] [address] [id number] [place] [address]- 5774 December, [facility] [address] [id number] [place] [address]- 6380 December, [facility] [address] [id number] [place] [address]- 7069 Nov, [facility] [address] [id number] [place] [address]- 4219 Nov, [facility] [address] [id number] [place] [address]- 4483 Oct, [facility] [address] [id number] [place] [address]- 2934 Oct, [facility] [address] [id number] [place] [address]- 3181 Jul, [facility] [place] [facility] [address] [id number] [place]36 Jul, [facility] [place] [facility] [address] [id number] [place] [address]- 7173 Jul, [facility] [place] [facility] [address] [id number] [place] [address]- 3475 Jul, [facility] [place] [facility] [address] [id number] [place] [address]- 3158 Jul, [facility] [place] [facility] [address] [id number] [place] [address]- 2203 Jul, [facility] [place] [facility] [address] [id number] [place] [address]- 0599 Jul, [facility] [place] [facility] [address] [id number] [place] [address]- 9486 Jul, [facility] [place] [facility] [address] [id number] [place] [address]- 8599 Jul, [facility] [place] [facility] [address] [id number] [place] [address]- 6940 Jul, [facility] [place] [facility] [address] [id number] [place] [address]- 5097 Jul, [facility] [place] [facility] [address] [id number] [place] [address]- 8068 Jul, [facility] [place] [facility] [address] [id number] [place] [address]- 0912 Jul, [facility] [place] [facility] [address] [id number] [place] [address]- 1851 Jul, [facility] [place] [facility] [address] [id number] [place] [address]- 5748 May, [facility] [place] [facility] [address] [id number] [place] [address]- 9124 May, [facility] [place] [facility] [address] [id number] [place] [address]- 6283 May, [facility] [place] [facility] [address] [id number] [place] [address]- 2420 May, [facility] [place] [facility] [address] [id number] [place] [address]- 4172 May, [facility] [place] [facility] [address] [id number] [place] [address]- 7059 16 May, 2014 [facility] [place] [facility] [address] [id number] [place] [address]- 0014 16 May, 2014 [facility] [place] [facility] [address] [id number] [place] [address]- 8877 16 May, 2014 [facility] [place] [facility] [address] [id number] [place] [address]- 6281 15 May, 2014 [facility] [place] [facility] [address] [id number] [place] [address]- 2662 15 May, 2014 [facility] [place] [facility] [address] [id number] [place] [address]- 0377 13 May, 2014 [facility] [place] [facility] [address] [id number] [place] [address]- 9647 13 May, 2014 [facility] [place] [facility] [address] [id number] [address]- 5903 24 May, 2014 [facility] [place] [facility] [address] [id number] [place] [address]- 4480 24 May, 2013 [facility] [place] [facility] [address] [id number] [place] [address]- 3401 11 May, 2014 [facility] [place] [facility] [address] [facility] [id number] [place] [address]- 3275 10 May, 2014 [facility] [place] [facility] [address] [id number] [place] [address]- 7537 10 May, 2014 [facility] [place] [facility] [address] [id number] [address]- 9988 19 Jan, 2014 [facility] [place] [facility] [address] [id number] [place] [address]- 2289 19 Jan, 2014 [facility] [place] [facility] [address] [facility] [id number] [place] [address]- 7348 16 Jan, 2014 [facility] [place] [facility] [address] [id number] [address]- 5427 16 Jan, 2014 [facility] [place] [facility] [address] [id number] [place] [address]- 7455 Jan, [facility] [place] [facility] [address] [id number] [place] [address]- 0501 Jan, [facility] [place] [facility] [address] [id number] [place] [address]- 5483 Jan, [facility] [place] [facility] [address] [id number] [place] [address]- 0560 December, [facility] [place] [facility] [address] [id number] [place] [address]- 1008 December, [facility] [place] [facility] [address] [id number] [place] [address]- 6623 December, [facility] [place] [facility] [address] [id number] [place] [address]- 4540 December, [facility] [place] [facility] [address] [id number] [place] [address]- 4493 Nov, [facility] [place] [facility] [address] [id number] [place] [address]- 2742 Nov, [facility] [place] [facility] [address] [id number] [place] [address]- 9593 Jul, [facility] [place] [facility] [address] [id number] [place] [address]- 6129 Jul, [facility] [place] [facility] [address] [id number] [place] [address]- 7034 Jul, [facility] [place] [facility] [address] [id number] [place] [address]- 9659 18 Jul, 2013 [facility] [place] [facility] [address] [id number] [place] 3618 15 May, 2013 [facility] [place] [facility] [address] [id number] [place] [address]- 8926 Mar, [facility] [place] [facility] [address] [id number] [place] [address]- 3620 Mar, [facility] [address] [id number] [place] [address]- 7389 Mar, [facility] [place] [facility] [address] [id number] [place] [address]- 1219 Nov, [facility] [place] [facility] [address] [id number] [place] [address]- 1264 Aug, [facility] [place] [facility] [address] [id number] [place] [address]- 0859 Jul, [facility] [place] [facility] [address] [id number] [place] [address]- 6286 Jul, [facility] [place] [facility] [address] [id number] [place] [address]- 6076 Jul, [facility] [place] [facility] [address] [id number] [place] [address]- 8085 Jul, [facility] [place] [facility] [address] [id number] [place] [address] Jul, [facility] [place] [facility] [address] [id number] [place] [address] Jul, [facility] [place] [facility] [address] [id number] [place] [address] Feb, [facility] [place] [facility] [address] [id number] [place] [address] Feb, [facility] [place] [facility] [address] [id number] [address] Feb, [facility] [place] [facility] [address] [id number] [place] [address] December, [facility] [place] [facility] [address] [id number] [place] [address] Aug, [facility] [place] [facility] [address] [id number] [place] [address] Jul, [facility] [place] [facility] [address] [facility] [id number] [place] [address] Jul, [facility] [address] [facility] [id number] [place] [address] Jul, IMMUNIZATIONS No Known Immunizations SOCIAL HISTORY Never Assessed REASON FOR VISIT Controlled Med Refill PLAN OF CARE VITAL SIGNS MEDICATIONS Medication Instructions Dosage Frequency Start Date End Date Duration Status Oxycodone-Acetaminophen 10-325 MG Orally every 6 hrs 1 tablet as needed 6h Feb, 07 days Active RESULTS No Results PROCEDURES No Known [...]
--- OUTSIDE RECORDS SUMMARY | 2019-01-10 20:34 | XMS REPORT ---
Author Author LIBERTY VELARDE Organization [employer] Address Unknown Phone Unavailable Care Team Providers Care Rn Case Manager Hospice Name Role Phone LIBERTY VELARDE CP Unavailable Allergies No Known Allergies Problems [...] at health care facility V70.0 Active Medications Medication Code System Code Instructions Start Date End Date Status Dosage Acyclovir [facility] [id number] 200MG TAKE ONE CAPSULE BY MOUTH TWICE DAILY. Results No Known Results Summary Purpose [employer] Submission
--- OUTSIDE RECORDS SUMMARY | 2019-01-10 20:34 | XMS REPORT ---
Author Author LIBERTY VELARDE Organization [employer] Address Unknown Phone Unavailable Care Team Providers Care Line Up Worker Name Role Phone LIBERTY VELARDE CP Unavailable [...]
--- OUTSIDE RECORDS SUMMARY | 2019-01-10 20:35 | XMS REPORT | Continuity of Care Document ---
Author Author [facility] Organization [facility] Address [facility] [address] [place] [id number] Phone Unavailable Support Name Relationship Address Phone Cyrus Nair MD Caregiver [address] [place] [phone] ANAYELI HERRERA MD Caregiver [address] [place] [phone] TOMMY ESPINOSA Next Of Kin [address] [place] [address] Insurance Providers Payer Name Policy Number Subscriber Name Relationship Blue Cross/Blue Shield [id number] Tia Espinosa 17 Self / Same As Patient Advance Directives Directive Response Recorded Date/Time Advance Directives No 12/16/16 3:17pm Living Will No 12/16/16 3:17pm Health Care Proxy No 12/16/16 3:17pm Power of Medical Transcription Editor for Health Care No 12/16/16 3:17pm Organ, Tissue, or Eye Donor Y "organ" 12/16/16 3:17pm Do you have a signed organ donor card? No 10/15/15 9:13am Problems No problem information available. Medications Current Home Medications Medication Dose Units Route Directions Days/Qty Instructions Start Date Atenolol 50 Mg 50 Mg Oral Daily 10/18/15 Oxycodone Hcl/Acetaminophen 10-325 Mg 1 Tab 1 Tab Oral Every 6 Hrs As Needed For Pain 10/18/15 Acyclovir 200 Mg 400 Mg Oral Daily 10/18/15 Cyclobenzaprine Hcl (Flexeril*) 10 Mg 10 Mg Oral Daily 10/18/15 Alprazolam 1 Mg 1 Mg Oral Three Times Daily As Needed 10/18/15 Gabapentin 300 Mg 300 Mg Oral Twice A Day 01/14/16 Albuterol (Ventolin 17GM Hfa Inhaler*) 1 Puff 2 Puff Inhalation As Needed INHALE 2 PUFFS 01/14/16 [Nitrolingual 400MCG] 1 Tab Sublingual As Needed 12/16/16 Aspirin 81 Mg 81 Mg Oral Daily 12/16/16 Diazepam 5 Mg 5 Mg Oral Daily As Needed 12/16/16 Past Home Medications Medication Directions Ordered Status Aspirin 81 Mg Tablet.dr, 81 Mg Oral Daily 10/18/15 Discontinued Gabapentin 400 Mg Capsule, 400 Mg Oral Bedtime 10/18/15 Discontinued Spironolactone 25 Mg Tablet, 25 Mg Oral Daily 10/18/15 Discontinued Furosemide 40 Mg Tablet, 40 Mg Oral Daily 10/18/15 Discontinued Potassium Chloride 20 Meq Tab.prt.sr, 20 Meq Oral Daily 01/14/16 Discontinued Nitroglycerin 12 Gm [place], Unknown Dose Sublingual As Needed 01/14/16 Discontinued Social History Social History Problem Response Recorded Date/Time Smoking Status Never smoker 12/23/2016 7:19am Query Response Start Date Stop Date Smoking Status Never smoker Hospital Discharge Instructions Discharge Instructions Provider Instructions Make Appointment with: Dr. Nair [phone] Other: Call clinic for appt, afternoon of 01/06, for staple removal. Follow Up In: 1 Week Make Appointment with: Other: PCP for BP med adjustment Follow Up In: 2 Weeks Diet: Regular (No Restrictions) Smoking Cessation If you are a smoker, the following is recommended: Stop all tobacco use; for help quitting, please call [phone]. Notify Physician If: Fever Greater 100.5 F, Red or Draining Wound Additional Instructions: You were admitted for low back surgery. The surgery went well. After the surgery, you had some difficulty urinating. Due to your history of chronic urinary retention, you were started on Flomax and had marked improvement. Please continue to take the Flomax. For opiate-induced constipation, please take daily MiraLax and Senokot-S twice a day. This will help you have good bowel movements. Additionally, your blood pressure has been well-controlled without taking your lasix and spirinolactone. If her blood pressure increases to systolic blood pressure greater than 130, you may restart your Lasix and your potassium. Please follow up with your primary care physician for your blood pressure medications. Instructions from neurosurgery Rx left on chart: percocet 10/325 one po q 6 hr prn pain, #60 and baclofen 10 mg one tid prn muscle spasms, #90 no refills. Activity as tolerated. Wear TLSO when ambulatory. Incision/jose may be left open to air when no longer draining. May shower. No bending or twisting motions. No lifting greater than [address] while taking narcotic pain medication. On discharge pt should RTC at 2 weeks postop, afternoon of 01/06, for staple removal. Nursing Instructions Flu Vaccine Received this Visit: No Comment: FALL 2015 Pneumonia Vaccine Received this Visit: No Education #1 Methods: Discussion Response: Verbalize understanding Recipient: Patient Note: FOLLOW-UP ISRAEL ROWLEY December AT 2:00PM Patient specific education materials provided?: Yes Patient Request Electronic Discharge Instructions: No Patient Received Electronic Discharge Instructions: No Patient Health Summary printed/downloaded for the patient?: Yes Plan of Care Discharge Date 12/27/16 11:25am Disposition 01 HOME, GROUP HOME,ASSISTED LIVING Instructions/Education Provided Post-op Fusion - Dr. Nair Acute Wound Care (DC) Lumbar Spinal Fusion (DC) Prescriptions See Medication Section Care Plan and Goals See Discharge Instructions Section Functional Status Query Response Date Recorded Christofer Coma Scale Total 15 December 26, 2016 9:48pm Patient Behavior Appropriate Cooperative December 26, 2016 9:48pm Allergies, Adverse Reactions, Alerts Allergen Type Severity Reaction Status Last Updated Codeine Allergy Unknown ITCHING Active 12/16/16 Meperidine Allergy Unknown SEVERE DECRASED BLOOD PRESSURE Active 12/16/16 DISSOLVABLE SUTURES Allergy Unknown Active 12/16/16 Immunizations Name Given Type Hx Influenza Vaccination Y 2015 Historical Hx Pneumococcal Vaccination No Historical Vital Signs Acute Vital Signs Vital Response Date/Time Temperature (Fahrenheit) 97.8 degrees F (97.6 - 99.5) 12/27/2016 5:34am Temperature Source Temporal Artery 12/27/2016 5:34am Pulse Rate (adult) 101 bpm (60 - 90) 12/27/2016 5:34am Respiratory Rate 18 bpm (12 - 24) 12/27/2016 5:34am Blood Pressure 95/59 mm Hg 12/27/2016 5:34am O2 Sat by Pulse Oximetry 96 % (90 - 100) 12/27/2016 7:16am Oxygen Flow Rate 2.0 L/min 12/24/2016 8:34pm Pain Intensity 7 12/27/2016 7:45am Pain Intensity 9 12/24/2016 3:30pm Pain Location Body Site Modifier 12/26/2016 5:50am Pain Description 12/24/2016 9:20am Height 4 ft 11 in Weight 123 lb Body Mass Index 24.0 kg/m^2 Results Laboratory Results Test Name Result Units Flags Reference Collection Date/Time Result Date/ Time Comments White Blood Count 6.0 K/uL 4.8-10.8 12/27/2016 5:12/27/2016 6: 03am Red Blood Count 3.33 M/uL L 4.20-5.40 12/27/2016 5:12/27/2016 6: 03am Hemoglobin 10.0 gm/dL L 12.0-16.0 12/27/2016 5:12/27/2016 6:03am Hematocrit 31.5 % L 37.0-47.0 12/27/2016 5:12/27/2016 6:03am Mean Corpuscular Volume 94.7 fL 81.0-99.0 12/27/2016 5:12/27/2016 6:03am Mean Corpuscular Hemoglobin 30.0 pg 27.0-31.0 12/27/2016 5:2016 6:03am Mean Corpuscular Hemoglobin Concent 31.8 g/dL 30.0-37.0 12/27/2016 5: 12/27/2016 6:03am Red Cell Distribution Width 12.1 % 11.5-14.5 12/27/2016 5:2016 6:03am Platelet Count 302 K/uL 130-400 12/27/2016 5:12/27/2016 6:03am Mean Platelet Volume 7.5 fL 7.4-10.4 12/27/2016 5:12/27/2016 6: 03am Neutrophils (%) (Auto) 67.5 % 42.2-75.2 12/27/2016 5:12/27/2016 6: 03am Lymphocytes (%) (Auto) 24.8 % 20.5-51.1 12/27/2016 5:12/27/2016 6: 03am Monocytes (%) (Auto) 5.9 % 1.7-9.3 12/27/2016 5:12/27/2016 6:03am Eosinophils (%) (Auto) 1.6 % 0-3 12/27/2016 5:3012/27/2016 6:03am Basophils (%) (Auto) 0.2 % 0.0-1.0 12/27/2016 5:3012/27/2016 6:03am Neutrophils # (Auto) 4.1 K/uL 2.0-6.9 12/27/2016 5:3012/27/2016 6: 03am Lymphocytes # (Auto) 1.5 K/uL 1.2-3.4 12/27/2016 5:3012/27/2016 6: 03am Monocytes # (Auto) 0.4 K/uL 0.1-0.6 12/27/2016 5:3012/27/2016 6: 03am Eosinophils # (Auto) 0.1 K/uL 0.0-0.7 12/27/2016 5:3012/27/2016 6: 03am Basophils # (Auto) 0.0 K/uL 0.0-0.2 12/27/2016 5:3012/27/2016 6: 03am Reticulocyte Count,Calculated 1.5 % 1-2 12/26/2016 5:00pm 12/26/2016 5: 10pm Absolute Reticulocyte Count 52.4 K/uL 25-85 12/26/2016 5:00pm 2016 5:10pm Random Glucose 88 mg/dL 70-110 12/27/2016 5:3012/27/2016 6:23am Blood Urea Nitrogen 9 mg/dL 7-18 12/27/2016 5:3012/27/2016 6:23am Creatinine 0.6 mg/dL 0.55-1.02 12/27/2016 5:3012/27/2016 6:23am Sodium Level 144 mEq/L 136-145 12/27/2016 5:3012/27/2016 6:23am Potassium Level 4.2 mEq/L 3.5-5.0 12/27/2016 5:3012/27/2016 6:23am Chloride Level 108 mEq/L H 98-107 12/27/2016 5:3012/27/2016 6:23am Carbon Dioxide Level 28.1 mEq/L 21-32 12/27/2016 5:3012/27/2016 6: 23am Iron Level 14 ug/dL L 35-150 12/26/2016 5:00pm 12/26/2016 5:48pm Iron & TIBC Profile 137 ug/dL L 260-445 12/26/2016 5:00pm 12/26/2016 5: 48pm Calcium Level 8.4 mg/dL L 8.8-10.5 12/27/2016 5:30am 12/27/2016 6:23am Phosphorus Level 4.1 mg/dL 2.7-4.5 12/27/2016 5:30am 12/27/2016 6:23am Magnesium Level 2.1 mg/dL 1.8-2.4 12/27/2016 5:30am 12/27/2016 6:23am Albumin 2.0 gm/dL L 3.4-5.0 12/27/2016 5:30am 12/27/2016 6:23am Total Alkaline Phosphatase 61 U/L 46-116 12/27/2016 5:30am 12/27/2016 6 :23am Lactate Dehydrogenase 278 U/L H 81-234 12/26/2016 5:00pm 12/26/2016 5: 57pm Percent Iron Saturation 10 % L 20-50 12/26/2016 5:00pm 12/26/2016 5: 48pm Ferritin 378.0 ng/mL H 3.0-244 12/26/2016 5:00pm 12/26/2016 5:57pm Urine Color YELLOW YELLOW 12/26/2016 2:39pm 12/26/2016 3:03pm Urine Appearance CLEAR CLEAR 12/26/2016 2:39pm 12/26/2016 3:03pm Urine Glucose (UA) NEGATIVE mg/dL NEGATIVE 12/26/2016 2:39pm 2016 3:03pm Urine Bilirubin NEGATIVE NEGATIVE 12/26/2016 2:39pm 12/26/2016 3: 03pm Urine Ketones NEGATIVE mg/dL NEGATIVE 12/26/2016 2:39pm 12/26/2016 3: 03pm Urine Specific [place] 1.010 1.010-1.025 12/26/2016 2:39pm 2016 3:03pm Urine Occult Blood 2+ (Moderate) H NEGATIVE 12/26/2016 2:39pm 2016 3:03pm URINE CULTURE ORDERED PER MEDICAL STAFF-APPROVED PROTOCOL FOR LAB. Urine pH 8.0 5.0-8.0 12/26/2016 2:39pm 12/26/2016 3:03pm Urine Protein NEGATIVE mg/dL NEGATIVE 12/26/2016 2:39pm 12/26/2016 3: 03pm Urine Urobilinogen 0.2 mg/dL E.U./dL 0.2-1.0 12/26/2016 2:39pm 2016 3:03pm Urine Nitrate NEGATIVE NEGATIVE 12/26/2016 2:39pm 12/26/2016 3:03pm Urine Leukocyte Esterase NEGATIVE NEGATIVE 12/26/2016 2:39pm 2016 3:03pm Urine RBC 5-9 /hpf H 0 12/26/2016 2:39pm 12/26/2016 3:07pm Urine WBC 1-2 /hpf 0-4 12/26/2016 2:39pm 12/26/2016 3:07pm Urine Squamous Epithelial Cells NEGATIVE /hpf 0-1 12/26/2016 2:39pm 3:07pm Urine Transitional Epithelial Cells 0-1 /hpf 0 12/23/2016 7:59am 2016 9:32pm Urine Renal Epithelial Cells 0-1 /hpf 12/23/2016 7:59am 12/23/2016 9: 32pm Urine Bacteria 1+ H NEGATIVE 12/26/2016 2:39pm 12/26/2016 3:07pm Urine Hyaline Casts 100+ /lpf H 0 12/23/2016 7:59am 12/23/2016 9:32pm Urine Coarse Granular Casts 10-20 /lpf 0 12/23/2016 7:59am 12/23/2016 9 :32pm Urine Mucus TRACE H NEGATIVE 12/26/2016 2:39pm 12/26/2016 3:07pm Glomerular Filtration Rate Calc 111.6 mL/min 12/27/2016 5:30am 2016 6:23am Microbiology Results Procedure Source Result Collection Date/Time Result Date/Time Urine Culture Urine,Catheterized NO GROWTH AFTER 48 HOURS 12/25/2016 4:16pm 12/26/2016 11:53am Urine Culture Urine,Random NO GROWTH AFTER 24 HOURS 12/26/2016 2:39pm 10:01am Procedures Procedure Status Date Provider(s) Posterior fusion of lumbar spine with laminectomy Completed 12/23/16 Nair, Cyrus CHILDERS X-ray of lumbar spine, single view Completed 12/23/16 Nair,Cyrus CHILDERS Flu-W/Wo Pin.(In Surg) Active 12/23/16 Nair,Cyrus CHILDERS Portable x-ray of chest Active 12/24/16 ANAYELI HERRERA MD Encounters Encounter Location Arrival/Admit Date Discharge/Depart Date Attending Provider Discharged [facility]patient [facility] 12/23/16 5:25am 12/27/16 11:25am ANAYELI HERRERA MD Registered [facility] 12/22/16 6:08pm Nair, Cyrus CHILDERS
--- OUTSIDE RECORDS SUMMARY | 2019-01-10 20:35 | XMS REPORT | Continuity of Care Document ---
Author Organization Unknown Address Unknown Allergies Active Description Code Type Severity Reaction Onset Reported/Identified Relationship to Patient Clinical Status Yes codeine Drug Allergy N/A N/A 03/06/2011 Yes Demerol Drug Allergy N/A N/A 03/06/2011 Yes codeine Drug Allergy 03/06/2011 Yes Demerol Drug Allergy 03/06/2011 Yes codeine [id number] Drug Allergy Unknown N/A 04/21/2013 Yes meperidine [id number] Drug Allergy Unknown N/A 04/21/2013 Medications There is no data. Problems Date Dx Coded Attending Type Code Diagnosis Diagnosed By 03/06/2011 327.23 OBSTRUCTIVE SLEEP APNEA (ADULT) (PEDIATRIC) 03/06/2011 401.1 ESSENTIAL HYPERTENSION BENIGN 03/06/2011 780.79 fatigue 03/06/2011 PRACHI DE LA GARZA LIBERTY S 327.23 OBSTRUCTIVE SLEEP APNEA (ADULT) (PEDIATRIC) 03/06/2011 PRACHI DE LA GARZA LIBERTY S 401.1 ESSENTIAL HYPERTENSION BENIGN 03/06/2011 PRACHI DE LA GARZA LIBERTY S 780.79 fatigue 03/06/2011 327.23 OBSTRUCTIVE SLEEP APNEA (ADULT) (PEDIATRIC) 03/06/2011 401.1 ESSENTIAL HYPERTENSION BENIGN 03/06/2011 780.79 fatigue 03/06/2011 327.23 OBSTRUCTIVE SLEEP APNEA (ADULT) (PEDIATRIC) 03/06/2011 401.1 ESSENTIAL HYPERTENSION BENIGN 03/06/2011 780.79 fatigue 03/06/2011 KIRBY DOSANDRAA K 327.23 OBSTRUCTIVE SLEEP APNEA (ADULT) (PEDIATRIC) 03/06/2011 KIRBY DOSANDRAA K 401.1 ESSENTIAL HYPERTENSION BENIGN 03/06/2011 KIRBY DO BRAD K 780.79 fatigue 03/06/2011 PRACHI OSULLIVANN, LIBERTY S 327.23 OBSTRUCTIVE SLEEP APNEA (ADULT) (PEDIATRIC) 03/06/2011 PRACHI DE LA GARZA LIBERTY S 401.1 ESSENTIAL HYPERTENSION BENIGN 03/06/2011 PRACHI DE LA GARZA LIBERTY S 780.79 fatigue 03/06/2011 PRACHI AML ANALYST, LIBERTY S 327.23 OBSTRUCTIVE SLEEP APNEA (ADULT) (PEDIATRIC) 03/06/2011 PRACHI AML ANALYST, LIBERTY S 401.1 ESSENTIAL HYPERTENSION BENIGN 03/06/2011 PRACHI AML ANALYST, LIBERTY S 780.79 FATIGUE 03/06/2011 PRACHI AML ANALYST, LIBERTY S 327.23 OBSTRUCTIVE SLEEP APNEA (ADULT) (PEDIATRIC) 03/06/2011 PRACHI AML ANALYST, LIBERTY S 401.1 ESSENTIAL HYPERTENSION BENIGN 03/06/2011 PRACHI AML ANALYST, LIBERTY S 780.79 FATIGUE 03/06/2011 PRACHI AML ANALYST, LIBERTY S 327.23 OBSTRUCTIVE SLEEP APNEA (ADULT) (PEDIATRIC) 03/06/2011 PRACHI AML ANALYST, LIBERTY S 401.1 ESSENTIAL HYPERTENSION BENIGN 03/06/2011 PRACHI AML ANALYST, LIBERTY S 780.79 FATIGUE 03/06/2011 PRACHI AML ANALYST, LIBERTY S 327.23 OBSTRUCTIVE SLEEP APNEA (ADULT) (PEDIATRIC) 03/06/2011 PRACHI AML ANALYST, LIBERTY S 401.1 ESSENTIAL HYPERTENSION BENIGN 03/06/2011 PRACHI AML ANALYST, LIBERTY S 780.79 FATIGUE 08/07/2011 780.8 excessive sweating 08/07/2011 783.1 ABNORMAL WEIGHT GAIN 08/07/2011 PRACHI AML ANALYST, LIBERYT S 780.8 excessive sweating 08/07/2011 PRACHI AML ANALYST, LIBERTY S 783.1 ABNORMAL WEIGHT GAIN 08/07/2011 780.8 excessive sweating 08/07/2011 783.1 ABNORMAL WEIGHT GAIN 08/07/2011 780.8 excessive sweating 08/07/2011 783.1 ABNORMAL WEIGHT GAIN 08/07/2011 KIRBY DO, BRAD K 780.8 excessive sweating 08/07/2011 KIRBY DO, BRAD K 783.1 ABNORMAL WEIGHT GAIN 08/07/2011 PRACHI AML ANALYST, LIBERTY S 780.8 excessive sweating 08/07/2011 PRACHI AML ANALYST, LIBERTY S 783.1 ABNORMAL WEIGHT GAIN 08/07/2011 PRACHI AML ANALYST, LIBERTY S 780.8 EXCESSIVE SWEATING 08/07/2011 PRACHI AML ANALYST, LIBERTY S 783.1 ABNORMAL WEIGHT GAIN 08/07/2011 ARNOLDO VELARDE APRNNDA S 780.8 EXCESSIVE SWEATING 08/07/2011 ARNOLDO VELARDE APRNNDA S 783.1 ABNORMAL WEIGHT GAIN 08/07/2011 ARNOLDO VELARDE APRNNDA S 780.8 EXCESSIVE SWEATING 08/07/2011 ARNOLDO VELARDE APRNNDA S 783.1 ABNORMAL WEIGHT GAIN 08/07/2011 ARNOLDO VELARDE APRNNDA S 780.8 EXCESSIVE SWEATING 08/07/2011 ARNOLDO VELARDE APRNNDA S 783.1 ABNORMAL WEIGHT GAIN 03/11/2012 V70.0 EXAM - ROUTINE H&P 03/11/2012 JONNIE VELARDE APRNA S V70.0 EXAM - ROUTINE H&P 03/11/2012 V70.0 EXAM - ROUTINE H&P 03/11/2012 V70.0 EXAM - ROUTINE H&P 03/11/2012 BRAD KIRBY DO K V70.0 EXAM - ROUTINE H&P 03/11/2012 JONNIE VELARDE APRNA S V70.0 EXAM - ROUTINE H&P 03/11/2012 JONNIE VELARDE APRNA S V70.0 EXAM - ROUTINE H&P 03/11/2012 JONNIE VELARDE APRNA S V70.0 EXAM - ROUTINE H&P 03/11/2012 JONNIE VELARDE APRNA S V70.0 EXAM - ROUTINE H&P 03/11/2012 JONNIE VELARDE APRNA S V70.0 EXAM - ROUTINE H&P 08/05/2012 JONNIE VELARDE APRNA S 300.00 ANXIETY STATE UNSPECIFIED 08/05/2012 300.00 ANXIETY STATE UNSPECIFIED 08/05/2012 300.00 ANXIETY STATE UNSPECIFIED 08/05/2012 KIRBY DOBRAD K 300.00 ANXIETY STATE UNSPECIFIED 08/05/2012 JONNIE VELARDE APRNA S 300.00 ANXIETY STATE UNSPECIFIED 08/05/2012 JONNIE VELARDE APRNA S 300.00 ANXIETY STATE UNSPECIFIED 08/05/2012 JONNIE VELARDE APRNA S 300.00 ANXIETY STATE UNSPECIFIED 08/05/2012 JONNIE VELARDE APRNA S 300.00 ANXIETY STATE UNSPECIFIED 08/05/2012 PRACHI AML ANALYST, LIBERTY S 300.00 ANXIETY STATE UNSPECIFIED 04/18/2013 413.9 ANGINA NOS 04/18/2013 413.9 ANGINA NOS 04/18/2013 KIRBY DO, BRAD K 413.9 ANGINA NOS 04/18/2013 PRACHI AML ANALYST, LIBERTY S 413.9 ANGINA NOS 04/18/2013 PRACHI AML ANALYST, LIBERTY S 413.9 ANGINA NOS 04/18/2013 PRACHI AML ANALYST, LIBERTY S 413.9 ANGINA NOS 04/18/2013 PRACHI AML ANALYST, LIBERTY S 413.9 ANGINA NOS 04/18/2013 PRACHI AML ANALYST, LIBERTY S 413.9 ANGINA NOS 04/20/2013 401.9 HYPERTENSION, UNSPECIFIED ESSENTIAL 04/20/2013 786.05 SHORTNESS OF BREATH 04/20/2013 786.50 CHEST PAIN 04/20/2013 KIRBY DO, BRAD K 401.9 HYPERTENSION, UNSPECIFIED ESSENTIAL 04/20/2013 KIRBY DO, BRAD K 786.05 SHORTNESS OF BREATH 04/20/2013 KIRBY DO, BRAD K 786.50 CHEST PAIN 04/20/2013 PRACHI AML ANALYST, LIBERTY S 401.9 HYPERTENSION, UNSPECIFIED ESSENTIAL 04/20/2013 PRACHI AML ANALYST, LIBERTY S 786.05 SHORTNESS OF BREATH 04/20/2013 PRACHI AML ANALYST, LIBERTY S 786.50 CHEST PAIN 04/20/2013 PRACHI AML ANALYST, LIBERTY S 401.9 HYPERTENSION, UNSPECIFIED ESSENTIAL 04/20/2013 PRACHI AML ANALYST, LIBERTY S 786.05 SHORTNESS OF BREATH 04/20/2013 PRACHI AML ANALYST, LIBERTY S 786.50 CHEST PAIN 04/20/2013 PRACHI AML ANALYST, LIBERTY S 401.9 HYPERTENSION, UNSPECIFIED ESSENTIAL 04/20/2013 PRACHI AML ANALYST, LIBERTY S 786.05 SHORTNESS OF BREATH 04/20/2013 PRACHI AML ANALYST, LIBERTY S 786.50 CHEST PAIN 04/20/2013 PRACHI AML ANALYST, LIBERTY S 401.9 HYPERTENSION, UNSPECIFIED ESSENTIAL 04/20/2013 PRACHI AML ANALYST, LIBERTY S 786.05 SHORTNESS OF BREATH 04/20/2013 PRACHI AML ANALYST, LIBERTY S 786.50 CHEST PAIN 04/20/2013 PRACHI AML ANALYST, LIBERTY S 401.9 HYPERTENSION, UNSPECIFIED ESSENTIAL 04/20/2013 PRACHI AML ANALYST, LIBERTY S 786.05 SHORTNESS OF BREATH 04/20/2013 PRACHI AML ANALYST, LIBERTY S 786.50 CHEST PAIN 04/21/2013 ALYSSA CHILDERS [facility] CCDS Ot 401.9 04/21/2013 ALYSSA CHILDERS [facility] CCDS Ot 528.9 04/21/2013 ALYSSA CHILDERS [facility] CCD[facility] Ot 786.59 04/21/2013 ALYSSA CHILDERS [facility] CCD[facility] Ot V58.69 02/06/2014 PRACHI AML ANALYST, LIBERTY S 354.0 CARPAL TUNNEL SYNDROME 02/06/2014 PRACHI AML ANALYST, LIBERTY S 719.47 PAIN- FOOT 02/06/2014 PRACHI AML ANALYST, LIBERTY S 354.0 CARPAL TUNNEL SYNDROME 02/06/2014 PRACHI AML ANALYST, LIBERTY S 719.47 PAIN- FOOT 02/06/2014 PRACHI AML ANALYST, LIBERTY S 354.0 CARPAL TUNNEL SYNDROME 02/06/2014 PRACHI AML ANALYST, LIBERTY S 719.47 PAIN- FOOT 02/06/2014 PRACHI AML ANALYST, LIBERTY S 354.0 CARPAL TUNNEL SYNDROME 02/06/2014 PRACHI AML ANALYST, LIBERTY S 719.47 PAIN- FOOT 02/06/2014 PRACHI AML ANALYST, LIBERTY S 354.0 CARPAL TUNNEL SYNDROME 02/06/2014 PRACHI AML ANALYST, LIBERTY S 719.47 PAIN- FOOT 05/10/2014 PRACHI AML ANALYST, LIBERTY S 251.2 HYPOGLYCEMIA 05/10/2014 PARCHI AML ANALYST, LIBERTY S 251.2 HYPOGLYCEMIA 05/10/2014 PRACHI AML ANALYST, LIBERTY S 251.2 HYPOGLYCEMIA 05/10/2014 PRACHI AML ANALYST, LIBERTY S 251.2 HYPOGLYCEMIA 06/12/2014 PRACHI AML ANALYST, LIBERTY S 781.91 LOSS OF HEIGHT 06/12/2014 PRACHI AML ANALYST, LIBERTY S 781.91 LOSS OF HEIGHT 06/12/2014 LIBERTY VELARDE APRN S 781.91 LOSS OF HEIGHT 06/14/2014 JONNIE VELARDE APRNA S 737.30 SCOLIOSIS (AND KYPHOSCOLIOSIS) IDIOPATHIC 06/14/2014 PRACHI AML ANALYSTJONNIE SoodA S 737.30 SCOLIOSIS (AND KYPHOSCOLIOSIS) IDIOPATHIC 06/14/2014 PRACHI AML ANALYSTJONNIE SoodA S 737.30 SCOLIOSIS (AND KYPHOSCOLIOSIS) IDIOPATHIC 07/14/2014 LIBERTY VELARDE ACCOUNT EXECUTIVE Ot 722.52 07/14/2014 JONNIE VELARDEA ACCOUNT EXECUTIVE Ot 737.30 07/26/2014 JONNIE VELARDEA ACCOUNT EXECUTIVE Ot 722.52 07/26/2014 JONNIE VELARDEA ACCOUNT EXECUTIVE Ot 737.30 10/03/2014 LIBERTY VELARDE ACCOUNT EXECUTIVE Ot 722.52 10/03/2014 LIBERTY VELARDE ACCOUNT EXECUTIVE Ot 737.30 10/04/2014 MAE SIDDIQI DO Ot 723.0 12/20/2014 LIBERTY VELARDE ACCOUNT EXECUTIVE Ot 722.52 12/20/2014 LIBERTY VELARDE ACCOUNT EXECUTIVE Ot 737.30 12/20/2014 MAE SIDDIQI DO Ot 723.0 02/15/2015 MAE SIDDIQI DO Ot 723.0 09/04/2015 URBANO CHILDERS, RAMONA [place] Ot N64.52 01/01/2019 LIBERTY VELARDE ACCOUNT EXECUTIVE Ot 722.52 LUMB/LUMBOSAC DISC DEGEN 01/01/2019 LIBERTY VELARDE ACCOUNT EXECUTIVE Ot 737.30 IDIOPATHIC SCOLIOSIS 01/01/2019 MAE SIDDIQI DO Ot 723.0 CERVICAL SPINAL STENOSIS 01/04/2019 DOUG SNEED DO Ot B34.9 VIRAL INFECTION, UNSPECIFIED 01/04/2019 DOUG SNEED DO Ot I50.30 UNSPECIFIED DIASTOLIC (CONGESTIVE) HEART 01/04/2019 DOUG SNEED DO Ot R06.02 SHORTNESS OF BREATH 01/04/2019 DOUG SNEED DO Ot Z79.82 PLUGGER MAN (CURRENT) USE OF ASPIRIN 01/04/2019 DOUG SNEED DO Ot Z88.5 ALLERGY STATUS TO NARCOTIC AGENT STATUS 01/04/2019 DOUG SNEED DO Ot Z88.8 ALLERGY STATUS TO OTH DRUG/MEDS/BIOL SUB 01/04/2019 NEDRA SWANSON DOUG Olivier Ot Z95.9 PRESENCE OF CARDIAC AND VASCULAR IMPLANT Procedures Code Description [place] [address] ROUTINE VENIPUNCTURE 08/05/2012 16379 CBC 08/05/2012 49983 LIPID PANEL 08/05/2012 53861 CMP 08/05/2012 [id number] GFR CALC (RESULT ONLY) 08/05/2012 44315 TSH 08/06/2012 67786 EKG, TRACING (IN-HOUSE) 04/18/2013 11721 ROUTINE VENIPUNCTURE 04/19/2013 18298 CBC 04/19/2013 71999 MAGNESIUM 04/19/2013 36885 LIPID PANEL 04/19/2013 18038 CMP 04/19/2013 [id number] GFR CALC (RESULT ONLY) 04/19/2013 CARDIOLOG NAMRATA SHAH 04/19/2013 88900 TSH 04/19/2013 23372 HEART CATH 04/21/2013 43870 XRAY FOOT RIGHT 2 VIEWS 02/06/2014 47461 ROUTINE VENIPUNCTURE 05/10/2014 39217 A1C (IN-HOUSE) 05/10/2014 72093 CBC 05/10/2014 32903 CMP 05/10/2014 53957 LIPID PANEL 05/10/2014 [id number] GFR CALC (RESULT ONLY) 05/10/2014 94173 INSULIN LEVEL 05/11/2014 60602 XRAY CERVICAL SPINE, 2 OR 3 VIEWS 06/12/2014 71169 XRAY THORACIC SPINE 3 VIEWS 06/12/2014 48827 XRAY LUMBAR SPINE 2 OR 3 VIEWS 06/12/2014 18370 ROUTINE VENIPUNCTURE 06/12/2014 68000 BONE MINERAL DENSITY, HEEL US (IN HOUSE) 06/12/2014 5951101 GFR CALC (RESULT ONLY) 06/12/2014 98250 CMP 06/12/2014 48975 XRAY SCOLIOSIS SERIES 06/19/2014 08337 MRI SPINE (THORACIC) W/O CONTRAST 06/22/2014 74260 MRI SPINE (LUMBAR) W/O CONTRAST 06/22/2014 Results Test Result Range PDM - 09 PANEL (PROFILE 1) - 12/08/18 11:07 Creatinine 12.6 mg/dL > or=20.0 pH 6.78 4.5 - 9.0 Oxidant NEGATIVE mcg/mL <200 Amphetamines NEGATIVE ng/mL <500 medMATCH Amphetamines CONSISTENT NRG Benzodiazepines NEGATIVE CONFIRMED ng/mL <100 Marijuana Metabolite NEGATIVE ng/mL <20 medMATCH Marijuana Metab CONSISTENT NRG Cocaine Metabolite NEGATIVE ng/mL <150 medMATCH Cocaine Metab CONSISTENT NRG Opiates NEGATIVE ng/mL <100 medMATCH Opiates CONSISTENT NRG Oxycodone NEGATIVE ng/mL <100 medMATCH Oxycodone CONSISTENT NRG COMMENT NRG Alphahydroxyalprazolam NEGATIVE ng/mL <25 medMATCH aOH alprazolam CONSISTENT NRG Alphahydroxymidazolam NEGATIVE ng/mL <50 medMATCH aOH midazolam CONSISTENT NRG Alphahydroxytriazolam NEGATIVE ng/mL <50 medMATCH aOH triazolam CONSISTENT NRG Aminoclonazepam NEGATIVE ng/mL <25 medMATCH Aminoclonazepam CONSISTENT NRG Hydroxyethylflurazepam NEGATIVE ng/mL <50 medMATCH [place],Et flurazepam CONSISTENT NRG Lorazepam NEGATIVE ng/mL <50 medMATCH Lorazepam CONSISTENT NRG Nordiazepam NEGATIVE ng/mL <50 medMATCH Nordiazepam CONSISTENT NRG Oxazepam NEGATIVE ng/mL <50 medMATCH Oxazepam CONSISTENT NRG Temazepam NEGATIVE ng/mL <50 medMATCH Temazepam CONSISTENT NRG Specific [place] 1.007 > or=1.003 Barbiturates NEGATIVE ng/mL <300 medMATCH Barbiturates CONSISTENT NRG Methadone Metabolite NEGATIVE ng/mL <100 medMATCH Methadone Metab CONSISTENT NRG Phencyclidine NEGATIVE ng/mL <25 medMATCH Phencyclidine CONSISTENT NRG Complete blood count (CBC) with automated white blood cell (WBC) differential - 01/01/19 09:27 Blood leukocytes automated count (number/volume) 6.1 10*3/uL 4.3-11.0 Blood erythrocytes automated count (number/volume) 4.40 10*6/uL 4.35-5.85 Venous blood hemoglobin measurement (mass/volume) 13.5 g/dL 11.5-16.0 Blood hematocrit (volume fraction) 40 % 35-52 Automated erythrocyte mean corpuscular volume 90 [foz_us] 80-99 Automated erythrocyte mean corpuscular hemoglobin (mass per erythrocyte) 31 pg 25-34 Automated erythrocyte mean corpuscular hemoglobin concentration measurement ( mass/volume) 34 g/dL 32-36 Automated erythrocyte distribution width ratio 12.4 % 10.0-14.5 Automated blood platelet count (count/volume) 289 10*3/uL 130-400 Automated blood platelet mean volume measurement 9.3 [foz_us] 7.4-10.4 Automated blood neutrophils/100 leukocytes 44 % 42-75 Automated blood lymphocytes/100 leukocytes 46 % 12-44 Blood monocytes/100 leukocytes 8 % 0-12 Automated blood eosinophils/100 leukocytes 1 % 0-10 Automated blood basophils/100 leukocytes 1 % 0-10 Blood neutrophils automated count (number/volume) 2.7 10*3 1.8-7.8 Blood lymphocytes automated count (number/volume) 2.8 10*3 1.0-4.0 Blood monocytes automated count (number/volume) 0.5 10*3 0.0-1.0 Automated eosinophil count 0.1 10*3/uL 0.0-0.3 Automated blood basophil count (count/volume) 0.0 10*3/uL 0.0-0.1 PT panel in platelet poor plasma by coagulation assay - 01/01/19 09:27 Prothrombin time (PT) in platelet poor plasma by coagulation assay 12.4 s 12.2-14.7 INR in platelet poor plasma or blood by coagulation assay 0.9 0.8-1.4 Activated partial thromboplastin time (aPTT) in platelet poor plasma bycoagulation assay - 01/01/19 09:27 Activated partial thromboplastin time (aPTT) in platelet poor plasma bycoagulation assay 26 s 24-35 Comprehensive metabolic panel - 01/01/19 09:27 Serum or plasma sodium measurement (moles/volume) 145 mmol/L 135-145 Serum or plasma potassium measurement (moles/volume) 4.0 mmol/L 3.6-5.0 Serum or plasma chloride measurement (moles/volume) 104 mmol/L 98-107 Carbon dioxide 21 mmol/L 21-32 Serum or plasma anion gap determination (moles/volume) 20 mmol/L 5-14 Serum or plasma urea nitrogen measurement (mass/volume) 22 mg/dL 7-18 Serum or plasma creatinine measurement (mass/volume) 0.72 mg/dL 0.60-1.30 Serum or plasma urea nitrogen/creatinine mass ratio 31 NRG Serum or plasma creatinine measurement with calculation of estimated glomerular filtration rate > NRG Serum or plasma glucose measurement (mass/volume) 92 mg/dL 70-105 Serum or plasma calcium measurement (mass/volume) 9.4 mg/dL 8.5-10.1 Serum or plasma total bilirubin measurement (mass/volume) 0.4 mg/dL 0.1-1.0 Serum or plasma alkaline phosphatase measurement (enzymatic activity/volume) 76 U/L 40-136 Serum or plasma aspartate aminotransferase measurement (enzymatic activity/ volume) 15 U/L 5-34 Serum or plasma alanine aminotransferase measurement (enzymatic activity/volume ) 17 U/L 0-55 Serum or plasma protein measurement (mass/volume) 6.8 g/dL 6.4-8.2 Serum or plasma albumin measurement (mass/volume) 4.3 g/dL 3.2-4.5 CALCIUM CORRECTED 9.2 mg/dL 8.5-10.1 Magnesium - 01/01/19 09:27 Magnesium 2.1 mg/dL 1.8-2.4 TROPONIN T - 01/01/19 09:27 TROPONIN T 10 % <=10 PROBNP FS - 01/01/19 09:27 PROBNP FS 225.0 pg/mL <75.0 Complete urinalysis with reflex to culture - 01/01/19 09:53 Urine color determination YELLOW NRG Urine clarity determination CLEAR NRG Urine pH measurement by test strip 6.0 5-9 Specific gravity of urine by test strip < 1.016-1.022 Urine protein assay by test strip, semi-quantitative NEGATIVE NEGATIVE Urine glucose detection by automated test strip NEGATIVE NEGATIVE Erythrocytes detection in urine sediment by light microscopy 1+ NEGATIVE Urine ketones detection by automated test strip NEGATIVE NEGATIVE Urine nitrite detection by test strip NEGATIVE NEGATIVE Urine total bilirubin detection by test strip NEGATIVE NEGATIVE Urine urobilinogen measurement by automated test strip (mass/volume) 0.2 mg/dL NORMAL Urine leukocyte esterase detection by dipstick TRACE NEGATIVE Automated urine sediment erythrocyte count by microscopy (number/high power field) [HPF] NRG Automated urine sediment leukocyte count by microscopy (number/high power field ) RARE NRG Bacteria detection in urine sediment by light microscopy NONE NRG Squamous epithelial cells detection in urine sediment by light microscopy 0-2 NRG Crystals detection in urine sediment by light microscopy NONE NRG Casts detection in urine sediment by light microscopy NONE NRG Mucus detection in urine sediment by light microscopy NEGATIVE NRG Complete urinalysis with reflex to culture NO NRG Encounters ACCT No. Visit Date/Time Discharge Status Pt. Type Provider Facility Loc./Unit Complaint [id number] 08/09/2014 00:00:00 08/09/2014 23:59:59 CLS Outpatient LIBERTY VELARDE APRN S [id number] 06/19/2014 09:47:00 06/19/2014 23:59:59 CLS Outpatient LIBERTY VELARDE APRN S [id number] 06/12/2014 11:54:00 06/12/2014 23:59:59 CLS Outpatient LIBERTY VELARDE APRN S [id number] 05/10/2014 08:52:00 05/10/2014 23:59:59 CLS Outpatient LIBERTY VELARDE APRN S [id number] 02/06/2014 11:28:00 02/06/2014 23:59:59 CLS Outpatient LIBERTY VELARDE APRN S [id number] 08/17/2013 10:46:00 08/17/2013 23:59:59 CLS Outpatient BRAD KIRBY DO [id number] 08/05/2012 09:52:00 08/05/2012 23:59:59 CLS Outpatient LIBERTY VELARDE APRN S [id number] 03/11/2012 10:00:00 03/11/2012 23:59:59 CLS Outpatient [id number] 04/20/2013 10:21:00 Document Registration [id number] 04/19/2013 10:24:00 Document Registration [id number] 01/05/2019 14:30:00 01/05/2019 23:59:59 CLS Outpatient COPPOLAPRIETO LAW [facility] [id number] 12/08/2018 10:20:00 Document Registration [id number] 01/01/2019 09:19:00 01/01/2019 11:12:00 DIS Outpatient DOUG SNEED DO [facility] ER FS SOB,NAUSEA - HAS GAINED 6 LBS SINCE YESTERDAY [id number] 08/14/2015 11:11:00 08/14/2015 23:59:59 CLS Outpatient RAMONA CLEMENT MD [facility] RAD [id number] 10/02/2014 13:12:00 10/02/2014 23:59:59 CLS Outpatient MAE SIDDIQI DO [facility] RAD CERVICAL STENOSIS [id number] 06/22/2014 08:09:00 06/22/2014 23:59:59 CLS Outpatient LIBERTY VELARDE [facility] RAD NEWLY SCOLIOSIS [id number] 04/21/2013 15:13:00 04/21/2013 22:05:00 DIS Outpatient ALYSSA CHILDERS FACCNAMRATA FACP CCDS [facility] [id number] 07/14/2014 11:12:00 Document Registration [id number] 07/14/2014 11:12:00 Document Registration [id number] 07/14/2014 11:12:00 Document Registration
--- NOTE | 2019-01-10 20:58 | ED General ---
General Chief Complaint: General Problems/Pain Stated Complaint: PT STATES SHES GAINED 7 LBS IN FLUID Source of Information: Patient Exam Limitations: No Limitations History of Present Illness Date Seen by Provider: January 10, 2019 Time Seen by Provider: 20:54 Initial Comments Patient is a 53-year-old female with history of congestive heart failure presents with abdominal distention and 8 pound weight gain and fluid retention the past 24 hours. Patient was evaluated in this emergency department for similar symptoms 3 days ago. She was given IV Lasix at that time and follow up with her telesales manager today and Grace Pineda. Patient contacted her telesales manager after her appointment and notified him of her fluid gain. Patient instructed to take an additional dose of torsemide did so with out weight change. Patient states her urine is clear. Denies chest pain, shortness of breath. Does report increased bilateral peripheral edema. Patient is status post neurostimulator placed 4 days ago at [facility]. Patient states the neurostimulator has not yet been turned on. Denies chest pain. No other acute symptoms or complaints. Timing/Duration: 12-24 Hours Severity: Mild Associated Systoms: Denies Symptoms Allergies and Home Medications Allergies Coded Allergies: Codeine (Verified Allergy, 04/21/13) meperidine (Verified Allergy, 04/21/13) Home Medications Acyclovir 200 Mg Cap, 200 MG PO BID PRN, (Reported) Aspirin 81 Mg Tabec, 81 MG PO DAILY, (Reported) Atenolol 25 Mg Tablet, 25 MG PO DAILY, (Reported) Nitroglycerin 0.4 Mg Subl, 0.4 MG SL NEEDED, (Reported) for chest pain Quinapril/Hydrochlorothiazide 1 Tab Tablet, 1 TAB PO DAILY, (Reported) Patient Home Medication List Home Medication List Reviewed: Yes Review of Systems Review of Systems Constitutional: no symptoms reported, see HPI EENTM: see HPI, no symptoms reported Respiratory: no symptoms reported, see HPI Cardiovascular: see HPI Gastrointestinal: no symptoms reported Genitourinary: no symptoms reported Musculoskeletal: no symptoms reported Skin: no symptoms reported Psychiatric/Neurological: No Symptoms Reported Hematologic/Lymphatic: No Symptoms Reported Past Dhgdsut-Dflbtw-Potqlm Hx Past Med/Social Hx: Reviewed Nursing Past Med/Soc Hx Patient Social History 2nd Hand Smoke Exposure: No Recent Hopitalizations: No Seasonal Allergies Seasonal Allergies: No Past Medical History Surgeries: Yes (Cystoscopy, Spinal surgery) Orthopedic Respiratory: Yes Asthma Cardiac: Yes (HAD TO TAKE A MED TO SLOW HR DURING , CHF) Hypertension Neurological: No Genitourinary: No Gastrointestinal: No Musculoskeletal: Yes Scoliosis Endocrine: No HEENT: No Cancer: No Psychosocial: Yes Anxiety Integumentary: No Blood Disorders: No Physical Exam Vital Signs Capillary Refill : Height, Weight, BMI Height: 4'11.00" Weight: 155lbs. oz. 70.771387yu; BMI Method:Actual General Appearance: No Apparent Distress, WD/WN Eyes: Bilateral Eye Normal Inspection, Bilateral Eye PERRL, Bilateral Eye EOMI HEENT: PERRL/EOMI Neck: Normal Inspection, Supple Respiratory: Chest Non Tender, Lungs Clear Cardiovascular: Regular Rate, Rhythm, Other Gastrointestinal: Normal Bowel Sounds, Non Tender, Soft Neurologic/Psychiatric: Alert, Oriented x3, senior director creative services II-XII Norm as Tested Skin: Normal Color, Warm/Dry Progress/Results/Core Measures Suspected Sepsis SIRS Temperature: Pulse: Respiratory Rate: Laboratory Tests 01/10/19 21:03: White Blood Count 6.6 Blood Pressure / Mean: Laboratory Tests 01/10/19 21:03: Creatinine 0.95, Platelet Count 253 Results/Orders Lab Results Laboratory Tests Test 01/10/19 21:03 Range/Units White Blood Count 6.6 4.3-11.0 10^3/uL Red Blood Count 3.96 L 4.35-5.85 10^6/uL Hemoglobin 12.3 11.5-16.0 G/DL Hematocrit 36 35-52 % Mean Corpuscular Volume 90 80-99 FL Mean Corpuscular Hemoglobin 31 25-34 PG Mean Corpuscular Hemoglobin Concent 35 32-36 G/DL Red Cell Distribution Width 12.3 10.0-14.5 % Platelet Count 253 130-400 10^3/uL Mean Platelet Volume 9.8 7.4-10.4 FL Neutrophils (%) (Auto) 59 42-75 % Lymphocytes (%) (Auto) 32 12-44 % Monocytes (%) (Auto) 7 0-12 % Eosinophils (%) (Auto) 1 0-10 % Basophils (%) (Auto) 0 0-10 % Neutrophils # (Auto) 3.9 1.8-7.8 X 10^3 Lymphocytes # (Auto) 2.2 1.0-4.0 X 10^3 Monocytes # (Auto) 0.5 0.0-1.0 X 10^3 Eosinophils # (Auto) 0.1 0.0-0.3 10^3/uL Basophils # (Auto) 0.0 0.0-0.1 10^3/uL Sodium Level 142 135-145 MMOL/L Potassium Level 3.3 L 3.6-5.0 MMOL/L Chloride Level 98 98-107 MMOL/L Carbon Dioxide Level 27 21-32 MMOL/L Anion Gap 17 H 5-14 MMOL/L Blood Urea Nitrogen 23 H 7-18 MG/DL Creatinine 0.95 0.60-1.30 MG/DL Estimat Glomerular Filtration Rate > 60 BUN/Creatinine Ratio 24 Glucose Level 105 70-105 MG/DL Calcium Level 8.9 8.5-10.1 MG/DL Troponin T 10 <=10 NG/L Pro-B-Type Natriuretic Peptide 286.8 H <75.0 PG/ML My Orders Orders - BAN ROBBINS DO Cbc With Automated Diff (01/10/19 20:52) Basic Metabolic Panel (01/10/19 20:52) Probnp Fs (01/10/19 20:52) Troponin T (01/10/19 20:52) Chest 1 View Ap/Pa Only (01/10/19 20:52) Furosemide Injection (Lasix Injection) (01/10/19 21:45) Potassium Chloride (Tablet) (K Dur Table (01/10/19 21:45) Hydrocodone/Apap 10/325 Tablet (Lortab 1 (01/10/19 22:00) Medications Given in ED Current Medications Medications Dose Ordered Sig/Nalini Route Start Time Stop Time Status Last Admin Dose Admin Acetaminophen/ Hydrocodone Bitart 1 ea ONCE ONCE PO 01/10/19 22:00 01/10/19 22:01 DC 01/10/19 22:09 1 EA Furosemide 40 mg ONCE ONCE IVP 01/10/19 21:45 01/10/19 21:47 DC 01/10/19 22:05 40 MG Potassium Chloride 40 meq ONCE ONCE PO 01/10/19 21:45 01/10/19 21:47 DC 01/10/19 22:05 40 MEQ Vital Signs/I&O Capillary Refill : Departure Communication (Admissions) Patient with fluid retention without left-sided heart failure. Patient has been sleeping in a recliner since her back surgery 3 days ago likely contributing to fluid retention. Patient was instructed by her telesales manager to increase her torsemide to 60 mg daily which she will start tomorrow. Additionally, the patient will benefit from compression stockings. Single dose of Lasix, potassium and home pain medications given prior to departure. Questions answered. Impression Primary Impression: Anasarca Additional Impression: Congestive heart failure Disposition: HOME, SELF-CARE Condition: Improved Departure-Patient Inst. Referrals: PRIETO COPPOLA APRN (Family) Primary Care Physician Patient Instructions: Heart Failure, Adult (DC) Add. Discharge Instructions: Please follow diuretic dosing instruction and directions given to by her telesales manager. Use compression stockings at night and throughout the daytime. Return to the ED if new or worsening symptoms. All discharge instructions reviewed with patient and/or family. Voiced understanding. BAN ROBBINS DO January 10, 2019 20:58
[2019-01-10 21:13] LABS: HEMATOCRIT 36 % (35-52); HEMOGLOBIN 12.3 G/DL (11.5-16.0); MEAN CORPUSCULAR HEMOGLOBIN 31 PG (25-34); WHITE BLOOD COUNT 6.6 10^3/uL (4.3-11.0)
[2019-01-10 21:14] LABS: BASOPHILS % (AUTO) 0 % (0-10); EOSINOPHILS % (AUTO) 1 % (0-10); LYMPHOCYTES # (AUTO) 2.2 X 10^3 (1.0-4.0); LYMPHOCYTES % (AUTO) 32 % (12-44); MEAN CORPUSCULAR HGB CONC 35 G/DL (32-36); MEAN CORPUSCULAR VOLUME 90 FL (80-99); MEAN PLATELET VOLUME 9.8 FL (7.4-10.4); MONOCYTES % (AUTO) 7 % (0-12); NEUTROPHILS # (AUTO) 3.9 X 10^3 (1.8-7.8); NEUTROPHILS % (AUTO) 59 % (42-75); PLATELET COUNT 253 10^3/uL (130-400); RED CELL DISTRIBUTION WIDTH 12.3 % (10.0-14.5)
[2019-01-10 21:15] LABS: EOSINOPHILS # (AUTO) 0.1 10^3/uL (0.0-0.3); MONOCYTES # (AUTO) 0.5 X 10^3 (0.0-1.0)
--- NOTE | 2019-01-10 21:39 | Diagnostic Imaging Report ---
INDICATION: Shortness of breath and chest pain Frontal chest obtained at 9:08 p.m. and compared to 01/01/2019. Heart is normal in size. Aorta is tortuous. There are mild chronic appearing increased interstitial markings which are similar to the prior study. There is a spinal stimulator device in place over the thoracic canal. There is scoliotic change which is stable. There is no pneumothorax or pleural fluid or overt consolidation. IMPRESSION: Chronic changes as above with no focal infiltrate or pneumothorax or pleural fluid. There is a new spinal stimulator device in place. Dictated by: Dictated on workstation # [id number]
[2019-01-10 21:43] LABS: BUN/CREATININE RATIO 24; CALCIUM 8.9 MG/DL (8.5-10.1); CARBON DIOXIDE 27 MMOL/L (21-32); CHLORIDE 98 MMOL/L (98-107); CREATININE SERUM 0.95 MG/DL (0.60-1.30); GFR ESTIMATED > 60; GLUCOSE 105 MG/DL (70-105); POTASSIUM 3.3 MMOL/L (3.6-5.0); SODIUM 142 MMOL/L (135-145)
[2019-01-10] MEDS ORDERED: KCL 20 MEQ TAB (K-DUR) PO ONE (21:45)
[2019-01-10] MEDS ORDERED: FUROSEMIDE 40 MG/4 ML INJ (LASIX) IVP ONE (21:45)
[2019-01-10] MEDS ORDERED: HYDROcodone/APAP 10 MG/325 MG (LORTAB) TAB PO ONE (22:00)
[2019-01-10 23:14] VITALS: BP 148/78
== END 2019-01-10 22:42 | disposition home or self-care (01) ==
LOC: EDUNIT# 20:24 → ER FS 20:26
DX: R60.1 Generalized edema (principal); I11.0 Hypertensive heart disease with heart failure; I50.9 Heart failure, unspecified; M41.9 Scoliosis, unspecified; F41.9 Anxiety disorder, unspecified; J45.909 Unspecified asthma, uncomplicated; Z88.5 Allergy status to narcotic agent; Z88.8 Allergy status to other drugs, medicaments and biological substances; Z79.82 Long term (current) use of aspirin
CPT/HCPCS: 36415; 71045; 80048; 83880; 84484; 85025; 96374

== ENCOUNTER 2019-08-26 18:27 | Emergency (ER) | payer MEDICARE, MEDICAID ==
[~2019-08-26] VITALS: Ht 149 cm; Wt 64.0 kg
[2019-08-26 18:57] LABS: COLOR,URINE YELLOW
[2019-08-26 18:58] LABS: CLARITY,URINE SLTCLOUDY; GLUCOSE, URINE (UA) NEGATIVE (NEGATIVE); KETONES,URINE NEGATIVE (NEGATIVE); NITRITE,URINE NEGATIVE (NEGATIVE); PH,URINE 5.5 (5-9); PROTEIN,URINE NEGATIVE (NEGATIVE)
[2019-08-26 18:59] LABS: BACTERIA,URINE TRACE /HPF; BILIRUBIN,URINE NEGATIVE (NEGATIVE); LEUKOCYTE ESTERASE ,URINE 2+ (NEGATIVE); RBC,URINE 0-2 /HPF; SQUAMOUS EPITHELIAL CELL,UR RARE /HPF
[2019-08-26] MEDS ORDERED: cefTRIAXone 1,000 MG/2.86 ml vial (IM ONLY) IM STA (19:10)
[2019-08-26] MEDS ORDERED: LIDOCAINE 1% INJ 20 ML 20 ML VIAL INJ ONE (19:15)
[2019-08-26] MEDS ORDERED: CEPH500T PO (19:21)
--- NOTE | 2019-08-26 19:22 | ED GU-Female ---
General Chief Complaint: - Urinary Stated Complaint: VAGINAL BLEEDIN Nursing Triage Note: PT REPORTS SHE HAS STAGE 3 KIDNEY DISEASE. SHE REPORTS SOME BLOOD ON THE TISSUE WHEN WIPING AFTER URINATION. RIGHT FLANK PAIN SINCE NOON. Nursing Sepsis Screen: No Definite Risk Source: patient History of Present Illness Date Seen by Provider: Aug 26, 2019 Time Seen by Provider: 18:41 Initial Comments 54-year-old female presenting with complaints of seeing blood in her urine today. She has not felt well all day and was not sure why. She has some mild pain in her right flank. She denies any nausea or vomiting. She knows that she has stage III chronic kidney disease. She is set to a fat pad biopsy on Thursday to evaluate for possible amyloidosis. She is also to do a 24-hour urine test over the weekend and turned in the results on Thursday. She has several tests scheduled for Thursday at [facility]. They are trying to evaluate why she is having a rapidly worsening kidney function. She also has chronic heart failure and takes multiple diuretics. She does have a history of recurrent kidney infections and urine infections. When she called her clinic to try and reach her regular provider at [facility] today she got the on-call doctor and they advised her to immediately come to the emergency department to be evaluated rather than wait till Thursday because of her poor kidney function. They felt that if she had a UTI it would be best to get her started on antibiotics as soon as possible rather than wait. Allergies and Home Medications Allergies Coded Allergies: Codeine (Verified Allergy, 04/21/13) meperidine (Verified Allergy, 04/21/13) Home Medications Acyclovir 200 Mg Cap, 200 MG PO BID PRN, (Reported) Aspirin 81 Mg Tabec, 81 MG PO DAILY, (Reported) Atenolol 25 Mg Tablet, 25 MG PO DAILY, (Reported) Cephalexin 500 Mg Tablet, 500 MG PO QID Prescribed by: IBIS LANIER on 08/26/191920 Nitroglycerin 0.4 Mg Subl, 0.4 MG SL NEEDED, (Reported) for chest pain Quinapril/Hydrochlorothiazide 1 Tab Tablet, 1 TAB PO DAILY, (Reported) Patient Home Medication List Home Medication List Reviewed: Yes Review of Systems Review of Systems Constitutional: No chills, No fever; malaise EENTM: no symptoms reported Respiratory: no symptoms reported Cardiovascular: no symptoms reported Gastrointestinal: other (right flank pain since this afternoon) Genitourinary: flank pain (right flank pain since this afternoon), hematuria Musculoskeletal: no symptoms reported Skin: no symptoms reported Psychiatric/Neurological: No Symptoms Reported Past Ywdtunp-Pxjfid-Wxfdxk Hx Past Med/Social Hx: Reviewed Nursing Past Med/Soc Hx Patient Social History Alcohol Use: Denies Use Recreational Drug Use: No 2nd Hand Smoke Exposure: No Recent Foreign Travel: No Contact w/Someone Who Travel: No Recent Infectious Disease Expo: No Recent Hopitalizations: No Physical Abuse: No Sexual Abuse: No Mistreated: No Fear: No Seasonal Allergies Seasonal Allergies: No Past Medical History Surgeries: Yes (heart cath, spinal fusion, carpal tunnel) Cardiac, Hysterectomy, Orthopedic, Tonsillectomy Respiratory: No Asthma Cardiac: Yes (cardiac catheter, congestive heart failure) Hypertension Neurological: No 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 oz. 71.598692df; 28.00 BMI Method:Actual General Appearance: WD/WN, no apparent distress HEENT: PERRL/EOMI, pharynx normal Gastrointestinal: normal bowel sounds, non tender, soft Neurologic/Psychiatric: alert, normal mood/affect, oriented x 3 Skin: normal color, warm/dry Progress/Results/Core Measures Suspected Sepsis Recent Fever Within 48 Hours: No Infection Criteria Present: None New/Unexplained Altered Menta: No Sepsis Screen: No Definite Risk SIRS Temperature: Pulse: 97 Respiratory Rate: 18 Blood Pressure 137 /92 Mean: 107 Results/Orders Lab Results Laboratory Tests Test 08/26/19 18:30 Range/Units Urine Color YELLOW Urine Clarity SLTCLOUDY Urine pH 5.5 5-9 Urine Specific Ehrhardt 1.020 1.016-1.022 Urine Protein NEGATIVE NEGATIVE Urine Glucose (UA) NEGATIVE NEGATIVE Urine Ketones NEGATIVE NEGATIVE Urine Nitrite NEGATIVE NEGATIVE Urine Bilirubin NEGATIVE NEGATIVE Urine Urobilinogen 0.2 < = 1.0 MG/DL Urine Leukocyte Esterase 2+ H NEGATIVE Urine RBC (Auto) 3+ H NEGATIVE Urine RBC 0-2 /HPF Urine WBC 5-10 H /HPF Urine Squamous Epithelial Cells RARE /HPF Urine Crystals NONE /LPF Urine Bacteria TRACE /HPF Urine Casts NONE /LPF Urine Mucus SMALL H /LPF Urine Culture Indicated YES My Orders Orders - IBIS LANIER MD Ua Culture If Indicated (08/26/19 18:37) Urine Culture (08/26/19 18:30) Ceftriaxone For Im Use (Rocephin For Im (08/26/19 19:10) Lidocaine 1% Inj 20 Ml (Xylocaine 1% Inj (08/26/19 19:15) Medications Given in ED Current Medications Medications Dose Ordered Sig/Nalini Route Start Time Stop Time Status Last Admin Dose Admin Lidocaine HCl 2.1 ml ONCE ONCE INJ 08/26/19 19:15 08/26/19 19:16 DC 08/26/19 19:20 2.1 ML Vital Signs/I&O 08/26/19 08/26/19 18:30 19:24 Temp 37.2 Pulse 97 97 Resp 18 18 B/P (MAP) 137/92 (107) 137/92 Pulse Ox 98 98 O2 Delivery Room Air Room Air Capillary Refill : Less Than 3 Seconds Blood Pressure Mean: 107 Progress Note : Progress Note Urinalysis was obtained and did show evidence of hematuria and leukocyte esterase and bacteria. Based on these findings will treat her for UTI. Since she does have kidney dysfunction and chronic kidney disease will give a Rocephin shot here and continue cephalexin to limit the impact on her kidney function. If the culture shows that she needs a different antibiotic will contact the patient to change that once the results come back. Departure Impression Primary Impression: Acute cystitis with hematuria Disposition: 01 HOME, SELF-CARE Condition: Stable Departure-Patient Inst. Decision time for Depature: 19:19 Referrals: [facility] (PCP) Primary Care Physician PRIETO COPPOLA APRN (Family) Primary Care Physician Patient Instructions: Urinary Tract Infection, Adult (DC), Blood in the Urine (Hematuria), Adult (DC) Add. Discharge Instructions: Take the full course of antibiotics to treat for urine infection. If the culture shows that you need a different antibiotic then you will get a call so we can call in a new medicine to the pharmacy. Follow up with clinic for continued concerns All discharge instructions reviewed with patient and/or family. Voiced understanding. Scripts Cephalexin (Cephalexin) 500 Mg Tablet 500 MG PO QID for uti for 7 Days, #28 TAB 0 Refills Prov: IBIS LANIER MD 08/26/19 IBIS LANIER MD Aug 26, 2019 19:21
[2019-08-26 19:24] VITALS: BP 137/92
== END 2019-08-26 19:24 | disposition home or self-care (01) ==
LOC: EDUNIT# 18:27 → ER FS 18:30
DX: N30.01 Acute cystitis with hematuria (principal); I13.0 Hypertensive heart and chronic kidney disease with heart failure and stage 1 through stage 4 chronic kidney disease, or unspecified chronic kidney disease; N18.3 Chronic kidney disease, stage 3 (moderate); I50.9 Heart failure, unspecified; J45.909 Unspecified asthma, uncomplicated; F41.9 Anxiety disorder, unspecified; Z88.5 Allergy status to narcotic agent; Z79.82 Long term (current) use of aspirin; Z90.710 Acquired absence of both cervix and uterus; Z95.9 Presence of cardiac and vascular implant and graft, unspecified; Z90.89 Acquired absence of other organs
CPT/HCPCS: 81000; 87088; 96372; 99284

== ENCOUNTER 2020-08-14 10:07 | Emergency (ER) | payer MEDICARE, MEDICAID ==
[~2020-08-14] VITALS: Ht 149.8 cm; Wt 62.5 kg
[~2020-08-14 10:07] MED LIST changes: +CEPH500T PO
--- NOTE | 2020-08-14 10:39 | ED Chest Pain ---
General Chief Complaint: Chest Pain Stated Complaint: CHEST PAIN; COVID+ Nursing Triage Note: Patient reports she began having diarrhea and shortness of breath on August 06, states she tested positive for COVID-19 on August 07. She states her symptoms have been gradually improving. She reports sudden onset of left precordial chest pain today while lying down. She states the pain radiates to the left side of her jaw, rated her pain at 9/10 initially. She states she took two SL nitro at home and rates her pain at 4/10 on arrival to the ED. She states she has stage II diastolic dysfunction and sees a games dealer at . She also reports stage III kidney disease. She states she has at least two episodes of chest pain per month, states they are usually brief and self resolved or resolved with one nitro. She states this episode of chest pain was more severe and lasted longer than a typical episode. She states she had a heart cath in of this year, told she has a slight blockage/narrowing of an artery in her heart, but not enough to stent. Reports she has a blocked artery in her right leg as well that may need to be stented. Nursing Sepsis Screen: No Definite Risk Source: patient Exam Limitations: no limitations History of Present Illness Date Seen by Provider: Aug 14, 2020 Time Seen by Provider: 10:25 Initial Comments 55-year-old female with past medical history significant for coronary artery disease, presents with sudden onset of chest pain this morning, beginning 20 minutes prior to arrival. She states she took 2 nitroglycerin and on arrival her chest pain had resolved. Patient also recently diagnosed with COVID-19 on August 07 and primarily was having gastrointestinal problems, diarrhea and weakness but overall is improving. She has had some mild shortness of air, but no significant lower respiratory problems. Allergies and Home Medications Allergies Coded Allergies: codeine (Verified Allergy, Unknown, 08/14/20) meperidine (Verified Allergy, Unknown, 08/14/20) Home Medications Acyclovir 200 Mg Cap, 200 MG PO BID PRN, (Reported) Aspirin 81 Mg Tabec, 81 MG PO DAILY, (Reported) Atenolol 25 Mg Tablet, 25 MG PO DAILY, (Reported) Cephalexin 500 Mg Tablet, 500 MG PO QID Prescribed by: IBIS LANIER on 08/26/191920 Nitroglycerin 0.4 Mg Subl, 0.4 MG SL NEEDED, (Reported) for chest pain Quinapril/Hydrochlorothiazide 1 Tab Tablet, 1 TAB PO DAILY, (Reported) Patient Home Medication List Home Medication List Reviewed: Yes Review of Systems Review of Systems Constitutional: see HPI; No chills, No fever; malaise EENTM: No Symptoms Reported Respiratory: Denies Cough; Shortness of Air (intermittent); Denies Stridor, Denies Wheezing Cardiovascular: Chest Pain; Denies Edema, Denies Irregular Heart Rate, Denies Lightheadedness, Denies Palpitations, Denies Syncope Gastrointestinal: Denies Abdominal Pain, Denies Constipated; Diarrhea; Denies Nausea, Denies Poor Appetite, Denies Vomiting Musculoskeletal: No back pain, No joint pain Skin: No change in color, No rash Past Acakjml-Brcezc-Fdrgsw Hx Patient Social History 2nd Hand Smoke Exposure: No Recent Foreign Travel: No Contact w/Someone Who Travel: No Recent Infectious Disease Expo: No Recent Hopitalizations: No Seasonal Allergies Seasonal Allergies: No Past Medical History Surgeries: Yes (heart cath, spinal fusion, carpal tunnel) Cardiac, Hysterectomy, Orthopedic, Tonsillectomy Respiratory: No Asthma Cardiac: Yes (cardiac catheter, congestive heart failure) Hypertension Neurological: 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 oz. 71.662988le; 27.00 BMI Method:Actual General Appearance: No Apparent Distress, WD/WN HEENT: PERRL/EOMI, Normal ENT Inspection Neck: Non Tender, Supple Respiratory: Chest Non Tender, Lungs Clear, Normal Breath Sounds, No Accessory Muscle Use, No Respiratory Distress Cardiovascular: Regular Rate, Rhythm, No Edema, No Gallop, No JVD, Normal Peripheral Pulses Gastrointestinal: No Organomegaly, No Pulsatile Mass, Non Tender, Soft Extremity: Normal Capillary Refill, Normal Inspection, Non Tender Neurologic/Psychiatric: Alert, Oriented x3, No Motor/Sensory Deficits, Normal Mood/Affect Skin: Normal Color, Warm/Dry Progress/Results/Core Measures Results/Orders Lab Results Laboratory Tests Test 08/14/20 10:23 08/14/20 12:29 Range/Units White Blood Count 6.1 4.3-11.0 10^3/uL Red Blood Count 4.29 L 4.35-5.85 10^6/uL Hemoglobin 13.5 11.5-16.0 G/DL Hematocrit 40 35-52 % Mean Corpuscular Volume 93 80-99 FL Mean Corpuscular Hemoglobin 31 25-34 PG Mean Corpuscular Hemoglobin Concent 34 32-36 G/DL Red Cell Distribution Width 12.6 10.0-14.5 % Platelet Count 273 130-400 10^3/uL Mean Platelet Volume 9.1 7.4-10.4 FL Immature Granulocyte % (Auto) 0 % Neutrophils (%) (Auto) 63 42-75 % Lymphocytes (%) (Auto) 27 12-44 % Monocytes (%) (Auto) 7 0-12 % Eosinophils (%) (Auto) 2 0-10 % Basophils (%) (Auto) 1 0-10 % Neutrophils # (Auto) 3.9 1.8-7.8 X 10^3 Lymphocytes # (Auto) 1.7 1.0-4.0 X 10^3 Monocytes # (Auto) 0.4 0.0-1.0 X 10^3 Eosinophils # (Auto) 0.1 0.0-0.3 10^3/uL Basophils # (Auto) 0.0 0.0-0.1 10^3/uL Immature Granulocyte # (Auto) 0.0 0.0-0.1 10^3/uL Sodium Level 139 135-145 MMOL/L Potassium Level 4.1 3.6-5.0 MMOL/L Chloride Level 103 98-107 MMOL/L Carbon Dioxide Level 23 21-32 MMOL/L Anion Gap 13 5-14 MMOL/L Blood Urea Nitrogen 21 H 7-18 MG/DL Creatinine 1.09 0.60-1.30 MG/DL Estimat Glomerular Filtration Rate 52 BUN/Creatinine Ratio 19 Glucose Level 152 H 70-105 MG/DL Calcium Level 9.4 8.5-10.1 MG/DL Corrected Calcium 9.1 8.5-10.1 MG/DL Total Bilirubin 0.5 0.1-1.0 MG/DL Aspartate Amino Transf (AST/SGOT) 19 5-34 U/L Alanine Aminotransferase (ALT/SGPT) 16 0-55 U/L Alkaline Phosphatase 90 40-136 U/L Troponin I < 0.30 < 0.30 <0.30 NG/ML Total Protein 6.9 6.4-8.2 GM/DL Albumin 4.4 3.2-4.5 GM/DL My Orders Orders - SHAAN HUGHES DO Aspirin Chewable Tablet (Baby Aspirin Ch (08/14/20 10:45) Ed Iv/Invasive Line Start (08/14/20 10:34) Chest 1 View Ap/Pa Only (08/14/20 10:34) Ekg Tracing (08/14/20 10:34) Troponin I Fs (08/14/20 10:34) Cbc With Automated Diff (08/14/20 10:34) Comprehensive Metabolic Panel (08/14/20 10:34) Aspirin Chewable Tablet (Baby Aspirin Ch (08/14/20 10:40) Troponin I Fs (08/14/20 12:30) Ekg Tracing (08/14/20 12:15) Medications Given in ED Current Medications Medications Dose Ordered Sig/Nalini Route Start Time Stop Time Status Last Admin Dose Admin Aspirin 324 mg ONCE ONCE PO 08/14/20 10:45 08/14/20 10:46 DC 08/14/20 10:45 324 MG Vital Signs/I&O 08/14/20 08/14/20 08/14/20 10:10 10:33 13:40 Temp 36.3 Pulse 86 80 Resp 14 18 B/P (MAP) 102/68 (79) 97/55 Pulse Ox 97 97 O2 Delivery Room Air Room Air Room Air Blood Pressure Mean: 79 Progress Progress Note : Progress Note Patient with a uneventful ER stay, no chest pain for entire duration, normal initial and repeat EKG at 2 hours as well as normal initial troponin and repeat at 2 hours. Advised patient to call her games dealer to notify regarding episode of angina and also to follow up with the nearest ER should her chest pain recur and not relieved by nitroglycerin. Initial ECG Impression Date: Aug 14, 2020 Initial ECG Impression Time: 10:12 Initial ECG Rate: 80 Initial ECG Rhythm: Normal Sinus Initial ECG Impression: Normal Initial ECG Comparisson: No Previous ECG Available EKG : EKG Time: 12:25 Rate: 85 Rhythm: Normal Sinus Intervals: Normal ECG Comparisson: Unchanged ECG Impression: Normal Diagnostic Imaging Diagonstic Imaging: Xray Plain Films/CT/US/NM/MRI: chest Comments COMPARISON: 01/10/2019 TECHNIQUE: Frontal view of the chest. FINDINGS: Lung volumes are normal. Mildly increased retrocardiac opacity is seen in the left lung base. There is no pleural effusion or pneumothorax. The cardiac silhouette is normal in size. The spinal cord stimulator leads appear displaced inferiorly compared to the prior exam. IMPRESSION: 1. Mildly increased retrocardiac opacity at the left lung base, could represent developing infiltrate. 2. Inferior migration of the spinal cord stimulator leads compared to 01/10/2019. Dictated by: Dictated on workstation # [id number] Dict: 08/14/20 1059 Trans: 08/14/20 1103 CV [id number] Interpreted by: DANE LARSON MD Electronically signed by: DANE LARSON MD 08/14/20 1103 Departure Impression Primary Impression: Chest pain Qualified Codes: R07.9 - Chest pain, unspecified Disposition: 01 HOME, SELF-CARE Condition: Improved Departure-Patient Inst. Decision time for Depature: 13:00 Referrals: NO,LOCAL PHYSICIAN (PCP/Family) Primary Care Physician Patient Instructions: Chest Pain (DC) Add. Discharge Instructions: Call your Consulting Networking Engineer office (today) to notify them of your episode of chest pain this morning relieved after taking 2 nitroglycerin tablets. RETURN to the [facility] for any chest pain UN-relieved with nitroglycerin. All discharge instructions reviewed with patient and/or family. Voiced understanding. SHAAN HUGHES DO Aug 14, 2020 10:39
[2020-08-14] MEDS ORDERED: ASPIRIN 81 MG CHEW (CHILDREN'S ASA) ONE (10:40)
[2020-08-14 10:45] LABS: BASOPHILS % (AUTO) 1 % (0-10); EOSINOPHILS % (AUTO) 2 % (0-10); HEMATOCRIT 40 % (35-52); HEMOGLOBIN 13.5 G/DL (11.5-16.0); LYMPHOCYTES # (AUTO) 1.7 X 10^3 (1.0-4.0); LYMPHOCYTES % (AUTO) 27 % (12-44); MEAN CORPUSCULAR HEMOGLOBIN 31 PG (25-34); MEAN CORPUSCULAR HGB CONC 34 G/DL (32-36); MEAN CORPUSCULAR VOLUME 93 FL (80-99); MEAN PLATELET VOLUME 9.1 FL (7.4-10.4); MONOCYTES # (AUTO) 0.4 X 10^3 (0.0-1.0); MONOCYTES % (AUTO) 7 % (0-12); NEUTROPHILS # (AUTO) 3.9 X 10^3 (1.8-7.8); NEUTROPHILS % (AUTO) 63 % (42-75); PLATELET COUNT 273 10^3/uL (130-400); WHITE BLOOD COUNT 6.1 10^3/uL (4.3-11.0)
[2020-08-14] MEDS ORDERED: ASPIRIN 81 MG CHEW (CHILDREN'S ASA) PO ONE (10:45)
[2020-08-14 10:46] LABS: EOSINOPHILS # (AUTO) 0.1 10^3/uL (0.0-0.3)
[2020-08-14 10:55] LABS: ALANINE AMINOTRANSFERASE 16 U/L (0-55); ALBUMIN 4.4 GM/DL (3.2-4.5); ALKALINE PHOSPHATASE 90 U/L (40-136); BILIRUBIN,TOTAL 0.5 MG/DL (0.1-1.0); BUN/CREATININE RATIO 19; CALCIUM 9.4 MG/DL (8.5-10.1); CARBON DIOXIDE 23 MMOL/L (21-32); CHLORIDE 103 MMOL/L (98-107); CREATININE SERUM 1.09 MG/DL (0.60-1.30); GFR ESTIMATED 52; GLUCOSE 152 MG/DL (70-105); POTASSIUM 4.1 MMOL/L (3.6-5.0); SODIUM 139 MMOL/L (135-145); TOTAL PROTEIN 6.9 GM/DL (6.4-8.2)
--- NOTE | 2020-08-14 11:02 | Diagnostic Imaging Report ---
HISTORY: Shortness of breath and diarrhea. COVID 19 positive. Chest pain. COMPARISON: 01/10/2019 TECHNIQUE: Frontal view of the chest. FINDINGS: Lung volumes are normal. Mildly increased retrocardiac opacity is seen in the left lung base. There is no pleural effusion or pneumothorax. The cardiac silhouette is normal in size. The spinal cord stimulator leads appear displaced inferiorly compared to the prior exam. IMPRESSION: 1. Mildly increased retrocardiac opacity at the left lung base, could represent developing infiltrate. 2. Inferior migration of the spinal cord stimulator leads compared to 01/10/2019. Dictated by: Dictated on workstation # [id number]
[2020-08-14 13:40] VITALS: BP 97/55
== END 2020-08-14 13:40 | disposition home or self-care (01) ==
LOC: EDUNIT# 10:07 → ER FS 10:09
DX: U07.1 COVID-19 (principal); I11.0 Hypertensive heart disease with heart failure; I50.9 Heart failure, unspecified; Z95.9 Presence of cardiac and vascular implant and graft, unspecified; Z88.5 Allergy status to narcotic agent; Z79.82 Long term (current) use of aspirin
CPT/HCPCS: 36415; 71045; 80053; 84484; 85025; 93005

== ENCOUNTER → 2022-05-22 | Outpatient (CLI) | payer OTHER, MEDICAID ==
--- NOTE | 2022-05-22 17:11 | Diagnostic Imaging Report ---
EXAMINATION: Left ankle radiographs, 3 views. COMPARISON: None. HISTORY: 56-year-old female, left ankle pain and swelling. FINDINGS: The alignment of the ankle mortise is unremarkable. There is no tibiotalar joint effusion. There is no identified acute fracture. There is degenerative type enthesopathy at the Achilles tendon insertion. IMPRESSION: 1. No identified acute bony abnormalities left ankle. Dictated by: Dictated on workstation # [id number]
--- NOTE | 2022-05-22 17:12 | Diagnostic Imaging Report ---
EXAMINATION: Left hand radiographs, 3 views. COMPARISON: None. HISTORY: 56-year-old female, chronic left hand pain. 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 There is narrowing of the joint space between the capitate and lunate. Third distal phalanx is mildly laterally subluxed. There is moderate joint space loss of the third and fifth distal interphalangeal joints. There is no identified acute fracture. There is no chondrocalcinosis. There is no identified bone erosion. IMPRESSION: 1. Advanced triscaphe and midcarpal arthritis. 2. 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 The third distal phalanx is mildly laterally subluxed. Dictated by: Dictated on workstation # [id number]
== END ==
LOC: RAD FS 15:40
PROVIDERS: ATTEND Nurse Practitioner Family
DX: M19.042 Primary osteoarthritis, left hand (principal)
CPT/HCPCS: 73130; 73610

== ENCOUNTER 2022-07-02 18:19 | Emergency (ER) | payer OTHER, MEDICAID ==
[~2022-07-02] VITALS: Ht 182 cm; Wt 69.0 kg
--- NOTE | 2022-07-02 18:48 | ED EENT ---
History of Present Illness General Chief Complaint: Oral/Throat Problems Stated Complaint: SOB Nursing Triage Note: Patient has presented to ER with cc of a sore throat, diarrhea, feels tired and sleeping a lot the past 2 days, and she just is not feeling well. She went to urgent care and she was sent to ER for evaluation. Patient reports that her 2 grand kids have RSV and she is concerned about having RSV, she was tested for RSV at the urgent care and she is negative. Source: patient Exam Limitations: no limitations History of Present Illness Date Seen by Provider: Jul 02, 2022 Time Seen by Provider: 18:30 Initial Comments Patient is a 57-year-old female with history of hypertension, congestive heart failure stage III kidney disease who presents with sore throat, diarrhea, fatigue and malaise for the past 2 days. No fever chills or sweats. No cough, shortness of breath, palpitations. No other acute symptoms or complaints. Patient has had recent RSV exposure to her grandchildren. She was evaluated at urgent care today and tested negative for RSV. Timing/Duration: gradual Severity: mild Prearrival Treatment: other Modifying Factors: Improves With Other Associated Symptoms: other Allergies and Home Medications Allergies Coded Allergies: codeine (Verified Allergy, Unknown, 08/14/20) meperidine (Verified Allergy, Unknown, 08/14/20) Patient Home Medication List Home Medication List Reviewed: Yes Acyclovir (Zovirax Po) 200 Mg Cap, 200 MG PO BID PRN, (Reported) Entered as Reported by: LANE COLON on 04/21/13 153 Aspirin (Aspirin Ec 81 Mg) 81 Mg Tabec, 81 MG PO DAILY, (Reported) Entered as Reported by: LANE COLON on 04/21/131537 Atenolol (Tenormin 25 Mg) 25 Mg Tablet, 25 MG PO DAILY, (Reported) Entered as Reported by: LANE COLON on 04/21/131537 Cephalexin (Cephalexin) 500 Mg Tablet, 500 MG PO QID Prescribed by: IBIS LANIER on 08/26/191920 Nitroglycerin (Nitrostat) 0.4 Mg Subl, 0.4 MG SL NEEDED, (Reported) Entered as Reported by: LANE COLON on 04/21/131537 Quinapril/Hydrochlorothiazide (Accuretic 20-25 Mg Tablet) 1 Tab Tablet, 1 TAB PO DAILY, (Reported) Entered as Reported by: LANE COLON on 04/21/13 9278 Review of Systems Review of Systems Constitutional: see HPI Eyes: See HPI Ears: See HPI Nose: see HPI Mouth: see HPI Throat: see HPI Respiratory: see HPI Cardiovascular: see HPI Gastrointestinal: see HPI : No Musculoskeletal: other Skin: other Neurological: Other Hematologic/Lymphatic: Other Past Cyvlapp-Ympuek-Wqbjav Hx Patient Social History Tobacco Use?: No Use of E-Cig and/or Vaping dev: No Substance use?: No Alcohol Use?: No Pt feels they are or have been: No Immunizations Up To Date First/Initial COVID19 Vaccinat: UNK Second COVID19 Vaccination Ozzie: UNK Seasonal Allergies Seasonal Allergies: No Past Medical History Surgeries: Yes (heart cath, spinal fusion, carpal tunnel) Cardiac, Hysterectomy, Orthopedic, Tonsillectomy Respiratory: Yes Asthma Cardiac: Yes (cardiac catheter, congestive heart failure) Hypertension 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 oz. 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 Vital signs are stable. Recommendations are supportive care watchful waiting and PCP follow-up. Return precautions reviewed. Patient verbalizes understanding and agreement discharge instructions prior to departure Impression Primary Impression: Viral syndrome Disposition: HOME, SELF-CARE Condition: Stable Departure-Patient Inst. Decision time for Depature: 18:49 Referrals: NO,LOCAL PHYSICIAN (PCP/Family) Primary Care Physician Patient Instructions: Viral Syndrome (DC) Add. Discharge Instructions: You were evaluated in the emergency department for generalized weakness, sore throat and fatigue. Your symptoms are consistent with a viral syndrome. Please go home and rest, take Imodium or Pepto-Bismol for diarrhea continue home medications. Follow-up with your PCP in 3 to 5 days for reevaluation if symptoms persist. Return to the ED if new or worsening symptoms. All discharge instructions reviewed with patient and/or family. Voiced understanding. BAN ROBBINS DO Jul 02, 2022 18:48
[2022-07-02 19:57] VITALS: BP 135/93
== END 2022-07-02 19:57 | disposition home or self-care (01) ==
LOC: EDUNIT# 18:19 → ER FS 18:21
DX: B34.9 Viral infection, unspecified (principal)
CPT/HCPCS: 87635; 87636; 87804

== ENCOUNTER 2022-09-14 19:27 | Emergency (ER) | payer OTHER, MEDICAID ==
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
--- NOTE | 2022-09-14 20:27 | Diagnostic Imaging Report ---
INDICATION: Left wrist pain. FINDINGS: Two views of the left wrist show degenerative changes of the intercarpal joint spaces. There is no appreciable fracture or dislocation. IMPRESSION: Degenerative changes of the left wrist. This appears unchanged from a prior exam dated 05/22/2022. Dictated by: Dictated on workstation # [id number]
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
--- NOTE | 2022-09-14 20:27 | Diagnostic Imaging Report ---
INDICATION: Right knee injury. Three views of the right knee show no fracture, dislocation or pathologic effusion. IMPRESSION: Negative right knee. Dictated by: Dictated on workstation # [id number]
[2022-09-14 20:44] VITALS: BP 158/100
== END 2022-09-14 20:46 | disposition home or self-care (01) ==
LOC: EDUNIT# 19:27 → ER FS 19:31
DX: S39.012A Strain of muscle, fascia and tendon of lower back, initial encounter (principal); S63.502A Unspecified sprain of left wrist, initial encounter; S80.01XA Contusion of right knee, initial encounter; Z98.890 Other specified postprocedural states; Z28.310 Unvaccinated for COVID-19; V43.52XA Car driver injured in collision with other type car in traffic accident, initial encounter; Y92.410 Unspecified street and highway as the place of occurrence of the external cause
CPT/HCPCS: 72100; 73110; 73562